=== PATIENT | female | born 1955 | race Caucasian/White ===

== ENCOUNTER 2018-05-20 13:22 | Emergency (ER) | payer MEDICAID, SELFPAY ==
[2018-05-20 13:27] VITALS: BP 180/119; PULSE 95; RESP 20; TEMP 36.9; O2SAT 93; BMI 27.4
[2018-05-20 13:28] VITALS: BP 137/96
--- NOTE | 2018-05-20 13:47 | ED.VISSUMM ---
- ER Visit Summary Date of Service: 05/20/18 Chief Complaint: Cough History of Present Illness: The patient is a 63 F 2-week history of productive cough. Subjective fevers and sweats. History of COPD, tobacco history. No home O2. Call her PCP office sent to urgent care or ED. With the urgent care was told there was nothing they can do for her sent her to the ED. No chest pains. Occasional wheezing. Mild dyspnea. Similar symptoms in the past. Physical Examination: General: Alert and oriented ?3, no acute distress HEENT: Normocephalic, atraumatic. Moist mucosa membranes Neck: supple, nontender. Cardiovascular: Regular rate and rhythm, no murmurs Respiratory: Coarse breath sounds lower lobes, no distress Abdomen: Soft, nontender, nondistended Extremities: Nontender, no edema, pulses intact ?4 Neuro: no focal neurological deficits. Test Results: Chest x-ray: No acute process Emergency Department Course and Treatment: Patient vital signs stable pulse ox 90-91% room air on my evaluation no distress. She had rhonchorous on lung exam. Given DuoNeb treatment. Symptoms improved. Chest x-ray reviewed by myself shows no acute process. O2 on reevaluation 93%. With her COPD history treated with steroids antibiotics secondary to golds criteria. Patient has aerosols at home. Antibiotic started in ED. Signs and symptoms discussed to return. Smoking cessation discussed. Treatment Plan: [] Disposition: Discharge Impression: 1. COPD exacerbation This note was generated with [employer] dictation software. It may contain incorrect words, spelling, and punctuation that were not noted in review of the chart prior to signing ED Disposition - Plan for ED Patient: Disposition: Home or Assisted Living Chief Complaint: Cough Diagnosis: COPD exacerbation Instructions: ED COPD Flare Prescriptions: Azithromycin [Zithromax] 250 mg PO DAILY #4 tablet Prednisone [Deltasone] 60 mg PO DAILY #12 tablet Referrals: Pili Acevedo [Primary Care Provider] - 3-5 Days
[2018-05-20] MEDS: predniSONE 20 MG Tablet 60 MG PO (13:58)
[2018-05-20] MEDS: Ipratropium/Albuterol Sulfate 3 ML AMPUL.NEB INHALATION (13:59)
--- NOTE | 2018-05-20 14:01 | EKG12_ITS ---
Test Reason : SOB Blood Pressure : / mmHG Vent. Rate : 094 BPM Atrial Rate : 094 BPM P-R Int : 172 ms QRS Dur : 070 ms QT Int : 334 ms P-R-T Axes : 085 203 074 degrees QTc Int : 417 ms Normal sinus rhythm Indeterminate axis Pulmonary disease pattern Right ventricular hypertrophy Abnormal ECG Confirmed by CECE CLEMENTS, RIP ([id number]), video editor TRACE PALAFOX ([id number]) on 05/24/2018 5:02:54 PM Referred By: SCAR Confirmed By:RIP ZHAO MD
[2018-05-20 14:02] VITALS: PULSE 103; RESP 20
--- NOTE | 2018-05-20 14:33 | RAD_ITS ---
STUDY: X-RAY CHEST REASON FOR EXAM: Female, 63 years old. Cough TECHNIQUE: PA and lateral views of the chest. COMPARISON: None. FINDINGS: There is a small focus of density within the middle lobe seen on the lateral view There is no demonstrated pleural abnormality.. Normal size heart. Normal mediastinum and rafia. Normal visualized pulmonary arteries. There is atherosclerotic calcification of the aortic arch with tortuosity. Normal visualized thoracic spine. Normal visualized ribs, clavicles, and shoulders. There is no demonstrated abnormality of the visualized soft tissue structures of the upper abdomen. RAD/Chest PA and Lateral IMPRESSION: Moderate focal soft tissue density seen on lateral view within the middle lobe suggesting probable small focal infiltrate and/or atelectasis.. Electronically Signed: Balbina Villela MD at 15:31 EST Tel , Service support ,
[2018-05-20 14:51] VITALS: BP 140/79; PULSE 75; RESP 20; O2SAT 93
[2018-05-20] MEDS: Azithromycin 250 MG Tablet 500 MG PO (14:53)
== END 2018-05-20 14:55 | disposition home or self-care (01) ==
PROVIDERS: Emergency Provider Emergency Medicine
DX: J44.1 Chronic obstructive pulmonary disease with (acute) exacerbation (principal); I10 Essential (primary) hypertension; Z72.0 Tobacco use; Z79.899 Other long term (current) drug therapy
CPT/HCPCS: 71046; 93005; 94640; 99283

== ENCOUNTER → 2018-06-07 16:13 | Outpatient (CLI) | payer MEDICAID, SELFPAY ==
[2018-05-20 13:27] VITALS: BMI 27.4
--- NOTE | 2018-06-07 16:16 | BI_ITS ---
MAMMOGRAPHY - BILATERAL SCREENING REASON FOR EXAM: Female, 63 years old. Routine annual screening examination. PERTINENT HISTORY: Non-contributory. TECHNIQUE: Digital bilateral breast jose ramon (3D mammographic acquisition) in the CC and MLO projections. 2-D mediolateral oblique (MLO) and craniocaudad (CC) views of both breasts were obtained. CAD: Full Field Digital Mammography with Computer Added Detection was performed. COMPARISON: None. Baseline examination. FINDINGS: Breast Composition: The breasts are heterogeneously dense, which may obscure small masses. There are no dominant masses or suspicious calcifications. Small bilateral axillary lymph nodes. No other significant abnormalities are identified. BI/SCREENING MAMM (CAD), BILAT IMPRESSION: Negative screening mammogram. Yearly followup mammogram recommended. (A) ASSESSMENT CATEGORY: BIRADS Category 2: Benign. A letter regarding these results will be sent to the patient by the facility within 30 days. Approximately 10% of breast cancers are not detected by mammography. A normal mammogram should not delay biopsy of a clinically suspicious abnormality. [id number] Electronically Signed: Bismark Milan MD at 13:43 EST , Service support ,
== END ==
DX: Z12.31 Encounter for screening mammogram for malignant neoplasm of breast (principal)
CPT/HCPCS: 77063; 77067

== ENCOUNTER → 2018-06-13 14:49 | Outpatient (CLI) | payer MEDICAID, SELFPAY ==
[2018-05-20 13:27] VITALS: BMI 27.4
--- NOTE | 2018-06-13 14:53 | ECHOD_ITS ---
Reason For Study: ABN EKG Procedure This was a 2D Doppler, Color Flow transthoracic echocardiogram. The study was technically difficult. Exam performed in department. Left Ventricle Normal LV size. Left ventricular systolic function is normal. The estimated ejection fraction is 70 %. Stage 1 diastolic dysfunction. No regional wall motion abnormalities noted. Right Ventricle Normal RV size. Normal systolic function. Atria Normal left atrium. Normal right atrium. Mitral Valve Normal mitral valve. Pulmonic Valve Normal pulmonic valve. Great Vessels Normal aortic root. The pulmonary artery is normal size. Normal inferior vena cava. Pericardium/Pleural No pericardial effusion. MMode/2D Measurements & Calculations LVIDd: 3.9 cm IVSd: 0.62 cm Ao root diam: 3.1 cm LVIDs: 2.3 cm LVPWd: 0.87 cm RVDd: 2.7 cm FS: 40.4 % LAV(MOD-bp): 23.8 ml LA dimension(2D): 3.1 cm LA A4C-A/L_phl: 10.4 cm2 LAV(MOD-bp) Indexed: 14.2 ml/m2 LAV(MOD-sp2): 28.5 ml LAV(MOD-sp4): 19.4 ml RA A4 area: 9.5 cm2 Time Measurements MV dec time: 0.31 sec Doppler Measurements & Calculations MV E max dominick: 69.7 cm/sec Lat Peak E' Dominick: 10.0 cm/sec Med Peak E' Dominick: 10.2 cm/sec MV A max dominick: 85.8 cm/sec E/E' lat: 7.0 E/E' med: 6.8 MV E/A: 0.81 Ao V2 max: 123.4 cm/sec LV V1 max: 101.5 cm/sec PA V2 max: 101.8 cm/sec Ao max P.1 mmHg LV V1 max P.1 mmHg PI end-d dominick: 150.9 cm/sec Interpretation Summary Normal LV size. Left ventricular systolic function is normal. The estimated ejection fraction is 70 %. Stage 1 diastolic dysfunction. Structurally normal valves. Ordering Physician: SELENE ABDI Referring Physician: SELENE ABDI FREE Performed By: Ariane Gómez, DIA, RVT
== END ==
DX: R94.31 Abnormal electrocardiogram [ECG] [EKG] (principal)
CPT/HCPCS: 93306

== ENCOUNTER 2018-12-25 22:23 | Inpatient (IN) | payer MEDICAID, SELFPAY ==
[2018-12-25 22:25] VITALS: BP 165/103; PULSE 78; RESP 28; TEMP 36.6; O2SAT 86; O2SAT 92; O2SAT 94; BMI 30.1
[2018-12-25 22:33] VITALS: TEMP 36.6; O2SAT 95
--- NOTE | 2018-12-25 22:33 | EKG12_ITS ---
Test Reason : CP Blood Pressure : / mmHG Vent. Rate : 082 BPM Atrial Rate : 082 BPM P-R Int : 180 ms QRS Dur : 078 ms QT Int : 372 ms P-R-T Axes : 058 103 072 degrees QTc Int : 434 ms Normal sinus rhythm Possible Right ventricular hypertrophy Abnormal ECG Confirmed by CECE CLEMENTS, RIP ([id number]), editor managing director CINTHYA DIEZ ([id number]) on 12/27/2018 1:32:02 PM Referred By: Iram Mcdowell Confirmed By:RIP ZHAO MD
--- NOTE | 2018-12-25 22:37 | RAD_ITS ---
STUDY: X-RAY CHEST REASON FOR EXAM: Female, 63 years old. Chest pain. TECHNIQUE: 2 frontal images of the chest were obtained. COMPARISON: May 20, 2018 FINDINGS: There is no new focal consolidation. Normal size heart. Normal mediastinum and rafia. Normal visualized pulmonary arteries. There is atherosclerotic calcification of the aortic arch. Normal visualized thoracic spine. Normal visualized ribs, clavicles, and shoulders. There is no demonstrated abnormality of the visualized soft tissue structures of the upper abdomen. RAD/Chest 1 View (Portable) IMPRESSION: No acute cardiopulmonary process. Electronically Signed: Ling Mendez MD at 23:15 EDT Tel , Service support ,
[2018-12-25 22:50] LABS: Absolute Lymphocyte Count 2.05 X10^3/uL (0.83-4.51); Basophil# 0.14 X10^3/uL; Basophil% 0.9 % (0-1); Eosinophil# 0.35 X10^3/uL; Eosinophils% 2.2 % (0-5); Hematocrit 53.4 % (37-47); Hemoglobin 17.5 g/dL (12.0-15.0); Lymphocyte # 2.05 X10^3/ul (4.0); Lymphocyte % 12.8 % (19-41); Mean Corp Hgb Conc 32.8 g/dL (32-36); Mean Corpuscular Hgb 28.4 pg (27.0-32.0); Mean Corpuscular Volume 86.7 fL (81-99); Mean Platelet Vol. 10.4 fl (6.2-12.0); Monocyte# 1.46 X10^3/uL; Monocyte% 9.1 % (0-10); NRBC Flagged by Analyzer 0 % (0-5); Neutrophil # 12.01 X10^3/uL (2.7-7.7); Neutrophil % 74.8 % (47-70); Platelet Count 284 K/mm3 (150-450); RBC Distribution Width CV 13.2 % (11.6-14.6); RBC Distribution Width SD 41.6 fl (35.1-43.9); Red Blood Count 6.16 M/mm3 (4.2-5.4); White Blood Count 16.1 K/mm3 (4.4-11.0)
--- NOTE | 2018-12-25 22:54 | ED.DCSUM_ITS ---
History of Present Illness Chief Complaint: Chest Pain Detail of Chief Complaint: cp/sob Informant: Patient Onset: Weeks - 1-2 Activity at onset: Light Activity Timing: Intermittent Quality: Dyspnea on exertion Current Severity: Mild Maximum Severity: Moderate Worsened by: Exertion Relieved by: Albuterol, Rest Associated Symptoms: Cough, Green sputum, Sweats - today. Negative for: Bloody Sputum, Chills, Fever, Rhinorrhea, Sore throat Chest Pain: Continuous, Aching - substernal w/ discomfort in mid-upper back as well. Negative for: Pleuritic Narrative: Patient with a history of COPD. No known heart disease. She states she quit smoking a couple weeks ago and simultaneously started using nicotine patches of some sort. Since then, she has had intermittent lightheadedness, and dyspnea with exertion. Dyspnea with exertion seems to have been getting worse. She has been coughing up some green sputum which is different than usual. She states this afternoon, at least several hours ago but she really cannot tell me how many, she started feeling clammy and sweaty, use her albuterol, and at some point started having discomfort in her upper back and her chest which is still present. She is a fairly poor historian. - Past Medical History (1) COPD (chronic obstructive pulmonary disease) Status: Chronic (2) HTN (hypertension) Status: Chronic (3) Anxiety Status: Chronic Past Medical History - Allergies and Home Meds Allergies/Adverse Reactions: Allergies diphenhydramine [From Benadryl] Allergy (Verified 05/20/18 13:24) Unknown Penicillins Allergy (Verified 05/20/18 13:24) Swelling Primary Care Physician: Pili Acevedo [Primary Care Provider] - Surgical History: hysterectomy Lives: Spouse/ Significant Other Smoking Status: Former smoker Drugs: None Review of Systems General: Reports: Malaise. Denies: Chills, Fever, Sweats Eyes: Denies: Visual changes - bilaterally, Diplopia ENT: Denies: Rhinorrhea, Sore throat Cardiovascular: Reports: Chest pain. Denies: Palpitations Respiratory: Reports: Dyspnea, Cough, Sputum, Dyspnea on exertion. Denies: Orthopnea Gastrointestinal: Denies: Abdominal pain, Nausea, Vomiting, Diarrhea, Melena, Hematochezia Genitourinary: Denies: Dysuria, Hematuria, Frequency Musculoskeletal: Reports: Back pain, Swelling - BLE lately. Denies: Extremity Pain Skin: Denies: Rash, Wounds Neurological: Denies: Headache, Weakness, Numbness Psych: Reports: Anxiety. Denies: Depression Physical Exam Vital Signs/Narrative: Vital Signs Temp Pulse Resp BP Pulse Ox 12/25/18 22:33 97.8 F 95 12/25/18 22:25 97.8 F 78 28 H 165/103 H 94 Inital Vital Signs reviewed: Yes General: Well nourished, Well developed, No Acute Distress Head: Normocephalic, Atraumatic Eyes: Perrl, EOMI ENT: Moist mucous membranes, No rhinorrhea, - - PO clear Neck: Supple, Nontender, No lymphadenopathy, No JVD Cardiovascular: Regular rate, Regular rhythm, No murmurs, Normal S1, Normal S2 Respiratory: No distress, Chest nontender, Wheezing - throughout expiration bilat, Diminished. Negative for: Rales, Rhonchi Abdomen: Soft, Nontender, Nondistended, Normal bowel sounds Back: Nontender, Normal Inspection. Negative for: CVA tenderness Extremities: Nontender, Edema - 1+ nonpitting bilat LE. Negative for: Calf Tenderness Skin: Normal color, No rash, Diaphoresis - clammy, No Trauma Neurological: Alert, Oriented x3, Cranial nerves II-XII grossly intact, Normal Strength, Normal Sensation Psychological: Normal Mood, - - anxious Diagnostic/Tx/Re-eval Impressions Chest X-Ray 12/25/18 22:37 IMPRESSION: No acute cardiopulmonary process. Electronically Signed: Ling Mendez MD at 23:15 EDT Tel , Service support , 12/25/18 22:37 Chest 1 View (Portable) [RAD] Stat Laboratory Results 12/25/18 12/25/18 22:41 22:41 WBC 16.1 H RBC 6.16 H Hgb 17.5 H Hct 53.4 H MCV 86.7 MCH 28.4 MCHC 32.8 RDW Std Deviation 41.6 RDW Coeff of Ruy 13.2 Plt Count 284 MPV 10.4 Immature Gran % (Auto) 0.200 Neut % (Auto) 74.8 H Lymph % (Auto) 12.8 L [place] % (Auto) 9.1 Eos % (Auto) 2.2 Baso % (Auto) 0.9 Absolute Neuts (auto) 12.0 H Absolute Lymphs (auto) 2.05 Nucleated RBC % 0 Sodium 136 Potassium 4.5 Chloride 99 Carbon Dioxide 30.0 Anion Gap 7 BUN 21 H Creatinine 0.99 Estim Creat Clear Calc 46.60 Est GFR (MDRD) Af Amer 73 Est GFR (MDRD) Non-Af 60 BUN/Creatinine Ratio 21.3 H Glucose 125 H Calcium 9.8 Troponin I 0.405 H - Rhythm Strip Rhythm Strip: Sinus Rhythm Rate: 82 Ectopy: None - EKG Initial EKG Interpretation: Sinus Rhythm, No Acute Injury Pattern, - - RVH Prior: Unchanged Treatment - Dyspnea: Oxygen, Albuterol, NTG SL, Lovenox SQ, Steroid, - - aspirin - Medical Decision Making EKG appears unremarkable and unchanged compared with her prior. Her chest x-ray shows no acute pneumonia or infiltrates and mediastinum is unremarkable. She was initially treated with nebulizer treatments in addition to Solu-Medrol as most of her symptoms sound related to her COPD and may also be related to some nicotine withdrawal. She was wheezy to begin with but in no respiratory distress. After 2 breathing treatments, her wheezing sounded worse, she stated that she was no more short of breath and she had no worsening or changes in her chest discomfort. Her troponin returned abnormal at 0.4, suggesting that her chest discomfort could be unstable angina although it could be due to hypoxia as well. Therefore she was given aspirin, Lovenox, also nitroglycerin to help her chest discomfort in addition to some more nebulizer treatments. She is clinically and hemodynamically stable. Discussed with hospitalist, will admit to PCU for further work-up and treatment. ED Disposition - Plan for ED Patient: Disposition: Acute Care Hospital [facility] Diagnosis: Unstable angina, COPD with exacerbation, Hypoxemia Referrals: Pili Acevedo [Primary Care Provider] -
[2018-12-25] MEDS: MethylPREDNISolone 125 MG/2 ML Vial IV (22:59)
[2018-12-25 23:06] LABS: Anion Gap 7 (5-15); BUN 21 mg/dL (7-18); BUN/Creat Ratio 21.3 RATIO (10-20); Calcium,Total 9.8 mg/dL (8.5-10.1); Chloride 99 mmol/L (98-107); Creatinine, Serum 0.99 mg/dL (0.55-1.02); EST Glomerular Filtration Rate 60 mL/min (>60); Est Glom Filt Rate - Afr Amer 73 mL/min (>60); Glucose 125 mg/dL (74-106); Potassium 4.5 mmol/L (3.5-5.1); Sodium Level 136 mmol/L (136-145)
[2018-12-25] MEDS: Ipratropium/Albuterol Sulfate 3 ML AMPUL.NEB INHALATION (23:14)
[2018-12-25] MEDS: Albuterol 2.5 MG/3 ML VIAL.NEB. INHALATION (23:15)
[2018-12-25 23:17] VITALS: PULSE 82; RESP 21
[2018-12-25 23:25] VITALS: BP 116/88; PULSE 88; RESP 20; O2SAT 97
--- NOTE | 2018-12-25 23:27 | ED.RN ---
PT IS CURRENTLY GETTING A BREATHING TREATMENT, MOUTH PIECE WAS NOT AFFECTIVE SWITCHED PT TO THE BREATHING TREATMENT MASK, PT IS SWEATING PROFUSELY DR. BLAKELY MADE AWARE, NO FURTHER NEEDS AT THIS TIME WILL CONTINUE TO MONITOR THE PT.
[2018-12-25 23:34] VITALS: BP 116/88; PULSE 85; RESP 22; TEMP 36.8; O2SAT 94
--- NOTE | 2018-12-25 23:52 | HP.PCM_ITS ---
History of Present Illness Date of Admission: 12/26/18 Chief Complaint: shortness of breath The patient is a 63 year old F with past medical history of COPD, hypertension and anxiety. She was admitted through the ED on 12/26/2018 with a complaint of shortness of breath. She quit smoking about 2 weeks ago and was started on nicotine patch but states she is not comfortable using the patch. She complains of shortness of breath was started a few hours prior to admission today. She states was relieved with use of her rescue inhalers. She also had assisted wheezing and a cough productive of greenish sputum. She denied any chest pain at time of review though she did admit to some tightness in her chest. She denied any dizziness but admitted to feeling lightheaded. Review of systems was otherwise negative. The ED, vitals were significant for tachypnea with respiratory rate of 22 at time of admission she was on 4 L of oxygen at time of review. She was afebrile and chemistry was essentially normal. Initial troponin was 0.405 and CBC showed WBC of 16.1 with hemoglobin of 17.5. Chest x- ray showed no acute cardia pulmonary process. She does have a history of DVT or PE and has not been on any long distance journey recently. EKG showed no acute ST changes and showed possible right ventricular hypertrophy. She has been admitted to be managed for acute hypoxic respiratory failure due to COPD exacerbation and non-STEMI. [] Past Medical History Past Medical History (Chronic Problems): Chronic Problems COPD (chronic obstructive pulmonary disease) (Chronic) HTN (hypertension) (Chronic) Anxiety (Chronic) COPD with exacerbation (Chronic) Allergies diphenhydramine [From Benadryl] Allergy (Verified 05/20/18 13:24) Unknown Penicillins Allergy (Verified 05/20/18 13:24) Swelling Home Medications: Ambulatory Orders Medication Instructions Recorded Albuterol Inhaler [Ventolin Hfa 1 - 2 puff INHALATION Q4H PRN PRN 05/20/18 (SP)] Metoprolol Tartrate 50 mg PO BID 05/20/18 Sertraline HCl 25 mg PO DAILY 05/20/18 Budesonide/Formoterol 160/4.5 1 puff INHALATION BID 12/26/18 [Symbicort 160/4.5 Mcg Inhaler (SP)] Lisinopril/Hydrochlorothiazide 1 ea PO DAILY 12/26/18 [Lisinopril-Hctz 10-12.5 mg Tab] Surgical History: hysterectomy Psychiatric History: Anxiety [employer] WORK[employer] History: No pertinent [employer] WORK[employer] history Lives: Spouse/ Significant Other Smoking Status: Former smoker - quit 2 weeks ago Alcohol: None Drugs: None - *Family History Maternal History Items: Asthma, COPD Paternal History Items: No pertinent history Review of Systems Constitutional: Denies: Anorexia, Chills, Fever, Malaise, Weakness, Fatigue Eyes: Denies: Blurred vision HEENT: Denies: Head Aches, Sinus Congestion, Sinus Drainage Cardiovascular: Reports: Chest Tightness. Denies: Chest Pain, Chest Pressure, Edema, Light Headedness, Orthopnea, Palpitations, Paroxysmal Noc. Dyspnea, Syncope Respiratory: Reports: Shortness of Breath, Shortness of breath at rest, Shortness of breath upon exertion, Sputum production, Wheezing. Denies: Cough, Hemoptysis, Pleuritic Pain Gastrointestinal: Denies: Abdominal Pain, Nausea, Vomiting Genitourinary: Denies: Dysuria Musculoskeletal: Denies: Joint Pain, Joint Tenderness Skin: Denies: Rash, Wounds Neurological: Denies: Numbness, Tingling, Focal weakness Psychiatric: Denies: Anxiety, Depression, Homicidal Ideations, Suicidal Ideations Hematologic/ Lymphatic: Denies: Easy Bruising, Easy Bleeding VTE Information - Inpt Only VTE Present on Admission: No VTE Pharm Prophylaxis ordered?: Yes Patient Problems: Active and Suspected Problems Unstable angina (Acute) Hypoxemia (Acute) - Physical Exam General: Alert, Oriented x3, Cooperative, No apparent distress HEENT: Atraumatic, PERRLA, EOMI, Normocephalic Oral: Dry Mucosa Neck: Supple, No JVD, Negative Carotid Bruits Lungs: Diminished, Wheezes, - - decreased breath sounds in all lung chan, lungs sound very tight. moderate wheezing in all lung chan; no crackles. on 4L of oxygen by nasal canula Cardiovascular: Regular rate, No murmurs Abdomen: Bowel Sounds Present, Soft, Non Tender Extremities: No clubbing, No cyanosis, No edema, Capillary Refill Less than 3 Seconds Skin: No rashes, No breakdown Musculoskeletal: No Tenderness to Palpation of Joints or Extremities Lymphatic: No Cervical, Supraclavicular, or Inguinal Adenopathy Neurological: Cranial nerves II-XII grossly intact, Neuro grossly intact, Motor Exam 5/5 strength throughout Psych/Mental Status: Normal Affect, Appropriate, Alert and oriented to time, place, person, mood and affect Vital Signs Temp Pulse Resp BP Pulse Ox 98.2 F 85 22 H 116/88 H 94 12/25/18 23:34 12/25/18 23:34 12/25/18 23:34 12/25/18 23:34 12/25/18 23:34 Oxygen Flow Rate (L/min) 4 Oxygen Delivery Method Room Air Weight: 164 lb 14.492 oz Body Mass Index (BMI) 30.1 Laboratory Tests Past 24 Hrs 12/25/18 12/25/18 22:41 22:41 WBC 16.1 H RBC 6.16 H Hgb 17.5 H Hct 53.4 H MCV 86.7 MCH 28.4 MCHC 32.8 RDW Std Deviation 41.6 RDW Coeff of Ruy 13.2 Plt Count 284 MPV 10.4 Immature Gran % (Auto) 0.200 Neut % (Auto) 74.8 H Lymph % (Auto) 12.8 L Wallace % (Auto) 9.1 Eos % (Auto) 2.2 Baso % (Auto) 0.9 Absolute Neuts (auto) 12.0 H Absolute Lymphs (auto) 2.05 Nucleated RBC % 0 Sodium 136 Potassium 4.5 Chloride 99 Carbon Dioxide 30.0 Anion Gap 7 BUN 21 H Creatinine 0.99 Estim Creat Clear Calc 46.60 Est GFR (MDRD) Af Amer 73 Est GFR (MDRD) Non-Af 60 BUN/Creatinine Ratio 21.3 H Glucose 125 H Calcium 9.8 Troponin I 0.405 H Diagnostic Data Chest X-Ray 12/25/18 22:37 IMPRESSION: No acute cardiopulmonary process. Electronically Signed: Ling Mendez MD at 23:15 EDT Tel , Service support , Assessment/Plan All Active Problems Unstable angina (Acute) Hypoxemia (Acute) 7-year-old female admitted with complaint of shortness of breath. 1. Acute hypoxic respiratory failure due to COPD exacerbation * admit to pCU with telemetry * CXR showed no actue cardiopulmonary process, though lungs sound very tight and she has wheezing and diminshed breath sounds * has a cough productive of greenish sputum * WBC is 16.1 * IV solumedrol 40mg q8 * breathing treatments with duonebs * sputum culture * IV levaquin 750mg daily. * titrate oxygen to maintain sats>90% * stat ABG * consider pulmo consult tomorrow if she still requires increasing amounts of oxygen * 2. NSTEMI: * initial troponin is 0.405; denies any chest pain, but admits to chest tightness. * received aspirin, and therapeutic dose of lovenox in ED * will cycle troponin * 2D echo * consult cardiology in the morning * high intensity statin * 3. COPD exacerbation: as under 1. 4. Nicotine dependence: * used to smoke ~ 1/2 pack daily; quit 2 weeks ago. * Says she cant tolerate the nicotine patch and has abstained from smoking without the aid of the patch. 5. Hypertension: on metoprolol 6. Anxiety: on sertraline DVT prophylaxis; received therapeutic dose of lovenox Code status: DNRCCA * Patient counseled extensively about different types of CODE STATUS including full code, DNR CCA and DNR CCA. Patient elects to be DNRCCA. Total [id number] time 16 minutes. Code Visit OBSV E&M: 20967 Initial observation care L3 Procedures: 56368 Advncd Care Plan 30 Min
[2018-12-25] MEDS: Enoxaparin 80 MG/0.8 ML Syringe SC (23:56)
[2018-12-25] MEDS: 0.9% Normal Saline 1,000 ML 999 ML IV (23:56)
[2018-12-25] MEDS: Aspirin 81 MG TAB.CHEW 324 MG PO (23:56)
[2018-12-25] MEDS: Nitroglycerin SL (ED/IMG/CATH) 0.4 MG TABLET SUBLINGUAL (23:58)
[2018-12-26] VITALS (36 sets, daily range): BP systolic 92–155; BP diastolic 56–97; PULSE 74–119; RESP 12–23; TEMP 36.2–37.2; O2SAT 92–99; BMI 29.3; BMI 29.4
[2018-12-26] MEDS: Albuterol 2.5 MG/3 ML VIAL.NEB. INHALATION ×2 (00:01)
[2018-12-26 00:31] LABS: Allen Test POS; Base Excess 1 mmol/L (-2 to +2); Bicarbonate 27.4 mmol/L (22-26); Blood Gas Specimen Type ART; O2 Delivery Device Nasal Can; PO2 109 mmHG (75-100); SITE R Radial; SO2 97 % (95-99); Time Given 10; Total Carbon Dioxide 29 mmol/L; pCO2 56.6 mmHg (35-45); pH 7.29 (7.35-7.45)
[2018-12-26] MEDS: levoFLOXacin IV 750 MG/150 ML BAG 100 MG IV (01:51)
[2018-12-26 02:20] LABS: Absolute Lymphocyte Count 0.57 X10^3/uL (0.83-4.51); Absolute Neutrophil Count 12.7 X10^3/uL (2.0-7.7); Basophil# 0.06 X10^3/uL; Basophil% 0.4 % (0-1); Eosinophil# 0.03 X10^3/uL; Eosinophils% 0.2 % (0-5); Hematocrit 48.7 % (37-47); Hemoglobin 16.2 g/dL (12.0-15.0); Lymphocyte # 0.57 X10^3/ul (4.0); Lymphocyte % 4.2 % (19-41); Mean Corp Hgb Conc 33.3 g/dL (32-36); Mean Corpuscular Hgb 28.6 pg (27.0-32.0); Mean Corpuscular Volume 85.9 fL (81-99); Mean Platelet Vol. 10.2 fl (6.2-12.0); Monocyte# 0.17 X10^3/uL; Monocyte% 1.3 % (0-10); NRBC Flagged by Analyzer 0 % (0-5); Neutrophil % 93.7 % (47-70); POSITIVE DIFFERENTIAL YES; Platelet Count 220 K/mm3 (150-450); RBC Distribution Width CV 13.2 % (11.6-14.6); RBC Distribution Width SD 41.7 fl (35.1-43.9); Red Blood Count 5.67 M/mm3 (4.2-5.4); White Blood Count 13.6 K/mm3 (4.4-11.0)
[2018-12-26 02:23] LABS: Differential Indicated SCAN CRITERIA MET
[2018-12-26 02:35] LABS: Cholesterol 215 mg/dL (200); High Density Lipoprotein 82 mg/dL; Triglycerides 55 mg/dL; Very Low Density Lipoprotein 11 mg/dL (5-40)
[2018-12-26] MEDS: Acetaminophen 325 MG Tablet 650 MG PO (02:43)
[2018-12-26 03:38] LABS: Differential Comment SCANNED
[2018-12-26 04:29] LABS: Anion Gap 9 (5-15); Chloride 105 mmol/L (98-107); Potassium 4.1 mmol/L (3.5-5.1); Sodium Level 139 mmol/L (136-145)
[2018-12-26 04:32] LABS: BUN 21 mg/dL (7-18); Calcium,Total 9.3 mg/dL (8.5-10.1); Creatinine, Serum 0.84 mg/dL (0.55-1.02); EST Glomerular Filtration Rate 73 mL/min (>60); Est Glom Filt Rate - Afr Amer 88 mL/min (>60); Estimated Creatinine Clearance 54.92 ml/min; Glucose 144 mg/dL (74-106)
[2018-12-26] MEDS: 0.9% NaCl Peripheral Flush Adult/Peds IV (05:27)
--- NOTE | 2018-12-26 05:55 | ECHOCS_ITS ---
Reason For Study: Dyspnea/SOB Procedure This was a 2D Doppler, Color Flow transthoracic echocardiogram. The study was technically difficult. Contrast injection was performed. Exam performed portable in ICU/CCU. Left Ventricle Normal LV size. The estimated ejection fraction is 50 %. Mild segmental systolic dysfunction (see wall motion). Stage 1 diastolic dysfunction. Mid-Inferior: Hypokinetic. Mid-anteroseptal : Mildly hypokinetic. Mid-Anterior : Mildly hypokinetic. The rest of the wall segments are normal. Right Ventricle Normal RV size. Normal systolic function. Atria Normal left atrium. Normal right atrium. Mitral Valve Normal mitral valve. Tricuspid Valve Normal tricuspid valve. Aortic Valve The aortic valve is not well visualized. Pulmonic Valve Normal pulmonic valve. Great Vessels Normal aortic root. The pulmonary artery is normal size. Normal inferior vena cava. Pericardium/Pleural No pericardial effusion. Medication Diluted definity 3ml given slow IV push to enhance endocardial definition. MMode/2D Measurements & Calculations LVIDd: 3.9 cm IVSd: 0.77 cm Ao root diam: 2.5 cm LVIDs: 2.9 cm LVPWd: 0.83 cm FS: 26.9 % LAV(MOD-bp): 17.2 ml LA A4 area: 8.0 cm2 LA dimension(2D): 3.0 cm LAV(MOD-bp) Indexed: 9.9 ml/m2 LAV(MOD-sp2): 19.1 ml LAV(MOD-sp4): 15.4 ml RA A4 area: 5.9 cm2 Doppler Measurements & Calculations MV E max dominick: 47.9 cm/sec Lat Peak E' Dominick: 5.6 cm/sec Med Peak E' Dominick: 4.6 cm/sec MV A max dominick: 86.1 cm/sec E/E' lat: 8.5 E/E' med: 10.5 MV E/A: 0.56 Ao V2 max: 123.6 cm/sec LV V1 max: 111.4 cm/sec Ao max P.1 mmHg LV V1 max P.0 mmHg Ao V2 mean: 90.9 cm/sec Ao mean P.6 mmHg Ao V2 VTI: 19.6 cm Interpretation Summary Normal LV size. The estimated ejection fraction is 50 %. Mild segmental systolic dysfunction (see wall motion). Stage 1 diastolic dysfunction. Contrast injection was performed. Ordering Physician: Iram Mcdowell Referring Physician: Pili Alcocer Free [facility] Performed By: Leyla Arteaga RDCS, RVT
[2018-12-26] MEDS: Ipratropium/Albuterol Sulfate 3 ML AMPUL.NEB INHALATION ×4 (07:15→19:25)
--- NOTE | 2018-12-26 07:18 | CON.PCM_ITS ---
Reason for Consult Date of Consultation: 12/26/18 Reason for Consultation: Chest tightness History of Present Illness: The patient is a 63 year old F with past medical history of COPD, hypertension and anxiety. She was admitted through the ED on 12/26/2018 with a complaint of shortness of breath. She quit smoking about 2 weeks ago and was started on nicotine patch but states she is not comfortable using the patch. She complains of shortness of breath was started a few hours prior to admission today. She states was relieved with use of her rescue inhalers. She also had assisted wheezing and a cough productive of greenish sputum. She had experienced some chest tightness which she said went into her back then was also associated with a headache. It was not long-lasting. She presented to the emergency room was evaluated and admitted for further evaluation. Cardiac troponin enzymes were noted to be mildly abnormal initially and then further on appear to elevate. She has denied any previous episodes of chest discomfort with exertion. She however complains of a persistent headache. Past Medical History Allergies/Adverse Reactions: Allergies diphenhydramine [From Benadryl] Allergy (Verified 05/20/18 13:24) Unknown Penicillins Allergy (Verified 05/20/18 13:24) Swelling Home Medications: Ambulatory Orders Medication Instructions Recorded Albuterol Inhaler [Ventolin Hfa 1 - 2 puff INHALATION Q4H PRN PRN 05/20/18 (SP)] Metoprolol Tartrate 50 mg PO BID 05/20/18 Sertraline HCl 25 mg PO DAILY 05/20/18 Budesonide/Formoterol 160/4.5 1 puff INHALATION BID 12/26/18 [Symbicort 160/4.5 Mcg Inhaler (SP)] Lisinopril/Hydrochlorothiazide 1 ea PO DAILY 12/26/18 [Lisinopril-Hctz 10-12.5 mg Tab] Past Medical History (Chronic Problems): Chronic Problems COPD (chronic obstructive pulmonary disease) (Chronic) HTN (hypertension) (Chronic) Anxiety (Chronic) COPD with exacerbation (Chronic) Surgical History: hysterectomy Psychiatric History: Anxiety NURSING STUDENT History: No pertinent NURSING STUDENT history - *Family History Maternal History Items: Asthma, COPD Paternal History Items: No pertinent history Lives: Spouse/ Significant Other Smoking Status: Former smoker Alcohol: None Drugs: None Review of Systems - Review of Systems General: Denies: Fever, Night Sweats, Fatigue HEENT: Denies: Vision Change Cardiovascular: Reports: Chest Discomfort, Chest Discomfort at Rest. Denies: Shortness of Breath, Orthopnea, PND, Peripheral Edema, Palpitations, Lightheadedness, Dizziness, Near Syncope, Syncope Respiratory: Denies: Cough, Sputum Production, Hemoptysis Gastrointestinal: Denies: Hematemesis, Hematochezia, Melena Genitourinary: Denies: Dysuria, Hematuria Muscoloskeletal: Reports: Myalgias Skin: Denies: Rash Neurological: Reports: Dizziness Psychiatric: Reports: Anxiety Endocrine: Denies: Unexplained Weight Loss Hematologic/ Lymphatic: Denies: Anemia Subjectve: Pleasant lady in no distress Objective: Vital Signs Temp Pulse Resp BP Pulse Ox 97.5 F L 102 H 20 H 137/81 H 94 12/26/18 05:30 12/26/18 05:30 12/26/18 05:30 12/26/18 05:30 12/26/18 05:30 Oxygen Flow Rate (L/min) 2 Oxygen Delivery Method Nasal Cannula Weight: 160 lb 7.944 oz Body Mass Index (BMI) 29.3 Intake and Output for Last 24 Hours 12/24/18 12/25/18 12/26/18 23:59 23:59 23:59 Intake Total 402 / 402 Balance 402 / 402 General: Awake, Alert, Oriented x 3 HEENT: PERRL, EOMI, Sclera Non Icteric Neck: Supple, Good ROM, No Lymph Node Enlargement Lungs: Clear to auscultation Cardiovascular: Regular Rhythm, Normal S1, Normal S2, No Murmurs, No Rubs, No Gallops Vascular: No Carotid Bruits, Normal Femoral Pulses, Normal Radial Pulses, Normal Dorsalis Pedal Pulse, Normal Posterior Tibial Pulses Abdomen: Bowel Sounds Present, Soft, Non Tender, No HSM, No Organomegaly Extremities: No Cyanosis, No Clubbing, No edema Musculoskeletal: No Erythema Skin: No Rashes Lymphatic: No Lymph Node Enlargement Neurological: No Focal Motor or Sensory Deficit Psych/Mental Status: Appropriate 12/25/18 22:41: WBC 16.1 H, RBC 6.16 H, Hgb 17.5 H, Hct 53.4 H, MCV 86.7, MCH 28.4, MCHC 32.8, Plt Count 284, MPV 10.4, Immature Gran % (Auto) 0.200, Neut % (Auto) 74.8 H, Lymph % (Auto) 12.8 L, [place] % (Auto) 9.1, Eos % (Auto) 2.2, Baso % (Auto) 0.9, Absolute Neuts (auto) 12.0 H, Nucleated RBC % 0 12/25/18 22:41: Sodium 136, Potassium 4.5, Chloride 99, Carbon Dioxide 30.0, Anion Gap 7, BUN 21 H, Creatinine 0.99, Est GFR (MDRD) Af Amer 73, Est GFR (MDRD) Non-Af 60, BUN/Creatinine Ratio 21.3 H, Glucose 125 H, Calcium 9.8, Troponin I 0.405 H 12/26/18 00:27: pH 7.29 L, Bicarbonate Actual 27.4 H, POC Total CO2 29, Base Exc ess 1, O2 Saturation 97, ABG pCO2 56.6 H, ABG pO2 109 H, Saeid Test POS 12/26/18 01:57: Triglycerides 55, Cholesterol 215 H, LDL Cholesterol 122, VLDL Cholesterol 11, HDL Cholesterol 82 12/26/18 01:57: Troponin I 1.420 H* 12/26/18 01:57: WBC 13.6 H, RBC 5.67 H, Hgb 16.2 H, Hct 48.7 H, MCV 85.9, MCH 28.6, MCHC 33.3, Plt Count 220, MPV 10.2, Immature Gran % (Auto) 0.200, Neut % (Auto) 93.7 H, Lymph % (Auto) 4.2 L, [place] % (Auto) 1.3, Eos % (Auto) 0.2, Baso % (Auto) 0.4, Absolute Neuts (auto) 12.7 H, Nucleated RBC % 0 12/26/18 01:57: Sodium 139, Potassium 4.1, Chloride 105, Carbon Dioxide 25.0, Anion Gap 9, BUN 21 H, Creatinine 0.84, Est GFR (MDRD) Af Amer 88, Est GFR (M DRD) Non-Af 73, BUN/Creatinine Ratio 25.0 H, Glucose 144 H, Calcium 9.3 12/26/18 04:52: Troponin I 1.130 H* Rhythm: EKG: Normal sinus rhythm with a rate of 81 bpm and no acute changes Assessment/Plan 1. Non-ST elevation myocardial infarction * Patient presents with somewhat atypical symptoms and is noted to have a non-ST elevation myocardial infarction with no EKG changes. I suspect that her chest discomfort was anginal in origin. * After discussion with the patient would recommend a cardiac catheterization. The risk benefits alternatives have been explained to her she understands and agrees to proceed. * Continue with aspirin * Loaded with clopidogrel * Continue beta-justin. * Further recommendations will depend on the results of the above * 2. Hyperlipidemia * Patient actually has an acceptable lipid profile and we will continue with the current therapy. * Continue statin * 3. Hypertension * Patient's blood pressure appears to be under good control we will continue current medical therapy. * * Thank you for allowing me to participate in the care of your patient. Please don't hesitate to call if any issues arise
[2018-12-26] MEDS: Metoprolol Tartrate 50 MG Tablet PO (07:58)
[2018-12-26 08:00] LABS: Hemoglobin A1c 5.8 % (4.2-6.3)
[2018-12-26] MEDS: TICAGRELOR 90 MG TABLET 180 MG PO (08:00)
--- NOTE | 2018-12-26 09:06 | CL.D_ITS ---
Patient Name: DIANA STATON I Study Date: 12/26/2018 Performing: Tico Mcgarry MD Ht: 61.81 inches 157 cm : 1955 Wt: 160.94 lbs 73 kg Age: 63 Gender: female BSA: 1.74 PROCEDURE(S) PERFORMED [id number]-[id number]/COR/LV CLINICAL PROFILE AND INDICATIONS Indications: ACS <= 24 hrs Heart Failure: None Stress/Imaging Stress/Image Study Performed: No CONCLUSIONS Mild coronary artery disease involving the proximal mid left anterior descending artery, mild disease involving the circumflex artery, high-grade stenosis in a nondominant but large right coronary arter y. And mildly depressed left ventricular systolic function with hypokinetic inferior wall RECOMMENDATIONS Referred for immediate PCI DESCRIPTION OF PROCEDURE The patient arrived to the procedure lab. The risks and benefits of the procedure as well as a full d escription of our services here and current unavailability of surgical backup were fully explained to the patient and/or their significant other prior to the catheterization. The Timeout was completed, verifying the correct patient and procedure. The patient's procedural site was prepped and draped in the usual fashion. Local anesthetic was given subcutaneously to right groin region with Lidocaine 2%. Using a modified Seldinger technique, arterial access was obtained via the right femoral artery, a 5 Fr sheath was inserted. Left Coronary Artery selective angiography was performed in multiple views u sing a 5 Fr. JL4 catheter. Right Coronary Artery selective angiography was then performed in multiple views using a 5 Fr. 3DRC (Franky) catheter. Left Ventriculography was performed in BHATT projection using a 5 Fr. Pigtail catheter. LV to AO pullback pressures were then recorded. CORONARY ANGIOGRAPHY DOMINANCE: Left Dominant LEFT HEART ASSESSMENT Left Ventricular Ejection Fraction: by LV Gram 45 % Anterior Hypokinesis - Mild. Inferior Mid Hypokinesis - Moderate Depressed Left Ventricular systolic function LEFT MAIN: Mild calcification LEFT ANTERIOR DESCENDING ARTERY: PROX LAD: Mild luminal irregularities less than 30% MID LAD: Mild luminal irregularities less than 30% CIRCUMFLEX ARTERY: MID CIRC: Non-obstructive RIGHT CORONARY ARTERY: MID RCA: 80 % Stenosis COMPLICATIONS PROCEDURE MEDICATIONS Versed 1 mg IV Oxygen: 2 L/min via nasal cannula Baby Aspirin (81mg) 1 Tabs PO @ 12/26/2018 08:22:16 Heparin 6000 unit(s) IV 12/26/2018 08:56:34 Nitro 200 mcg IC 12/26/2018 08:57:52 Nitro 200 mcg IC 12/26/2018 08:57:52 IV Bolus: .9 NaCl ml total 12/26/2018 08:58:00 SUMMARY OF HEMODYNAMIC DATA Time AIR REST ECG 08:19:42 AO 109/75 (92) SA 08:40:03 LV 107/10, 18 08:48:04 LV 113/13, 19 08:48:11 LV 124/1, 24 08:49:20 LVp 128/1, 28 08:49:33 AOp 135/77 (103) 08:49:38 Signed By Tico Mcgarry MD On 12/26/2018 09:05:26 Tico Mcgarry MD
--- NOTE | 2018-12-26 09:15 | NURSING ---
report called to Leia PALMER in ICU
--- NOTE | 2018-12-26 09:37 | CL.I_ITS ---
Patient Name: DIANA STATON I Study Date: 12/26/2018 Performing: Champ Michel MD Ht: 61.81 inches 157 cm : 1955 Wt: 160.94 lbs 73 kg Age: 63 Gender: female BSA: 1.74 PROCEDURE(S) PERFORMED [id number] W OR WO PTCA, SINGLE CORONARY ARTERY CLINICAL PROFILE AND CO-MORBIDITIES Patient presents with NSTEMI for urgent cardiac cath Indications: ACS <= 24 hrs, ACS <= 24 hrs, New Onset Angina <= 2 months Heart Failure: Newly Diagnosed: Yes, NYHA Class: 1, Heart Failure Type: Systolic Stress/Imaging Stress/Image Study Performed: No Stress/Image Study Performed: No Angina Classification Anginal Classification w/in 2 Weeks: CCS III CAD Presentations: Non-STEMI. Symptom onset Date/Time: 12/25/2018 Time Not Available Comorbidities/Risk Factors: Current/Recent Smoker (< 1year) Hypertension Dyslipidemia Chronic Lung Disease CONCLUSIONS Successful PTCA/ADE mid RCA with a 2.25 x 16 Promus Synergy, 85%-->0%, no dissection. RECOMMENDATIONS Highly recommend quitting all tobacco products Follow up with primary forensic artist Risk factor modification ASA Indefinitley Plavix for at least 12 months Routine post interventional care Refer for Outpatient Cardiac Rehab Manual sheath removal per protocol Follow up with Dr. Mcgarry Stress test in 2 weeks to eval LAD and LCX lesions. Successful Mynx Control of RFA. DESCRIPTION OF PROCEDURE The patient arrived to the procedure lab. The risks and benefits of the procedure as well as a full d escription of our services here and current unavailability of surgical backup were fully explained to the patient and/or their significant other prior to the catheterization. The Timeout was completed, verifying the correct patient and procedure. The patient's procedural site was prepped and draped in the usual fashion. Local anesthetic was given subcutaneously to right groin region with Lidocaine 2% Using a modified Seldinger technique,arterial access was obtained via the right femoral artery, a 5Fr sheath was inserted. Left Coronary Artery selective angiography was performed in multiple views usin g a 5 Fr. JL4 catheter. Right Coronary Artery selective angiography was then performed in multiple vi ews using a 5 Fr. 3DRC (Franky) catheter. Left Ventriculography was performed in BHATT projection usi ng a 5 Fr. Pigtail catheter. LV to AO pullback pressures were then recorded.The images were reviewed and options discussed. A decision was then made to proceed with an Intervention, IVUS o r other adjunct procedure. Arterial sheath was exchanged for a 6fr 45cm sheath HS II Guide catheter was inserted and engaged into the RCA. BMW Guide wire was advanced to the RCA. Angiogram performed pre balloon dilatation. Em erge 2.00x12 Balloon catheter was inserted. PTCA balloon inflated at 6 atms for 12 secs. PTCA balloon inflated at 8 atms for 9 secs. Angiogram performed post balloon dilatation. Synergy 2.25x16 Drug Elu ting stent was inserted. Drug Eluting stent was removed intact, failed to cross lesion Emerge 2.00x12 Balloon catheter was inserted. Emerge 2.00x8 Balloon catheter was inserted. PTCA balloon inflated at 10 atms for 12 secs. PTCA balloon inflated at 8 atms for 7 secs. Angiogram performed post balloon di latation. Synergy 2.25x16 Drug Eluting stent was inserted. Angiogram performed post stent deployment. Arterial sheath was exchanged for a 6 Fr Sheath. Contrast was injected through the sheath and the Ri ght Iliac and Femoral artery were assessed for possible closure device. The arterial sheath was pulled and a Mynx closure device was deployed for hemostasis INTERVENTION INFORMATION LESION SITE: RCA (Mid) Lesion Complexity: Non-High/Non-C, lesion at bifurcation: No, thrombus present: No, lesion length: 16 mm, culprit lesion: Yes Pre Stenosis: 85 % Pre intervention VICTOR M flow: 3 PROCEDURE: Drug Eluting Stent with pre dilatation. Post Stenosis: 0 % Post intervention VICTOR M flow: 3 COMPLICATIONS No Complications PROCEDURE MEDICATIONS Versed 1 mg IV Oxygen: 2 L/min via nasal cannula Baby Aspirin (81mg) 1 Tabs PO @ 12/26/2018 08:22:16 Heparin 6000 unit(s) IV 12/26/2018 08:56:34 Nitro 200 mcg IC 12/26/2018 08:57:52 Nitro 200 mcg IC 12/26/2018 08:57:52 Nitro 200 mcg IC 12/26/2018 09:03:30 IV Bolus: .9 NaCl 400ml total 12/26/2018 08:58:00 SUMMARY OF HEMODYNAMIC DATA Time AIR REST ECG 08:19:42 AO 109/75 (92) SA 08:40:03 LV 107/10, 18 08:48:04 LV 113/13, 19 08:48:11 LV 124/1, 24 08:49:20 LVp 128/1, 28 08:49:33 AOp 135/77 (103) 08:49:38 Signed By Champ Michel MD On 12/26/2018 09:36:13 Champ Michel MD
--- NOTE | 2018-12-26 09:47 | EKG12_ITS ---
Test Reason : Blood Pressure : / mmHG Vent. Rate : 090 BPM Atrial Rate : 090 BPM P-R Int : 164 ms QRS Dur : 072 ms QT Int : 342 ms P-R-T Axes : 086 076 024 degrees QTc Int : 418 ms Normal sinus rhythm Low voltage QRS T wave abnormality, consider anterior ischemia Abnormal ECG When compared with ECG of 26-DEC-2018 10:02, MANUAL COMPARISON REQUIRED, DATA IS UNCONFIRMED Confirmed by JOSAFAT RODAS ([id number]), newspaper managing editor MOISE AGUIRRE ([id number]) on 01/02/2019 2:26:05 PM Referred By: Iram Mcdowell Confirmed By:JOSAFAT RODAS
[2018-12-26] MEDS: 0.9% Normal Saline 1,000 ML 150 ML IV (09:57)
--- NOTE | 2018-12-26 12:00 | PN_ITS ---
Patient Problems: Active and Suspected Problems Unstable angina (Acute) Hypoxemia (Acute) Subjective: Feels much better after her stent. No more chest pain Vitals/I&O's: Vital Signs Temp Pulse Resp BP Pulse Ox 98.4 F 92 19 H 145/88 H 98 12/26/18 09:45 12/26/18 11:06 12/26/18 11:06 12/26/18 11:00 12/26/18 11:00 Oxygen Flow Rate (L/min) 2 Oxygen Delivery Method Nasal Cannula Weight: 160 lb 7.944 oz Body Mass Index (BMI) 29.3 Intake and Output for Last 24 Hours 12/24/18 12/25/18 12/26/18 23:59 23:59 23:59 Intake Total 402 / 402 Balance 402 / 402 General: Alert, Oriented x3, Cooperative, No apparent distress HEENT: Atraumatic, PERRLA, EOMI, Normocephalic Oral: Moist Mucosa Neck: Supple, No JVD Lungs: Clear to auscultation, Normal air movement, No rhonchi, No rales, Wheezes - Slight Cardiovascular: Regular rate, Regular Rhythm, Normal S1, Normal S2, No murmurs Abdomen: Soft, Non Tender, Non-Distended, No Hepato-splenomegaly Extremities: No edema, Capillary Refill Less than 3 Seconds Skin: No rashes, No breakdown, Incision - Dressing over the cath site is intact Neurological: Neuro grossly intact, Sensory exam intact to light touch and pain Psych/Mental Status: Normal Affect, Appropriate Laboratory Results 12/25/18 22:41: WBC 16.1 H, RBC 6.16 H, Hgb 17.5 H, Hct 53.4 H, MCV 86.7, MCH 28.4, MCHC 32.8, RDW Std Deviation 41.6, RDW Coeff of Ruy 13.2, Plt Count 284, MPV 10.4, Immature Gran % (Auto) 0.200, Neut % (Auto) 74.8 H, Lymph % (Auto) 12.8 L, [place] % (Auto) 9.1, Eos % (Auto) 2.2, Baso % (Auto) 0.9, Absolute Neuts (auto) 12.0 H, Absolute Lymphs (auto) 2.05, Nucleated RBC % 0 12/25/18 22:41: Sodium 136, Potassium 4.5, Chloride 99, Carbon Dioxide 30.0, Anion Gap 7, BUN 21 H, Creatinine 0.99, Estim Creat Clear Calc 46.60, Est GFR (MDRD) Af Amer 73, Est GFR (MDRD) Non-Af 60, BUN/Creatinine Ratio 21.3 H, Glucose 125 H, Calcium 9.8, Troponin I 0.405 H 12/26/18 00:27: Specimen Type ART, Sample Site R Radial, pH 7.29 L, Bicarbonate Actual 27.4 H, POC Total CO2 29, Base Excess 1, O2 Saturation 97, ABG pCO2 56.6 H, ABG pO2 109 H, Saeid Test POS, O2 Delivery Device Nasal Can, Liter Flow 4.0, Blood Gas Notified Whom JUSTA CLEMENTS, Blood Gas Notified Time 10 12/26/18 01:57: Triglycerides 55, Cholesterol 215 H, LDL Cholesterol 122, VLDL Cholesterol 11, HDL Cholesterol 82 12/26/18 01:57: Hemoglobin A1c 5.8 12/26/18 01:57: Troponin I 1.420 H* 12/26/18 01:57: WBC 13.6 H, RBC 5.67 H, Hgb 16.2 H, Hct 48.7 H, MCV 85.9, MCH 28.6, MCHC 33.3, RDW Std Deviation 41.7, RDW Coeff of Ruy 13.2, Plt Count 220, MPV 10.2, Immature Gran % (Auto) 0.200, Neut % (Auto) 93.7 H, Lymph % (Auto) 4.2 L, [place] % (Auto) 1.3, Eos % (Auto) 0.2, Baso % (Auto) 0.4, Absolute Neuts (auto) 12.7 H, Absolute Lymphs (auto) 0.57 L, Nucleated RBC % 0, Differential Comment SCANNED 12/26/18 01:57: Sodium 139, Potassium 4.1, Chloride 105, Carbon Dioxide 25.0, Anion Gap 9, BUN 21 H, Creatinine 0.84, Estim Creat Clear Calc 54.92, Est GFR (MDRD) Af Amer 88, Est GFR (MDRD) Non-Af 73, BUN/Creatinine Ratio 25.0 H, Glucose 144 H, Calcium 9.3 12/26/18 04:52: Troponin I 1.130 H* Current Medications Acetaminophen (Tylenol) 650 mg PO Q6H PRN PRN PRN Reason: PAIN Last Admin: 12/26/18 02:43 Dose: 650 mg Documented by: Albuterol/Ipratropium (Duoneb) 3 ml INHALATION Q4H.RT [facility] Last Admin: 12/26/18 11:04 Dose: 3 ml Documented by: Aspirin (Ecotrin) 81 mg PO DAILY@0800 [facility] Atorvastatin Calcium (Lipitor) 80 mg PO QHS [facility] Atropine Sulfate () 0.5 mg IV UD PRN PRN Reason: HR <50 bpm Carvedilol (Coreg) 3.125 mg PO BID [facility] Dextrose (D50w Syringe) 0 gm IV X1 PRN; Protocol PRN Reason: Hypoglycemia Diazepam (Valium) 5 mg PO Q6H PRN PRN PRN Reason: BACK SPASMS/ANXIETY Glucagon () 1 mg IM .X1 PRN PRN Reason: Hypoglycemia Heparin Sodium (Beef Lung) (Heparin 500 Unit/5 Ml (100/Ml)) 500 unit IV UD PRN PRN Reason: HEPARIN FLUSH Levofloxacin (Levaquin Iv) 750 mg in 150 mls @ 100 mls/hr IV Q48 [facility] Last Admin: 12/26/18 01:51 Dose: 100 mls/hr Documented by: Sodium Chloride () 1,000 mls @ 0 mls/hr IV .Q0M [facility] Sodium Chloride () 1,000 mls @ 150 mls/hr IV .Q6H40M [facility] Stop: 12/26/18 16:26 Last Admin: 12/26/18 09:57 Dose: 150 mls/hr Documented by: Labetalol HCl (Trandate) 5 mg IV X1 PRN PRN Reason: SBP > 160 PRIOR TO SHEATH PULL Losartan Potassium (Cozaar) 12.5 mg PO DAILY [facility] Methylprednisolone (Solu-Medrol) 40 mg IV Q8 [facility] Last Admin: 12/26/18 05:27 Dose: 40 mg Documented by: Morphine Sulfate () 2 mg IV Q4H PRN PRN PRN Reason: Mild back pain (0-2/10) Nitroglycerin (Nitrostat) 0.4 mg SUBLINGUAL Q5M PRN PRN Reason: CARDIAC/CHEST PAIN Nitroglycerin (Nitrostat) 0.4 mg SUBLINGUAL Q5M PRN PRN Reason: CARDIAC/CHEST PAIN Ondansetron HCl (Zofran) 4 mg IV Q8H PRN PRN PRN Reason: NAUSEA/VOMITING Sertraline HCl (Zoloft) 25 mg PO QHS [facility] Sodium Chloride () 10 - 40 ml IV UD PRN PRN Reason: SALINE FLUSH Last Admin: 12/26/18 05:27 Dose: 10 ml Documented by: Sodium Chloride () 500 ml IV BOLUS PRN PRN Reason: VASO-VAGAL PROTOCOL Ticagrelor (Brilinta) 90 mg PO BID [facility] Medical Necessity - Tobacco Use Smoking Status: Former smoker Assessment/Plan All Active Problems Unstable angina (Acute) Hypoxemia (Acute) 1. Acute hypoxic respiratory failure secondary to COPD exacerbation and an NSTEMI/HTN/HLD -Troponin peaked at 1.420 -Cardiac cath today with a stent in the RCA -Continue with aspirin and Brilinta as well as statin -Echo pending -Appreciate cardiology assistance -Continue with nebulizers and Solu-Medrol 3 times daily -She is on Levaquin q48 hr secondary to creatinine clearance because of an elevated WBC on admission -White count decreased from 16 to 13, however chest x-ray was negative for any consolidation and she has been afebrile -Oxygen requirements down to 2 L -Tinea with Coreg and losartan 2. Anxiety/depression -Stable -Continue with Zoloft 3. Tobacco abuse -Advised continued cessation -States she quit smoking 2 weeks ago DVT: SCDs Code Visit Inpatient E&M: 24682 Subs Hosp L2
--- NOTE | 2018-12-26 12:21 | NURSING ---
patient noncompliant with restrictions on groin management continued to move right leg despite being redirected. Patient developed hematoma this RN explained to patient the importance of adhering to groin limitations again. states she understands and will try to adhere to restrictions
--- NOTE | 2018-12-26 12:30 | NURSING ---
roy placed by Pineda harris RN
[2018-12-26] MEDS: Losartan Potassium 25 MG Tablet 12.5 MG PO (13:10)
[2018-12-26] MEDS: Carvedilol 3.125 MG TABLET PO ×2 (13:11→21:02)
--- NOTE | 2018-12-26 13:56 | CRPHASE1 ---
Patient Communication PHII Cardiac Rehab Discussed with Patient:: Yes Guide to Cardiac Rehab Given to Patient:: Yes Cardiac Rehab Facility Choice List Given to Patient:: Yes Choice Program [facility] CR PHII:: Communication Given to CR Grinder Set Up Operator Universal:: Champ Michel Phase II Cardiac Rehab:: Yes Sessions:: 36 sessions - 3 days/wk, 12 weeks Risk Factors/Lifestyle Smoking Status: Former smoker Hx Hypertension: Yes Hx Diabetes Mellitus Type 1: No Hx Diabetes Mellitus Type 2: No Hx Metabolic Disorders: No Hx Dyslipidemia: Yes Hx Obesity: Yes Height: 5 ft 2 in - BMI 29.4 Post-Menopausal: Yes Stress: Home/Family Risk Factor for Sedentary Lifestyle: Moderate Risk Laboratory Values: Cardiac Rehab Phase I Labs 5.8 % (4.2-6.3) 12/26/18 01:57 Triglycerides 55 mg/dL (-199) 12/26/18 01:57 Cholesterol 215 mg/dL (200) H 12/26/18 01:57 122 mg/dL (0-130) 12/26/18 01:57 82 mg/dL (40-) 12/26/18 01:57 Phase I Education Given On:: [place], Nutrition, Antiplatelet medication Issues Affecting Care:: None Knowledge of Condition:: Yes Learning Preferences: Verbal, Written - FAMILY AT BEDSIDE Medical/Surgical History [place]:: No COPD:: Yes Anxiety:: Yes Discharge/Home/Social Eval Discharge Disposition: Home Cardiac Rehabilitation Info Cardiac Rehabilitation Program Information: Cardiac Rehabilitation is important for patients like you who are recovering from a heart problem. Cardiac rehabilitation programs are recognized as integral to the continued care of the patient with coronary heart disease. The cardiac rehabilitation program is designed to optimize a patient's physical, psychological, and social functioning. Health post acute care nurse work in cardiac rehabilitation programs and assist you with getting the treatments you need to get stronger and healthier - like exercise, healthy eating habits, and medications. Cardiac rehabilitation has been show to help people with heart problems live longer and have better life enjoyment than people who do not go to cardiac rehabilitation. Please contact the Cardiac Rehabilitation Program at [facility] at in two weeks if you have not heard from them.
--- NOTE | 2018-12-26 13:59 | CRPH1.INSTRU ---
General Education CAD and cardiac anatomy and function:: Patient communicates acknowledgment, Family communicates acknowledgment Explanation of diagnoses and procedures:: Patient communicates acknowledgment, Family communicates acknowledgment Sign/Symptoms of OH:: Patient communicates acknowledgment, Family communicates acknowledgment Antiplatelet therapy: Patient communicates acknowledgment, Family communicates acknowledgment Proper use of NTG-SL: Not instructed Emergency procedures and activation of EMS: Patient communicates acknowledgment, Family communicates acknowledgment Compliance of all prescribed medications: Patient communicates acknowledgment, Family communicates acknowledgment Smoking Recommendations Include:: Previous smoker; encourage continued cessation Nicotine/Smoking Response Code:: Patient communicates acknowledgment, Family communicates acknowledgment Dyslipidemia Patient Dyslipidemia Risk Factors Are:: Total Cholesterol Recommendations Include:: Lipid profile provided, Reviewed NCEP/ATP guidelines, Therapeutic Lifestyle Change dietary guidelines Dyslipidemia Response Code:: Patient communicates acknowledgment, Family communicates acknowledgment Overweight/Obesity Patient Overweight/Obesity Risk Factors Are:: Overweight = 26-29 Recommendations Include:: Weight loss of 5-10%, Reduced calorie diet, Exercise 5-7 times/week Overweight/Obesity:: Patient communicates acknowledgment, Family communicates acknowledgment Hypertension Recommendations Include:: Maintain BP <130/85, DASH dietary guidelines, Decrease/maintain normal body weight, Moderation of ETOH Hypertension:: Patient communicates acknowledgment, Family communicates acknowledgment Heart Disease Recommendations Include:: Educated family members of their risk Heart Disease Response Code:: Patient communicates acknowledgment, Family communicates acknowledgment Diabetes Patient Diabetes Risk Factors Are:: No documented hx of diabetes Metabolic Syndrome Recommendations Include:: Does not meet criteria Sedentary Patient Sedentary Risk Factors Are:: Lack of regular exercise Recommendations Include:: Aerobic exercise 5-7 times/week for 20-30 minutes continuously, Benefits of regular exercise, Discussed home walking program, Monitored Outpatient Cardiac Rehab Sedentary Response Code:: Patient communicates acknowledgment, Family communicates acknowledgment Stress Recommendations Include:: Identification of stressors, and assessment of coping skills, Stress management techniques Stress Response Code:: Patient communicates acknowledgment, Family communicates acknowledgment
--- NOTE | 2018-12-26 14:46 | CHAPLAIN ---
Type of Pastoral Visit _x__ Initial Visit ___ Follow-up Visit ___ On-call Visit ___ General Patient Visit ___ Spiritual Assessment ___ Family Conference ___ Bereavement ___ Rapid Response ___ Code Blue ___ Other (describe below) Pastoral Care Referral From _x__ Patient ___ Family ___ Nurse ___ Physician ___ General Internist ___ Aviation Safety Equipment Technician ___ Other (describe below) Sacrament/Intervention _x__ Active listening ___ Anointing ___ Latter Day ___ Bereavement ___ Communion ___ Eula exploration ___ ___ Life review ___ Prayer ___ Reconciliation ___ Sacrament of Sick ___ Supportive presence ___ Wedding ___ Other (describe below) Pastoral Comments
[2018-12-26] MEDS: TICAGRELOR 90 MG TABLET PO (21:02)
[2018-12-26] MEDS: Atorvastatin Calcium 80 MG Tablet PO (21:03)
[2018-12-26] MEDS: Sertraline 50 MG Tablet 25 MG PO (21:03)
[2018-12-27] VITALS (27 sets, daily range): BP systolic 87–139; BP diastolic 52–94; PULSE 72–155; RESP 13–24; TEMP 36.6–36.9; O2SAT 83–97
--- NOTE | 2018-12-27 00:03 | CPS ---
pt refused to wear bipap tonight
[2018-12-27] MEDS: 0.9% NaCl Peripheral Flush Adult/Peds IV ×3 (05:01→19:03)
[2018-12-27 05:13] LABS: Hematocrit 43.6 % (37-47); Hemoglobin 14.4 g/dL (12.0-15.0); Mean Corpuscular Hgb 28.2 pg (27.0-32.0); Mean Corpuscular Volume 85.5 fL (81-99); Mean Platelet Vol. 10.1 fl (6.2-12.0); Platelet Count 238 K/mm3 (150-450); RBC Distribution Width CV 13.4 % (11.6-14.6); White Blood Count 19.8 K/mm3 (4.4-11.0)
[2018-12-27 05:27] LABS: ALB/GLOB Ratio 0.8 RATIO (0.9-2.4); AST(SGOT) 24 U/L (15-37); Alanine Aminotransfer ALT/SGPT 16 U/L (13-56); Alkaline Phosphatase 52 U/L (45-117); Anion Gap 6 (5-15); BUN 17 mg/dL (7-18); Calcium,Total 8.9 mg/dL (8.5-10.1); Chloride 106 mmol/L (98-107); Creatinine, Serum 0.59 mg/dL (0.55-1.02); EST Glomerular Filtration Rate 110 mL/min (>60); Est Glom Filt Rate - Afr Amer 133 mL/min (>60); Estimated Creatinine Clearance 78.19 ml/min; Globulin 3.6 g/dL (2.2-4.2); Glucose 129 mg/dL (74-106); Potassium 3.9 mmol/L (3.5-5.1); Protein, Total 6.6 g/dL (6.4-8.2); Sodium Level 141 mmol/L (136-145)
[2018-12-27] MEDS: Ipratropium/Albuterol Sulfate 3 ML AMPUL.NEB INHALATION ×3 (07:10→14:41)
--- NOTE | 2018-12-27 07:35 | PN.CARD_ITS ---
Subjectve: Patient seen and evaluated. Doing well with no chest pain no groin issues. Appears to be wheezing a little bit. Objective: Vital Signs Temp Pulse Resp BP Pulse Ox 98.0 F 101 H 20 H 118/75 91 12/27/18 04:00 12/27/18 07:11 12/27/18 07:11 12/27/18 06:00 12/27/18 07:11 Oxygen Flow Rate (L/min) 2 Oxygen Delivery Method Room Air Weight: 162 lb 4.163 oz Body Mass Index (BMI) 29.3 Intake and Output for Last 24 Hours 12/25/18 12/26/18 12/27/18 23:59 23:59 23:59 Intake Total 1882 / 2362 600 / 600 Output Total 975 / 1250 600 / 600 Balance 907 / 1112 0 / 0 General: Awake, Alert, Oriented x 3 HEENT: PERRL, EOMI, Sclera Non Icteric Neck: Supple, Good ROM, No Lymph Node Enlargement Lungs: Inspiratory Wheezes - Xavi Cardiovascular: Regular Rhythm, Normal S1, Normal S2, No Murmurs, No Rubs, No Gallops Vascular: No Carotid Bruits, Normal Femoral Pulses, Normal Radial Pulses, Normal Dorsalis Pedal Pulse, Normal Posterior Tibial Pulses Abdomen: Bowel Sounds Present, Soft, Non Tender, No HSM, No Organomegaly Extremities: No Cyanosis, No Clubbing, No edema Musculoskeletal: No Erythema Lymphatic: No Lymph Node Enlargement Neurological: No Focal Motor or Sensory Deficit Psych/Mental Status: Appropriate 12/26/18 01:57: Hemoglobin A1c 5.8 12/27/18 05:00: WBC 19.8 H, RBC 5.10, Hgb 14.4, Hct 43.6, MCV 85.5, MCH 28.2, MCHC 33.0, Plt Count 238, MPV 10.1 12/27/18 05:00: Sodium 141, Potassium 3.9, Chloride 106, Carbon Dioxide 29.0, Anion Gap 6, BUN 17, Creatinine 0.59, Est GFR (MDRD) Af Amer 133, Est GFR (MDRD) Non-Af 110, BUN/Creatinine Ratio 29.0 H, Glucose 129 H, Calcium 8.9, Total Bilirubin 0.40 Rhythm: EKG: ECHO: Stress Test: Cardiac Cath: PCI: CT Surgery: Holter monitor: EPS: PPM: CXR: Chest CT Scan: Medical Necessity - Tobacco Use Smoking Status: Former smoker Assessment/Plan 1. Non-ST elevation myocardial infarction * Patient presents with somewhat atypical symptoms and is noted to have a non-ST elevation myocardial infarction with no EKG changes. * Cardiac catheterization performed demonstrated mild disease noted in the left anterior descending artery, and circumflex artery, and high-grade stenosis in the right coronary artery for which she underwent angioplasty and stenting. She is done well overnight. * Continue with aspirin * Loaded with clopidogrel * Continue beta-justin. * Stable for discharge later today. * Due to patient's mild wheezing I would recommend that she would benefit from a pulmonary consultation. 2. Hyperlipidemia * Patient actually has an acceptable lipid profile and we will continue with the current therapy. * Continue statin * 3. Hypertension * Patient's blood pressure appears to be under good control we will continue current medical therapy. * * Thank you for allowing me to participate in the care of your patient. Please don't hesitate to call if any issues arise
[2018-12-27 07:56] LABS: ACT Activated Clotting Time 241 sec (74-137)
[2018-12-27] MEDS: Carvedilol 3.125 MG TABLET PO (08:00)
[2018-12-27] MEDS: Losartan Potassium 25 MG Tablet 12.5 MG PO (08:01)
[2018-12-27] MEDS: TICAGRELOR 90 MG TABLET PO ×2 (08:01→22:14)
[2018-12-27] MEDS: Aspirin E.C. 81 MG Tablet PO (08:01)
--- NOTE | 2018-12-27 08:12 | PN_ITS ---
Patient Problems: Active and Suspected Problems (Last Updated 12/26/18 @ 14:50 by Edilma Barnett) Non-ST elevation (NSTEMI) myocardial infarction (Acute 12/26/18) Unstable angina (Acute) Hypoxemia (Acute) Subjective: Doing well, chest pain is completely resolved. She does have some wheezing today Vitals/I&O's: Vital Signs Temp Pulse Resp BP Pulse Ox 98.0 F 101 H 20 H 118/75 91 12/27/18 04:00 12/27/18 07:11 12/27/18 07:11 12/27/18 06:00 12/27/18 07:11 Oxygen Flow Rate (L/min) 2 Oxygen Delivery Method Room Air Weight: 162 lb 4.163 oz Body Mass Index (BMI) 29.3 Intake and Output for Last 24 Hours 12/25/18 12/26/18 12/27/18 23:59 23:59 23:59 Intake Total 1882 / 2362 600 / 600 Output Total 975 / 1250 600 / 600 Balance 907 / 1112 0 / 0 General: Alert, Oriented x3, Cooperative, No apparent distress HEENT: Atraumatic, PERRLA, EOMI, Normocephalic Oral: Moist Mucosa Neck: Supple, No JVD Lungs: Clear to auscultation, Normal air movement, No rhonchi, No rales, Wheezes and coarse breath sounds bilaterally Cardiovascular: Regular rate, Regular Rhythm, Normal S1, Normal S2, No murmurs Abdomen: Soft, Non Tender, Non-Distended, No Hepato-splenomegaly Extremities: No edema, Capillary Refill Less than 3 Seconds Skin: No rashes, No breakdown, Incision - Dressing over the cath site is intact Neurological: Neuro grossly intact, Sensory exam intact to light touch and pain Psych/Mental Status: Normal Affect, Appropriate Laboratory Results 12/26/18 09:17: Activated Clotting Time 241 H 12/27/18 05:00: WBC 19.8 H, RBC 5.10, Hgb 14.4, Hct 43.6, MCV 85.5, MCH 28.2, MCHC 33.0, RDW Std Deviation 42.0, RDW Coeff of Ruy 13.4, Plt Count 238, MPV 10.1 12/27/18 05:00: Sodium 141, Potassium 3.9, Chloride 106, Carbon Dioxide 29.0, Anion Gap 6, BUN 17, Creatinine 0.59, Estim Creat Clear Calc 78.19, Est GFR (MDRD) Af Amer 133, Est GFR (MDRD) Non-Af 110, BUN/Creatinine Ratio 29.0 H, Glucose 129 H, Calcium 8.9, Total Bilirubin 0.40, AST 24, ALT 16, Alkaline Phosphatase 52, Total Protein 6.6, Albumin 3.0 L, Globulin 3.6, Albumin/Globulin Ratio 0.8 L Current Medications Acetaminophen (Tylenol) 650 mg PO Q6H PRN PRN PRN Reason: PAIN Last Admin: 12/26/18 02:43 Dose: 650 mg Documented by: Albuterol/Ipratropium (Duoneb) 3 ml INHALATION Q4H.RT [facility] Last Admin: 12/27/18 07:10 Dose: 3 ml Documented by: Aspirin (Ecotrin) 81 mg PO DAILY@0800 [facility] Last Admin: 12/27/18 08:01 Dose: 81 mg Documented by: Atorvastatin Calcium (Lipitor) 80 mg PO QHS [facility] Last Admin: 12/26/18 21:03 Dose: 80 mg Documented by: Atropine Sulfate () 0.5 mg IV UD PRN PRN Reason: HR <50 bpm Carvedilol (Coreg) 3.125 mg PO BID [facility] Last Admin: 12/27/18 08:00 Dose: 3.125 mg Documented by: Dextrose (D50w Syringe) 0 gm IV X1 PRN; Protocol PRN Reason: Hypoglycemia Diazepam (Valium) 5 mg PO Q6H PRN PRN PRN Reason: BACK SPASMS/ANXIETY Furosemide (Lasix) 20 mg IV X1 ONE Stop: 12/27/18 07:54 Glucagon () 1 mg IM .X1 PRN PRN Reason: Hypoglycemia Heparin Sodium (Beef Lung) (Heparin 500 Unit/5 Ml (100/Ml)) 500 unit IV UD PRN PRN Reason: HEPARIN FLUSH Levofloxacin (Levaquin Iv) 750 mg in 150 mls @ 100 mls/hr IV Q48 [facility] Last Admin: 12/26/18 01:51 Dose: 100 mls/hr Documented by: Sodium Chloride () 1,000 mls @ 0 mls/hr IV .Q0M [facility] Labetalol HCl (Trandate) 5 mg IV X1 PRN PRN Reason: SBP > 160 PRIOR TO SHEATH PULL Losartan Potassium (Cozaar) 12.5 mg PO DAILY [facility] Last Admin: 12/27/18 08:01 Dose: 12.5 mg Documented by: Methylprednisolone (Solu-Medrol) 40 mg IV Q8 [facility] Last Admin: 12/27/18 04:59 Dose: 40 mg Documented by: Morphine Sulfate () 2 mg IV Q4H PRN PRN PRN Reason: Mild back pain (0-2/10) Nicotine (Nicoderm Cq (Pbkc)) 14 mg TRANSDERM. DAILY [facility] Nitroglycerin (Nitrostat) 0.4 mg SUBLINGUAL Q5M PRN PRN Reason: CARDIAC/CHEST PAIN Nitroglycerin (Nitrostat) 0.4 mg SUBLINGUAL Q5M PRN PRN Reason: CARDIAC/CHEST PAIN Ondansetron HCl (Zofran) 4 mg IV Q8H PRN PRN PRN Reason: NAUSEA/VOMITING Sertraline HCl (Zoloft) 25 mg PO QHS [facility] Last Admin: 12/26/18 21:03 Dose: 25 mg Documented by: Sodium Chloride () 10 - 40 ml IV UD PRN PRN Reason: SALINE FLUSH Last Admin: 12/27/18 05:01 Dose: 40 ml Documented by: Sodium Chloride () 500 ml IV BOLUS PRN PRN Reason: VASO-VAGAL PROTOCOL Ticagrelor (Brilinta) 90 mg PO BID [facility] Last Admin: 12/27/18 08:01 Dose: 90 mg Documented by: Medical Necessity - Tobacco Use Smoking Status: Former smoker Assessment/Plan All Active Problems (Last Updated 12/26/18 @ 14:50 by Edilma Barnett) History of coronary artery stent placement (Resolved 12/26/18) Non-ST elevation (NSTEMI) myocardial infarction (Acute 12/26/18) Unstable angina (Acute) Hypoxemia (Acute) 1. Acute hypoxic respiratory failure secondary to COPD exacerbation and an NSTEMI/HTN/HLD -Troponin peaked at 1.420 -Cardiac cath today with a stent in the RCA -Continue with aspirin and Brilinta as well as statin -Echo with an EF of 50% and mild segmental systolic dysfunction with stage I diastolic dysfunction -Appreciate cardiology assistance -Continue with nebulizers and Solu-Medrol 3 times daily, consult pulmonology to set up outpatient evaluation -She is on Levaquin q48 hr secondary to creatinine clearance because of an elevated WBC on admission -Leukocytosis secondary to steroids, however chest x-ray was negative for any consolidation and she has been afebrile -Oxygen requirements has been stable at 2 L, she does not wear oxygen at home. We will try to discontinue her oxygen at this time and see how she tolerates. -Continue with Coreg and losartan 2. Anxiety/depression -Stable -Continue with Zoloft 3. Tobacco abuse -Advised continued cessation -States she quit smoking 2 weeks ago DVT: SCDs Code Visit Inpatient E&M: 97681 Subs Hosp L2
[2018-12-27] MEDS: Furosemide 20 MG/2 ML VIAL IV (08:35)
[2018-12-27] MEDS: levoFLOXacin IV 750 MG/150 ML BAG 100 MG IV (08:36)
--- NOTE | 2018-12-27 09:11 | CON.PCM_ITS ---
Problem List (1) Atherosclerosis of coronary artery bypass graft of [place] heart with angina pectoris Status: Chronic (2) History of coronary artery stent placement Status: Resolved Comment: PCI-ADE mid RCA with a 2.25 x 16 Promus Synergy Stent 12/26/18 (3) Non-ST elevation (NSTEMI) myocardial infarction Status: Acute (4) Essential (primary) hypertension Status: Chronic (5) COPD (chronic obstructive pulmonary disease) Status: Chronic (6) Anxiety Status: Chronic (7) Unstable angina Status: Acute (8) COPD with exacerbation Status: Chronic (9) Hypoxemia Status: Acute Reason for Consult Date of Consultation: 12/27/18 Reason for Consultation: COPD exacerbation History of Present Illness: The patient is a 63 year old F, with past medical history listed below, who presented [facility] on 12/25/2018 secondary to chest pain and progressive shortness of breath. Patient reported a 3-day history of progressive shortness of breath and a cough productive of green sputum. Patient denied any hemoptysis, but stated she started to develop chest pain. Patient did start to feel clammy and sweaty and attempted using her albuterol without any improvement. In the ER, EKG was unchanged compared to previous. Chest x-ray was relatively unremarkable. Patient was initiated on Solu-Medrol and given breathing treatments. Subjectively, the ER thought this made her wheezing worse. Troponin was slightly elevated and there was some concern for unstable angina. Patient was given aspirin, Lovenox and nitroglycerin and admitted to the PCU for further evaluation. While on the PCU, patient was evaluated by cardiology. Patient ended up having a heart catheterization resulting in a PTCA/ADE of the mid RCA secondary to an 85% stenosis. Patient was in the intensive care unit after the procedure and continued to have wheezing, so a pulmonary consult was obtained. Patient has required supplemental oxygen throughout her hospitalization at low doses. Patient reports an extensive history of smoking, but states she is never had a pulmonary function test. 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 Patient is on Breo at home, but was on Dulera in the past. Patient is unclear if she has a history of asthma, but has noted a several year decline. Patient does have a cough productive on a daily basis while at baseline. Patient does report that this recently changed color and increased in volume. Patient has received multiple doses of steroid bursts in the past. Patient denies any recent fever, chills, nausea or vomiting. No cyanosis has been reported, but patient has noted significant decrease in exercise tolerance. Patient denies any dysuria. Patient does feel that she is improved on steroid therapy, but states I am on these a lot. Patient does not routinely check her oxygen saturations at home and is not had a walking oximetry. Review of systems otherwise negative x10 systems. Past Medical History Past Medical History (Chronic Problems): Chronic Problems (Last Updated 12/26/18 @ 14:50 by Edilma Barnett) Atherosclerosis of coronary artery bypass graft of [place] heart with angina pectoris (Chronic) Essential (primary) hypertension (Chronic) COPD (chronic obstructive pulmonary disease) (Chronic) Anxiety (Chronic) COPD with exacerbation (Chronic) Medical History: Medical History (Last Updated 12/26/18 @ 14:50 by Edilma Barnett) Atherosclerosis of coronary artery bypass graft of [place] heart with angina pectoris (Chronic) I25.709 Non-ST elevation (NSTEMI) myocardial infarction (Acute) Onset Date: 12/26/18 I21.4 Essential (primary) hypertension (Chronic) I10 COPD (chronic obstructive pulmonary disease) (Chronic) J44.9 Anxiety (Chronic) F41.9 Allergies diphenhydramine [From Benadryl] Allergy (Verified 05/20/18 13:24) Unknown Penicillins Allergy (Verified 05/20/18 13:24) Swelling Home Medications: Ambulatory Orders Medication Instructions Recorded Albuterol Inhaler [Ventolin Hfa 1 - 2 puff INHALATION Q4H PRN PRN 05/20/18 (SP)] Metoprolol Tartrate 50 mg PO BID 05/20/18 Sertraline HCl 25 mg PO DAILY 05/20/18 Budesonide/Formoterol 160/4.5 1 puff INHALATION BID 12/26/18 [Symbicort 160/4.5 Mcg Inhaler (SP)] Lisinopril/Hydrochlorothiazide 1 ea PO DAILY 12/26/18 [Lisinopril-Hctz 10-12.5 mg Tab] Surgical History: Surgical History (Last Updated 12/26/18 @ 14:50 by Edilma Barnett) History of coronary artery stent placement (Resolved) Onset Date: 12/26/18 Z95.5 PCI-ADE mid RCA with a 2.25 x 16 Promus Synergy Stent 12/26/18 Surgical History: hysterectomy Psychiatric History: Anxiety 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 Echocardiogram shows an EF of 50% with mild segmental systolic dysfunction and stage I diastolic dysfunction. No significant valvular abnormalities were noted. No pulmonary function tests or sleep study is available for review. - Physical Exam General: Alert, Oriented x3, Cooperative, No apparent distress, Well developed, Well nourished, - - Appears older than stated age. No conversational dyspnea. HEENT: Atraumatic, PERRLA, EOMI, Normocephalic, - - Slight scleral injection without icterus Oral: Moist Mucosa, No Gingival or Mucosal Lesions/ Ulcerations, - - Fair dentition Neck: Supple, No JVD, No Nodes, Trachea Midline Lungs: No rhonchi, No rales, Diminished, Wheezes, - - Symmetric expansion. No dullness to percussion. Cardiovascular: Regular rate, Regular Rhythm, Normal S1, Normal S2, No murmurs, No rub noted, No Gallop Abdomen: Bowel Sounds Present, Soft, Non Tender, Non-Distended, Obese Extremities: No cyanosis, No edema, Clubbing - Early Skin: No rashes, No breakdown Musculoskeletal: No Tenderness to Palpation of Joints or Extremities Lymphatic: No Cervical, Supraclavicular, or Inguinal Adenopathy Neurological: Cranial nerves II-XII grossly intact, Neuro grossly intact, Motor Exam 5/5 strength throughout Psych/Mental Status: Alert and oriented to time, place, person, mood and affect Vital Signs Temp Pulse Resp BP Pulse Ox 36.7 C 123 H 22 H 110/79 83 12/27/18 04:00 12/27/18 08:00 12/27/18 08:00 12/27/18 08:00 12/27/18 08:00 Oxygen Flow Rate (L/min) 2 Oxygen Delivery Method Room Air Weight: 73.6 kg Body Mass Index (BMI) 29.3 Intake and Output for Last 24 Hours 12/25/18 12/26/18 12/27/18 23:59 23:59 23:59 Intake Total 1882 / 2362 600 / 600 Output Total 975 / 1250 600 / 600 Balance 907 / 1112 0 / 0 Laboratory Tests Past 24 Hrs 12/26/18 12/27/18 12/27/18 09:17 05:00 05:00 WBC 19.8 H RBC 5.10 Hgb 14.4 Hct 43.6 MCV 85.5 MCH 28.2 MCHC 33.0 RDW Std Deviation 42.0 RDW Coeff of Ruy 13.4 Plt Count 238 MPV 10.1 Activated Clotting Time 241 H Sodium 141 Potassium 3.9 Chloride 106 Carbon Dioxide 29.0 Anion Gap 6 BUN 17 Creatinine 0.59 Estim Creat Clear Calc 78.19 Est GFR (MDRD) Af Amer 133 Est GFR (MDRD) Non-Af 110 BUN/Creatinine Ratio 29.0 H Glucose 129 H Calcium 8.9 Total Bilirubin 0.40 AST 24 ALT 16 Alkaline Phosphatase 52 Total Protein 6.6 Albumin 3.0 L Globulin 3.6 Albumin/Globulin Ratio 0.8 L Clinical Impression(s) from Imaging Studies Chest X-Ray 12/25/18 22:37 IMPRESSION: No acute cardiopulmonary process. Electronically Signed: Ling Mendez MD at 23:15 EDT Tel , Service support , Assessment/Plan All Active Problems (Last Updated 12/26/18 @ 14:50 by Edilma Barnett) History of coronary artery stent placement (Resolved 12/26/18) Non-ST elevation (NSTEMI) myocardial infarction (Acute 12/26/18) Unstable angina (Acute) Hypoxemia (Acute) RECOMMENDATIONS: 1. Complete 7 days of Levaquin therapy 2. Okay to transition to prednisone therapy and wean over the next 12 to 14 days 3. Walking oximetry prior to discharge. Probable need for supplemental oxyg en, at least on ambulation 4. Outpatient complete PFT 5. Encourage continued smoking cessation IMPRESSIONS: 1. Acute hypoxic respiratory insufficiency secondary to a COPD exacerbation Patient noted to have significant polycythemia on presentation. Clinical suspicion for some element of volume depletion, but patient also is reporting significant decline in exercise tolerance. Clinical suspicion for desaturation with ambulation leading to exercise limitations. Patient would benefit from a walking oximetry and probable discharge on supplemental oxygen. Unclear if this is going to be a long-term requirement. Patient can be transition to prednisone therapy and wean over the next 12 to 14 days. Levaquin can be transitioned to p.o. and finish a 7-day course. Patient can follow-up in our office in 2 weeks for complete pulmonary function test for quantification and clarification of lung function. Unclear if patient would truly benefit from longer hospitalization as she appears to be responding well to current therapy. 2. Non-ST elevation AR secondary to RCA lesion status post stent Clear related to patient's smoking. RCA lesion would be significant given patient's increased pulmonary vascular issues associated with probable advanced COPD. Defer to cardiology, but patient appears to be responding appropriately. No signs or symptoms of complications from the procedure at this time. Patient has been approached by cardiac rehab. 3. Hypertension/hyperlipidemia/anxiety/depression/tobacco abuse Complicates care, management, recovery and prognosis. Patient does not believe that she needs nicotine patches to continue with smoking cessation. Did stress to the patient the importance of avoiding open flames the presence of oxygen. Patient voiced understanding. Okay to continue baseline medications from my perspective. Code Visit Inpatient E&M: 69961 Init Hosp L3
--- NOTE | 2018-12-27 10:00 | EKG12_ITS ---
Test Reason : ADM EKG Blood Pressure : / mmHG Vent. Rate : 081 BPM Atrial Rate : 081 BPM P-R Int : 180 ms QRS Dur : 068 ms QT Int : 386 ms P-R-T Axes : 082 090 076 degrees QTc Int : 448 ms Normal sinus rhythm Rightward axis Low voltage QRS Borderline ECG When compared with ECG of 20-MAY-2018 13:25, No significant change was found Confirmed by JOSAFAT RODAS ([id number]), subeditor MOISE AGUIRRE ([id number]) on 01/02/2019 2:41:32 PM Referred By: Iram Mcdowell Confirmed By:JOSAFAT RODAS
--- NOTE | 2018-12-27 10:12 | CASEMGMT ---
Addendum entered by Yazan Cleary 12/27/18 10:50: Referral for Home oxygen faxed to [facility]. Call to Yasemin @ [facility] to notify of referral. Per Yasemin, tank will be delivered later today. Stefania MANNING Original Note: RN CM Assessment Presentation: COPD exacerbation, NSTEMI, stent to RCA Intro role of CM and purpose of RN CM assessment to patient in room. Pt is awake, alert and able to participate in assessment. Demographics, PCP and Pharmacy verified. Pt lives in own home with her and son. States her also has health problems, but son is home (not working) and does assist with cooking and home care. -Oxygen testing being completed for Home O2. List of [facility] providers list printed from [facility] Com plan website. List given to pt and reviewed. Pt prefers [facility] for first choice. Referral will be sent when all testing is completed. PCP: Kulwant Mosquera. Pt does not wish for list of PCP's, prefers to go to clinic. Specialists: Dr Heart. Pt will f/u on dc for pulmonary testing. Preferred Pharmacy: [facility] Insurance: [facility] Community Plan Prescription Benefit: yes LNOK: Gus Romano, Living Arrangements: One story home, 2 steps into home. Pt states her son assists with ADL's if needed. Generally independent once dressed. Does cooking and some home care. No further needs identified at this time. Transportation: drives (son does not have license) DME: no ambulatory DME used, however has walker at home HHC: none Patient DC goals: HOME DC PLAN: HOME with oxygen set up from [facility]. Stefania MANNING
[2018-12-27] MEDS: Metoprolol Tartrate 5 MG/5 ML Vial IV (19:03)
[2018-12-27] MEDS: Carvedilol 6.25 MG Tablet PO (22:14)
[2018-12-27] MEDS: Atorvastatin Calcium 80 MG Tablet PO (22:14)
[2018-12-27] MEDS: Sertraline 50 MG Tablet 25 MG PO (22:14)
[2018-12-28] VITALS (30 sets, daily range): BP systolic 87–153; BP diastolic 53–94; PULSE 95–153; RESP 12–32; TEMP 36.6–37.1; O2SAT 82–98
[2018-12-28] MEDS: Ipratropium/Albuterol Sulfate 3 ML AMPUL.NEB INHALATION ×6 (02:07→22:49)
[2018-12-28] MEDS: diazePAM 5 MG Tablet PO ×3 (02:09→23:32)
--- NOTE | 2018-12-28 02:22 | RAD_ITS ---
STUDY: X-RAY CHEST REASON FOR EXAM: Female, 63 years old. Dyspnea TECHNIQUE: Single AP portable view of the chest. COMPARISON: 12/25/2018 FINDINGS: Ill-defined groundglass opacity seen in the right lung base is new since the previous study may represent early pneumonia. Hyperinflation and emphysematous changes are noted in both lungs more prominent in the upper lobes. There is no demonstrated pleural abnormality. Normal size heart. Normal mediastinum and rafia. Normal visualized pulmonary arteries. There is atherosclerotic calcification of the aortic arch with tortuosity. Normal visualized thoracic spine. Normal visualized ribs, clavicles, and shoulders. There is no demonstrated abnormality of the visualized soft tissue structures of the upper abdomen. RAD/Chest 1 View (Portable) IMPRESSION: Possible early pneumonia in the right lower lobe. Electronically Signed: Yarelis Contreras, at 4:08 EDT Tel , Service support ,
[2018-12-28] MEDS: MethylPREDNISolone 125 MG/2 ML Vial IV (02:50)
[2018-12-28] MEDS: 0.9% NaCl Peripheral Flush Adult/Peds IV ×2 (02:51→10:11)
[2018-12-28 03:15] LABS: Allen Test POS; Base Excess 3 mmol/L (-2 to +2); Bicarbonate 29.8 mmol/L (22-26); Blood Gas Specimen Type ART; EPAP 5; FI02 50; IPAP 10; PO2 202 mmHG (75-100); RR 12; SITE L Radial; SO2 100 % (95-99); Time Given 300; Total Carbon Dioxide 32 mmol/L; pCO2 65.1 mmHg (35-45); pH 7.27 (7.35-7.45)
--- NOTE | 2018-12-28 03:17 | CPS ---
abg results of ph 7.26, po2 202, pco2 65, hco3 29.[address] Faulkner-bipap settings verified as 10/5 40%
[2018-12-28 06:13] LABS: M R Staph aureus DNA By PCR Negative (Negative); Probe Check PASS; Specimen Processing Control PASS
[2018-12-28] MEDS: Aspirin E.C. 81 MG Tablet PO (08:15)
[2018-12-28] MEDS: TICAGRELOR 90 MG TABLET PO ×2 (08:15→22:13)
[2018-12-28] MEDS: Losartan Potassium 25 MG Tablet 12.5 MG PO (08:16)
[2018-12-28] MEDS: Carvedilol 6.25 MG Tablet PO (08:18)
--- NOTE | 2018-12-28 08:50 | PN.CARD_ITS ---
Subjectve: Patient seen and evaluated. Noted to be mildly anxious. Also noted to be short of breath Objective: Vital Signs Temp Pulse Resp BP Pulse Ox 98.7 F 124 H 24 H 130/90 H 93 12/28/18 08:06 12/28/18 08:06 12/28/18 08:06 12/28/18 08:06 12/28/18 08:06 Oxygen Flow Rate (L/min) [ 2 AMBULATION with Oxygen] Oxygen Flow Rate (L/min) [ 0 AMBULATING on Room Air] Oxygen Flow Rate (L/min) [At 0 REST on Room Air] Oxygen Flow Rate (L/min) 3.5 Oxygen Delivery Method Nasal Cannula Weight: 161 lb 13.109 oz Body Mass Index (BMI) 29.3 Intake and Output for Last 24 Hours 12/26/18 12/27/18 12/28/18 23:59 23:59 23:59 Intake Total 1882 / 2362 1730 / 1730 60 / 60 Output Total 975 / 1250 800 / 800 Balance 907 / 1112 930 / 930 60 / 60 General: Awake, Alert, Oriented x 3 HEENT: PERRL, EOMI, Sclera Non Icteric Neck: Supple, Good ROM, No Lymph Node Enlargement Lungs: Expiratory Wheezes-Xavi Cardiovascular: Regular Rhythm, Normal S1, Normal S2, No Murmurs, No Rubs, No Gallops 12/28/18 02:35: Troponin I 1.400 H* 12/28/18 03:08: pH 7.27 L, Bicarbonate Actual 29.8 H, POC Total CO2 32, Base Excess 3 H, O2 Saturation 100 H, ABG pCO2 65.1 H, ABG pO2 202 H, Saeid Test POS 12/28/18 05:14: Troponin I 1.420 H* Rhythm: EKG: ECHO: Stress Test: Cardiac Cath: PCI: CT Surgery: Holter monitor: EPS: PPM: CXR: Chest CT Scan: Medical Necessity - Tobacco Use Smoking Status: Former smoker Assessment/Plan 1. Non-ST elevation myocardial infarction * Patient presents with somewhat atypical symptoms and is noted to have a non-ST elevation myocardial infarction with no EKG changes. * Cardiac catheterization performed demonstrated mild disease noted in the left anterior descending artery, and circumflex artery, and high-grade stenosis in the right coronary artery for which she underwent angioplasty and stenting. * Continue with aspirin * Currently on Brilinta * Continue beta-justin. * * Due to patient's mild wheezing I would recommend that she would benefit from a pulmonary consultation. 2. Hyperlipidemia * Patient actually has an acceptable lipid profile and we will continue with the current therapy. * Continue statin * 3. Hypertension * Patient's blood pressure appears to be under good control we will continue current medical therapy. * 4. Shortness of breath * She noted to be short of breath. Would recommend that we obtain an natruretic peptide level. Some of this may be secondary to diastolic dysfunction, fluid overload, and obstructive lung disease. Depending on the levels of the above further recommendations will be made. She may need to smaller doses of Lasix. I do not think that this is secondary to the change in the beta-justin. or the Brilinta. * Thank you for allowing me to participate in the care of your patient. Please don't hesitate to call if any issues arise
[2018-12-28 08:59] LABS: Anion Gap 9 (5-15); BUN 24 mg/dL (7-18); Chloride 106 mmol/L (98-107); Creatinine, Serum 0.62 mg/dL (0.55-1.02); EST Glomerular Filtration Rate 104 mL/min (>60); Est Glom Filt Rate - Afr Amer 126 mL/min (>60); Estimated Creatinine Clearance 74.41 ml/min; Glucose 112 mg/dL (74-106); Potassium 4.2 mmol/L (3.5-5.1); Sodium Level 141 mmol/L (136-145)
[2018-12-28 09:28] LABS: BNP,B-Type NATRIURETIC PEPTIDE 464.1 pg/mL (0-100)
--- NOTE | 2018-12-28 09:44 | PN_ITS ---
Patient Problems: Active and Suspected Problems (Last Updated 12/26/18 @ 14:50 by Edilma Barnett) Non-ST elevation (NSTEMI) myocardial infarction (Acute 12/26/18) Unstable angina (Acute) Hypoxemia (Acute) Subjective: Patient did okay yesterday with ambulation, but had some elevated heart rates. Patient was transferred to the PCU and overnight developed a reflux event that led to significant tachycardia. Patient did require BiPAP rescue. Patient reports subjective worsening in overall condition. Patient denies any palpit ations at this time. Objective: Telemetry was reviewed. Patient is having sinus tachycardia. - Physical Exam General: Alert, Oriented x3, Cooperative, - - Anxious. Appears older than stated age. HEENT: Atraumatic, PERRLA, EOMI, Normocephalic, - - No scleral icterus or injection noted. Oral: Moist Mucosa, No Gingival or Mucosal Lesions/ Ulcerations Neck: Supple, No JVD, No Nodes, Trachea Midline Lungs: No rhonchi, No rales, Diminished, Wheezes Cardiovascular: Normal S1, Normal S2, No murmurs, No rub noted, No Gallop, Tachycardic Abdomen: Bowel Sounds Present, Soft, Non Tender, Non-Distended Extremities: No clubbing, No cyanosis, Edema - Trace lower extremity Skin: No rashes, No breakdown Musculoskeletal: No Tenderness to Palpation of Joints or Extremities Lymphatic: No Cervical, Supraclavicular, or Inguinal Adenopathy Neurological: Cranial nerves II-XII grossly intact, Neuro grossly intact, Motor Exam 5/5 strength throughout Psych/Mental Status: Alert and oriented to time, place, person, mood and affect Vital Signs Temp Pulse Resp BP Pulse Ox 37.1 C 124 H 24 H 130/90 H 93 12/28/18 08:06 12/28/18 08:06 12/28/18 08:06 12/28/18 08:06 12/28/18 08:06 Oxygen Flow Rate (L/min) [ 2 AMBULATION with Oxygen] Oxygen Flow Rate (L/min) [ 0 AMBULATING on Room Air] Oxygen Flow Rate (L/min) [At 0 REST on Room Air] Oxygen Flow Rate (L/min) 3.5 Oxygen Delivery Method Nasal Cannula Weight: 73.4 kg Body Mass Index (BMI) 29.3 Intake and Output for Last 24 Hours 12/26/18 12/27/18 12/28/18 23:59 23:59 23:59 Intake Total 1882 / 2362 1730 / 1730 60 / 60 Output Total 975 / 1250 800 / 800 Balance 907 / 1112 930 / 930 60 / 60 Laboratory Tests Past 24 Hrs 12/28/18 12/28/18 12/28/18 02:35 03:08 04:53 Specimen Type ART Sample Site L Radial pH 7.27 L Bicarbonate Actual 29.8 H POC Total CO2 32 Base Excess 3 H O2 Saturation 100 H O2 % 50 ABG pCO2 65.1 H ABG pO2 202 H Saeid Test POS Respiration Rate 12 O2 Delivery Device Bi / C PAP EPAP 5 IPAP 10 Blood Gas Notified Whom HOSP Blood Gas Notified Time 300 Sodium Potassium Chloride Carbon Dioxide Anion Gap BUN Creatinine Estim Creat Clear Calc Est GFR (MDRD) Af Amer Est GFR (MDRD) Non-Af BUN/Creatinine Ratio Glucose Calcium Troponin I 1.400 H* B-Natriuretic Peptide MRSA (PCR) Negative 12/28/18 12/28/18 12/28/18 05:14 05:14 05:14 Specimen Type Sample Site pH Bicarbonate Actual POC Total CO2 Base Excess O2 Saturation O2 % ABG pCO2 ABG pO2 Saeid Test Respiration Rate O2 Delivery Device EPAP IPAP Blood Gas Notified Whom Blood Gas Notified Time Sodium 141 Potassium 4.2 Chloride 106 Carbon Dioxide 26.0 Anion Gap 9 BUN 24 H Creatinine 0.62 Estim Creat Clear Calc 74.41 Est GFR (MDRD) Af Amer 126 Est GFR (MDRD) Non-Af 104 BUN/Creatinine Ratio 39.0 H Glucose 112 H Calcium 9.0 Troponin I 1.420 H* B-Natriuretic Peptide 464.1 H MRSA (PCR) 12/28/18 08:35 Specimen Type Sample Site pH Bicarbonate Actual POC Total CO2 Base Excess O2 Saturation O2 % ABG pCO2 ABG pO2 Saeid Test Respiration Rate O2 Delivery Device EPAP IPAP Blood Gas Notified Whom Blood Gas Notified Time Sodium Potassium Chloride Carbon Dioxide Anion Gap BUN Creatinine Estim Creat Clear Calc Est GFR (MDRD) Af Amer Est GFR (MDRD) Non-Af BUN/Creatinine Ratio Glucose Calcium Troponin I 1.020 H* B-Natriuretic Peptide MRSA (PCR) Clinical Impression(s) from Imaging Studies Chest X-Ray 12/28/18 02:22 IMPRESSION: Possible early pneumonia in the right lower lobe. Electronically Signed: Yarelis Contreras, at 4:08 EDT Tel , Service support , Medical Necessity - Tobacco Use Smoking Status: Former smoker Assessment/Plan All Active Problems (Last Updated 12/26/18 @ 14:50 by Edilma Barnett) History of coronary artery stent placement (Resolved 12/26/18) Non-ST elevation (NSTEMI) myocardial infarction (Acute 12/26/18) Unstable angina (Acute) Hypoxemia (Acute) RECOMMENDATIONS: 1. Complete 7 days of Levaquin therapy 2. Okay to transition to prednisone therapy and wean over the next 12 to 14 days 3. Walking oximetry may need to be repeated depending on discharge timing. Probable need for supplemental oxygen, at least on ambulation 4. Outpatient complete PFT 5. Would likely benefit from rate control and possible diuretic therapy IMPRESSIONS: 1. Acute hypoxic respiratory insufficiency secondary to a COPD exacerbation Patient noted to have significant polycythemia on presentation. Clinical suspicion for some element of volume depletion, but patient also is reporting significant decline in exercise tolerance. Clinical suspicion for desaturation with ambulation leading to exercise limitations. Patient would benefit from a walking oximetry and probable discharge on supplemental oxygen. Unclear if this is going to be a long-term requirement. Patient can be transition to prednisone therapy and wean over the next 12 to 14 days. Levaquin can be transitioned to p.o. and finish a 7-day course. Patient can follow-up in our office in 2 weeks for complete pulmonary function test for quantification and clarification of lung function. Patient does have an elevated BNP and tachycardia. Patient may benefit from improved rate control and possible diuretic therapy, but defer to cardiology. 2. Non-ST elevation ID secondary to RCA lesion status post stent Clear related to patient's smoking. RCA lesion would be significant given patient's increased pulmonary vascular issues associated with probable advanced COPD. Defer to cardiology, but patient appears to be responding appropriately. No signs or symptoms of complications from the procedure at this time. Patient has been approached by cardiac rehab. 3. Hypertension/hyperlipidemia/anxiety/depression/tobacco abuse Complicates care, management, recovery and prognosis. Patient does not believe that she needs nicotine patches to continue with smoking cessation. Did stress to the patient the importance of avoiding open flames the presence of oxygen. Patient voiced understanding. Okay to continue baseline medications from my perspective. Code Visit Inpatient E&M: 72299 Subs Hosp L3
--- NOTE | 2018-12-28 09:51 | CASEMGMT ---
ESTELA SCHMITZ NOTE: To room to talk with pt. Introduced self and role of ESTELA SCHMITZ. Pt resting in bed, awake/alert/oriented. Noted portable oxygen tank has been delivered to room. Pt will be discharging home on Brilinta. Discussed Brilinta savings card with pt. Pt states someone has already given her a savings card but she thinks that it was taken home already/she is not sure where it is. Given additional Brilinta savings card and pt instructed on use of it. She voices understanding. Atif FLOREZN ESTELA SCHMITZ
--- NOTE | 2018-12-28 10:00 | EKG12_ITS ---
Test Reason : AM/SOB Blood Pressure : / mmHG Vent. Rate : 140 BPM Atrial Rate : 140 BPM P-R Int : 146 ms QRS Dur : 068 ms QT Int : 348 ms P-R-T Axes : 089 244 076 degrees QTc Int : 531 ms Sinus tachycardia Pulmonary disease pattern Inferior-posterior infarct , age undetermined Abnormal ECG When compared with ECG of 27-DEC-2018 05:31, MANUAL COMPARISON REQUIRED, DATA IS UNCONFIRMED Confirmed by JOSAFAT RODAS ([id number]), medical editor MOISE AGUIRRE ([id number]) on 01/02/2019 2:46:50 PM Referred By: Iram Mcdowell Confirmed By:JOSAFAT RODAS
[2018-12-28] MEDS: Furosemide 40 MG/4 ML Vial IV (10:11)
[2018-12-28] MEDS: levoFLOXacin IV 750 MG/150 ML BAG 100 MG IV (10:12)
--- NOTE | 2018-12-28 13:11 | PCM.PN.HOSP ---
Patient Problems: Active and Suspected Problems (Last Updated 12/26/18 @ 14:50 by Edilma Barnett) Non-ST elevation (NSTEMI) myocardial infarction (Acute 12/26/18) Unstable angina (Acute) Hypoxemia (Acute) Subjective: Became short of breath overnight after having a reflux episode she was placed on BiPAP and seems to be doing a little bit better. She is also had issues with intermittent tachycardia she was given a dose of Lopressor last night which helped but did not resolve the issue. Vitals/I&O's: Vital Signs Temp Pulse Resp BP Pulse Ox 98.4 F 110 H 19 H 87/53 L 95 12/28/18 12:21 12/28/18 12:21 12/28/18 12:21 12/28/18 12:21 12/28/18 12:21 Oxygen Flow Rate (L/min) [ 2 AMBULATION with Oxygen] Oxygen Flow Rate (L/min) [ 0 AMBULATING on Room Air] Oxygen Flow Rate (L/min) [At 0 REST on Room Air] Oxygen Flow Rate (L/min) 3.5 Oxygen Delivery Method Nasal Cannula Weight: 161 lb 13.109 oz Body Mass Index (BMI) 29.3 Intake and Output for Last 24 Hours 12/26/18 12/27/18 12/28/18 23:59 23:59 23:59 Intake Total 1882 / 2362 1730 / 1730 730 / 730 Output Total 975 / 1250 800 / 800 Balance 907 / 1112 930 / 930 730 / 730 General: Alert, Oriented x3, Cooperative, No apparent distress HEENT: Atraumatic, PERRLA, EOMI, Normocephalic Oral: Moist Mucosa Neck: Supple, No JVD Lungs: Poor air movement, No rhonchi, No rales, slight wheezes bilaterally Cardiovascular: Regular rate, Regular Rhythm, Normal S1, Normal S2, No murmurs Abdomen: Soft, Non Tender, Non-Distended, No Hepato-splenomegaly Extremities: No edema, Capillary Refill Less than 3 Seconds Skin: No rashes, No breakdown, Incision - Dressing over the cath site is intact Neurological: Neuro grossly intact, Sensory exam intact to light touch and pain Psych/Mental Status: Normal Affect, Appropriate Laboratory Results 12/28/18 02:35: Troponin I 1.400 H* 12/28/18 03:08: Specimen Type ART, Sample Site L Radial, pH 7.27 L, Bicarbonate Actual 29.8 H, POC Total CO2 32, Base Excess 3 H, O2 Saturation 100 H, O2 % 50, ABG pCO2 65.1 H, ABG pO2 202 H, Saeid Test POS, Respiration Rate 12, O2 Delivery Device Bi / C PAP, EPAP 5, IPAP 10, Blood Gas Notified Whom HOSP , Blood Gas Notified Time 300 12/28/18 04:53: MRSA (PCR) Negative 12/28/18 05:14: Troponin I 1.420 H* 12/28/18 05:14: B-Natriuretic Peptide 464.1 H 12/28/18 05:14: Sodium 141, Potassium 4.2, Chloride 106, Carbon Dioxide 26.0, Anion Gap 9, BUN 24 H, Creatinine 0.62, Estim Creat Clear Calc 74.41, Est GFR (MDRD) Af Amer 126, Est GFR (MDRD) Non-Af 104, BUN/Creatinine Ratio 39.0 H, Glucose 112 H, Calcium 9.0 12/28/18 08:35: Troponin I 1.020 H* Current Medications Acetaminophen (Tylenol) 650 mg PO Q6H PRN PRN PRN Reason: PAIN Last Admin: 12/26/18 02:43 Dose: 650 mg Documented by: Albuterol/Ipratropium (Duoneb) 3 ml INHALATION Q4H.RT [facility] Last Admin: 12/28/18 10:57 Dose: 3 ml Documented by: Aspirin (Ecotrin) 81 mg PO DAILY@0800 [facility] Last Admin: 12/28/18 08:15 Dose: 81 mg Documented by: Atorvastatin Calcium (Lipitor) 80 mg PO QHS [facility] Last Admin: 12/27/18 22:14 Dose: 80 mg Documented by: Atropine Sulfate () 0.5 mg IV UD PRN PRN Reason: HR <50 bpm Dextrose (D50w Syringe) 0 gm IV X1 PRN; Protocol PRN Reason: Hypoglycemia Diazepam (Valium) 5 mg PO Q6H PRN PRN PRN Reason: BACK SPASMS/ANXIETY Last Admin: 12/28/18 10:25 Dose: 5 mg Documented by: Glucagon () 1 mg IM .X1 PRN PRN Reason: Hypoglycemia Heparin Sodium (Beef Lung) (Heparin 500 Unit/5 Ml (100/Ml)) 500 unit IV UD PRN PRN Reason: HEPARIN FLUSH Sodium Chloride () 1,000 mls @ 0 mls/hr IV .Q0M [facility] Levofloxacin (Levaquin Iv) 750 mg in 150 mls @ 100 mls/hr IV Q24 [facility] Last Infusion: 12/28/18 11:42 Dose: Infused Documented by: Labetalol HCl (Trandate) 5 mg IV X1 PRN PRN Reason: SBP > 160 PRIOR TO SHEATH PULL Methylprednisolone (Solu-Medrol) 40 mg IV DAILY [facility] Last Admin: 12/28/18 10:12 Dose: 40 mg Documented by: Metoprolol Tartrate (Lopressor (Beta Tano)) 25 mg PO BID [facility] Morphine Sulfate () 2 mg IV Q4H PRN PRN PRN Reason: Mild back pain (0-2/10) Nicotine (Nicoderm Cq (Pbkc)) 14 mg TRANSDERM. DAILY [facility] Last Admin: 12/28/18 10:20 Dose: Not Given Documented by: Nitroglycerin (Nitrostat) 0.4 mg SUBLINGUAL Q5M PRN PRN Reason: CARDIAC/CHEST PAIN Nitroglycerin (Nitrostat) 0.4 mg SUBLINGUAL Q5M PRN PRN Reason: CARDIAC/CHEST PAIN Ondansetron HCl (Zofran) 4 mg IV Q8H PRN PRN PRN Reason: NAUSEA/VOMITING Sertraline HCl (Zoloft) 25 mg PO QHS [facility] Last Admin: 12/27/18 22:14 Dose: 25 mg Documented by: Sodium Chloride () 10 - 40 ml IV UD PRN PRN Reason: SALINE FLUSH Last Admin: 12/28/18 10:11 Dose: 20 ml Documented by: Sodium Chloride () 500 ml IV BOLUS PRN PRN Reason: VASO-VAGAL PROTOCOL Ticagrelor (Brilinta) 90 mg PO BID [facility] Last Admin: 12/28/18 08:15 Dose: 90 mg Documented by: Medical Necessity - Tobacco Use Smoking Status: Former smoker Assessment/Plan All Active Problems (Last Updated 12/26/18 @ 14:50 by Edilma Barnett) History of coronary artery stent placement (Resolved 12/26/18) Non-ST elevation (NSTEMI) myocardial infarction (Acute 12/26/18) Unstable angina (Acute) Hypoxemia (Acute) 1. Acute hypoxic respiratory failure secondary to COPD exacerbation and an NSTEMI/HTN/HLD -Troponin peaked at 1.420 -Cardiac cath with a stent in the RCA -Continue with aspirin and Brilinta as well as statin -Echo with an EF of 50% and mild segmental systolic dysfunction with stage I diastolic dysfunction -Appreciate cardiology assistance -Continue with nebulizers and Solu-Medrol daily -She is on Levaquin q48 hr secondary to creatinine clearance because of an elevated WBC on admission -Leukocytosis secondary to steroids, the repeat chest x-ray last night when she was more short of breath showed a possible early consolidation -Her oxygen requirement is now up to 3.5 L. Likely need home oxygen on discharge -Continue with Coreg and losartan -BNP was elevated therefore will was given a dose of Lasix this morning, will monitor 2. Anxiety/depression -Stable -Continue with Zoloft 3. Tobacco abuse -Advised continued cessation -States she quit smoking 2 weeks ago DVT: SCDs Code Visit Inpatient E&M: 70674 Subs Hosp L2
--- NOTE | 2018-12-28 13:31 | CASEMGMT ---
As per admitting RN, pt has LW and POA, but not on file and will bring them in. Pt stated that Gus and Zheng Romano are the POAs. MARISABEL Lee
--- NOTE | 2018-12-28 15:38 | CPS ---
added humidity to BIPAP for pt comfort.
[2018-12-28] MEDS: Metoprolol Tartrate 25 MG Tablet PO (22:13)
[2018-12-28] MEDS: Sertraline 50 MG Tablet 25 MG PO (22:14)
[2018-12-28] MEDS: Atorvastatin Calcium 80 MG Tablet PO (22:16)
[2018-12-29] VITALS (12 sets, daily range): BP systolic 119–143; BP diastolic 72–82; PULSE 80–124; RESP 12–26; TEMP 36.6–36.7; O2SAT 88–98
[2018-12-29] MEDS: Ipratropium/Albuterol Sulfate 3 ML AMPUL.NEB INHALATION ×3 (03:40→10:47)
--- NOTE | 2018-12-29 04:54 | NURSING ---
This RN was called in to room due to patient having difficulty breathing. Patient is asking for prednisone to help her stuffy nose. This RN explained to patient that prednisone does not help with stuffy nose it is to help with breathing. This RN offered to put Bipap back on patient but she refused and stated she does not want that on. This RN put humidifier back on patients nasal canula.
[2018-12-29] MEDS: Sodium Chloride 0.65% 1 SPRAY SPRAY.BTL NASAL (05:26)
[2018-12-29 06:31] LABS: Absolute Lymphocyte Count 1.43 X10^3/uL (0.83-4.51); Basophil# 0.02 X10^3/uL; Basophil% 0.1 % (0-1); Eosinophil# 0.01 X10^3/uL; Eosinophils% 0.1 % (0-5); Hematocrit 44.8 % (37-47); Hemoglobin 14.8 g/dL (12.0-15.0); Lymphocyte # 1.43 X10^3/ul (4.0); Lymphocyte % 8.7 % (19-41); Mean Corpuscular Hgb 28.8 pg (27.0-32.0); Mean Corpuscular Volume 87.3 fL (81-99); Mean Platelet Vol. 10.5 fl (6.2-12.0); Monocyte# 1.77 X10^3/uL; Monocyte% 10.8 % (0-10); NRBC Flagged by Analyzer 0 % (0-5); Neutrophil # 13.04 X10^3/uL (2.7-7.7); Neutrophil % 79.7 % (47-70); POSITIVE DIFFERENTIAL YES; Platelet Count 220 K/mm3 (150-450); RBC Distribution Width CV 13.6 % (11.6-14.6); RBC Distribution Width SD 43.8 fl (35.1-43.9); Red Blood Count 5.13 M/mm3 (4.2-5.4); White Blood Count 16.4 K/mm3 (4.4-11.0)
[2018-12-29 06:41] LABS: Differential Indicated SCAN CRITERIA MET
[2018-12-29 06:49] LABS: Anion Gap 7 (5-15); BUN 29 mg/dL (7-18); BUN/Creat Ratio 37.2 RATIO (10-20); Calcium,Total 9.1 mg/dL (8.5-10.1); Chloride 102 mmol/L (98-107); Creatinine, Serum 0.78 mg/dL (0.55-1.02); EST Glomerular Filtration Rate 79 mL/min (>60); Est Glom Filt Rate - Afr Amer 96 mL/min (>60); Estimated Creatinine Clearance 59.15 ml/min; Glucose 102 mg/dL (74-106); Magnesium 2.3 mg/dL (1.6-2.6); Phosphorus 3.1 mg/dL (2.5-4.9); Potassium 3.5 mmol/L (3.5-5.1); Sodium Level 141 mmol/L (136-145)
[2018-12-29 07:00] LABS: Differential Comment SCANNED
[2018-12-29] MEDS: diazePAM 5 MG Tablet PO (07:19)
--- NOTE | 2018-12-29 07:53 | PCM.PN.PUL ---
Patient Problems: Active and Suspected Problems (Last Updated 12/26/18 @ 14:50 by Edilma Barnett) Non-ST elevation (NSTEMI) myocardial infarction (Acute 12/26/18) Subjective: Patient feels subjectively improved compared to previous. Patient still appears to be very anxious about her breathing status. Patient states she has significant dry mouth associated with the use of BiPAP. Patient had another episode of regurgitation/heartburn last evening leading to more anxiety. Patient's heart rate is somewhat improved compared to yesterday. - Physical Exam General: Alert, Oriented x3, Cooperative, - - Anxious. Obese. Appears older than stated age. HEENT: Atraumatic, PERRLA, EOMI, Normocephalic, - - No scleral icterus or injection noted. Oral: Moist Mucosa, No Gingival or Mucosal Lesions/ Ulcerations Neck: Supple, No Nodes, Trachea Midline, JVD, Right Lungs: No rhonchi, Diminished, Rales, Wheezes - An element of voluntary wheezing noted Cardiovascular: Normal S1, Normal S2, No murmurs, No rub noted, No Gallop, Tachycardic Abdomen: Bowel Sounds Present, Soft, Non Tender, Non-Distended Extremities: No clubbing, No cyanosis, No edema, Capillary Refill Less than 3 Seconds Skin: No rashes, No breakdown Musculoskeletal: No Tenderness to Palpation of Joints or Extremities Lymphatic: No Cervical, Supraclavicular, or Inguinal Adenopathy Neurological: Cranial nerves II-XII grossly intact, Neuro grossly intact, Motor Exam 5/5 strength throughout Psych/Mental Status: Anxious, Restless Vital Signs Temp Pulse Resp BP Pulse Ox 36.7 C 97 18 119/82 H 94 12/29/18 03:45 12/29/18 03:45 12/29/18 03:45 12/29/18 03:45 12/29/18 03:45 Oxygen Flow Rate (L/min) [ 2 AMBULATION with Oxygen] Oxygen Flow Rate (L/min) [ 0 AMBULATING on Room Air] Oxygen Flow Rate (L/min) [At 0 REST on Room Air] Oxygen Flow Rate (L/min) 3 Oxygen Delivery Method Nasal Cannula Weight: 73.4 kg Body Mass Index (BMI) 29.3 Intake and Output for Last 24 Hours 08/20/19 08/21/19 08/22/19 23:59 23:59 23:59 Intake Total 1730 / 1730 1110 / 1210 160 / 160 Output Total 800 / 800 550 / 550 Balance 930 / 930 560 / 660 160 / 160 Microbiology Past 72 Hours 12/28/18 18:25 Gram Stain - Preliminary Sputum, Expectorated/Coughed Laboratory Tests Past 24 Hrs 12/28/18 12/28/18 12/28/18 05:14 05:14 08:35 WBC RBC Hgb Hct MCV MCH MCHC RDW Std Deviation RDW Coeff of Ruy Plt Count MPV Immature Gran % (Auto) Neut % (Auto) Lymph % (Auto) [place] % (Auto) Eos % (Auto) Baso % (Auto) Absolute Neuts (auto) Absolute Lymphs (auto) Nucleated RBC % Differential Comment Diff Path Review Sodium 141 Potassium 4.2 Chloride 106 Carbon Dioxide 26.0 Anion Gap 9 BUN 24 H Creatinine 0.62 Estim Creat Clear Calc 74.41 Est GFR (MDRD) Af Amer 126 Est GFR (MDRD) Non-Af 104 BUN/Creatinine Ratio 39.0 H Glucose 112 H Calcium 9.0 Phosphorus Magnesium Troponin I 1.020 H* B-Natriuretic Peptide 464.1 H 12/29/18 12/29/18 06:20 06:20 WBC 16.4 H RBC 5.13 Hgb 14.8 Hct 44.8 MCV 87.3 MCH 28.8 MCHC 33.0 RDW Std Deviation 43.8 RDW Coeff of Ruy 13.6 Plt Count 220 MPV 10.5 Immature Gran % (Auto) 0.600 Neut % (Auto) 79.7 H Lymph % (Auto) 8.7 L [place] % (Auto) 10.8 H Eos % (Auto) 0.1 Baso % (Auto) 0.1 Absolute Neuts (auto) 13.0 H Absolute Lymphs (auto) 1.43 Nucleated RBC % 0 Differential Comment SCANNED Diff Path Review May foll Sodium 141 Potassium 3.5 Chloride 102 Carbon Dioxide 32.0 Anion Gap 7 BUN 29 H Creatinine 0.78 Estim Creat Clear Calc 59.15 Est GFR (MDRD) Af Amer 96 Est GFR (MDRD) Non-Af 79 BUN/Creatinine Ratio 37.2 H Glucose 102 Calcium 9.1 Phosphorus 3.1 Magnesium 2.3 Troponin I B-Natriuretic Peptide Medical Necessity - Tobacco Use Smoking Status: Former smoker Assessment/Plan All Active Problems (Last Updated 12/26/18 @ 14:50 by Edilma Barnett) Acute combined systolic (congestive) and diastolic (congestive) heart failure (Acute) History of coronary artery stent placement (Resolved 12/26/18) Non-ST elevation (NSTEMI) myocardial infarction (Acute 12/26/18) COPD with exacerbation (Resolved) Hypoxemia (Resolved) Unstable angina (Resolved) RECOMMENDATIONS: 1. Complete 7 days of Levaquin therapy 2. Okay to transition to prednisone therapy and wean over the next 12 to 14 days 3. Walking oximetry may need to be repeated depending on discharge timing. Probable need for supplemental oxygen, at least on ambulation 4. Initiate on PPI 5. Consider further diuretic therapy 6. Outpatient complete PFT IMPRESSIONS: 1. Acute hypoxic respiratory insufficiency secondary to a COPD exacerbation Patient noted to have significant polycythemia on presentation. Clinical suspicion for some element of volume depletion, but patient also is reporting significant decline in exercise tolerance. Clinical suspicion for desaturation with ambulation leading to exercise limitations. Patient would benefit from a walking oximetry and probable discharge on supplemental oxygen. Unclear if this is going to be a long-term requirement. Patient can be transition to prednisone therapy and wean over the next 12 to 14 days. Levaquin can be transitioned to p.o. and finish a 7-day course. Patient can follow-up in our office in 2 weeks for complete pulmonary function test for quantification and clarification of lung function. Patient with inaccurate I's and O's, but does appear to have responded well to diuretic therapy. Renal function is well-preserved at this time. Defer to cardiology, but would consider additional diuretic therapy and titration of rate control. 2. Non-ST elevation CT secondary to RCA lesion status post stent Clear related to patient's smoking. RCA lesion would be significant given patient's increased pulmonary vascular issues associated with probable advanced COPD. Defer to cardiology, but patient appears to be responding appropriately. No signs or symptoms of complications from the procedure at this time. Patient has been approached by cardiac rehab. 3. Hypertension/hyperlipidemia/anxiety/depression/tobacco abuse Complicates care, management, recovery and prognosis. Patient does not believe that she needs nicotine patches to continue with smoking cessation. Did stress to the patient the importance of avoiding open flames the presence of oxygen. Patient voiced understanding. Okay to continue baseline medications from my perspective. Code Visit Inpatient E&M: 53111 Subs Hosp L3
[2018-12-29] MEDS: Pantoprazole Sodium 40 MG Tablet PO (08:14)
[2018-12-29] MEDS: predniSONE 20 MG Tablet 40 MG PO (08:16)
[2018-12-29] MEDS: Loratadine 10 MG Tablet PO (08:16)
[2018-12-29] MEDS: Aspirin E.C. 81 MG Tablet PO (08:16)
[2018-12-29] MEDS: TICAGRELOR 90 MG TABLET PO (08:47)
[2018-12-29] MEDS: levoFLOXacin IV 750 MG/150 ML BAG 100 MG IV (08:47)
[2018-12-29] MEDS: Metoprolol Tartrate 25 MG Tablet PO (08:47)
[2018-12-29] MEDS: 0.9% NaCl Peripheral Flush Adult/Peds IV (08:48)
--- NOTE | 2018-12-29 09:16 | DCINST_ITS ---
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) Non-ST elevation (NSTEMI) myocardial infarction (Acute 12/26/18) Essential (primary) hypertension (Chronic) You will use the following diet at home:: Cardiac Your food should be the consistency of: Regular Your liquids should be the consistency of: Regular/Thin Discharge Activity: Return to Normal Activity, No Restrictions Call your doctor if your incision/area has: Increased Pain/ Swelling, Increased Redness, Foul Smelling Discharge Call your doctor if you observe: Fever of 101 or Higher, Shortness of breath, Dizziness, Fainting spells, Swelling in the ankles, Chest pain, Increased palpitations (irregular heartbeat) Allergies/Adverse Reactions: Allergies diphenhydramine [From Benadryl] Allergy (Verified 05/20/18 13:24) Unknown Penicillins Allergy (Verified 05/20/18 13:24) Swelling Medications to take at Discharge Albuterol Inhaler [Ventolin Hfa] 1 - 2 puff INHALATION Q4H PRN PRN 05/20/18 Metoprolol Tartrate 50 mg PO BID 05/20/18 Sertraline HCl 25 mg PO DAILY 05/20/18 Budesonide/Formoterol 160/4.5 [Symbicort 160/4.5 Mcg Inhaler (SP)] 1 puff INHALATION BID 12/26/18 Aspirin E.C. [Ecotrin] 81 mg PO DAILY@0800 #30 tab 12/29/18 Atorvastatin Calcium [Lipitor] 80 mg PO QHS #30 tab 12/29/18 Ticagrelor [Brilinta] 90 mg PO BID #60 tab 12/29/18 levoFLOXacin tablet [Levaquin tablet] 750 mg PO DAILY #5 tab 12/29/18 predniSONE tablet 40 mg PO DAILY@0800 #17 tab 12/29/18 The following prescriptions were given: Ticagrelor [Brilinta] 90 mg PO BID #60 tab Transmission Status: Received by [facility] Aspirin E.C. [Ecotrin] 81 mg PO DAILY@0800 #30 tab Transmission Status: Received by [facility] levoFLOXacin tablet [Levaquin tablet] 750 mg PO DAILY #5 tab Transmission Status: Received by [facility] Atorvastatin Calcium [Lipitor] 80 mg PO QHS #30 tab Transmission Status: Received by [facility] predniSONE tablet 40 mg PO DAILY@0800 #17 tab Transmission Status: Received by [facility] Primary Care Physician: Pili Acevedo [Primary Care Provider] - Please follow up with your Primary Care Physician in: 3-5 days Test Results: Test results from this visit will be discussed in further detail at your follow- up appointment, if applicable. Please Follow Up With: Tico Mcgarry MD When: 1-2 weeks Please Follow Up With: Radhames Heart MD When: 1-2 weeks
--- NOTE | 2018-12-29 09:20 | DS.PCM_ITS ---
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 Echo: Interpretation Summary Normal LV size. The estimated ejection fraction is 50 %. Mild segmental systolic dysfunction (see wall motion). Stage 1 diastolic dysfunction. Contrast injection was performed. Cardiac Cath: CONCLUSIONS Successful PTCA/ADE mid RCA with a 2.25 x 16 Promus Synergy, 85%-->0%, no dissection. RECOMMENDATIONS Highly recommend quitting all tobacco products Follow up with primary real estate subagent Risk factor modification ASA Indefinitley Plavix for at least 12 months Routine post interventional care Refer for Outpatient Cardiac Rehab Manual sheath removal per protocol Follow up with Dr. Mcgarry Stress test in 2 weeks to eval LAD and LCX lesions. Successful Mynx Control of RFA. Consults: Cardiology Pulmonology Operations: None Procedures: 2-D Echocardiogram, Cardiac catheterization Summary of Care Provided: Per HPI: The patient is a 63 year old F with past medical history of COPD, hypertension and anxiety. She was admitted through the ED on 12/26/2018 with a complaint of shortness of breath. She quit smoking about 2 weeks ago and was started on nicotine patch but states she is not comfortable using the patch. She complains of shortness of breath was started a few hours prior to admission today. She states was relieved with use of her rescue inhalers. She also had assisted wheezing and a cough productive of greenish sputum. She denied any chest pain at time of review though she did admit to some tightness in her chest. She denied any dizziness but admitted to feeling lightheaded. Review of systems was otherwise negative. The ED, vitals were significant for tachypnea with respiratory rate of 22 at time of admission she was on 4 L of oxygen at time of review. She was afebrile and chemistry was essentially normal. Initial troponin was 0.405 and CBC showed WBC of 16.1 with hemoglobin of 17.5. Chest x- ray showed no acute cardia pulmonary process. She does have a history of DVT or PE and has not been on any long distance journey recently. EKG showed no acute ST changes and showed possible right ventricular hypertrophy. She has been admitted to be managed for acute hypoxic respiratory failure due to COPD exacerbation and non-STEMI. Hospital Course: 1. Acute hypoxic history failure secondary to COPD exacerbation and a non- STEMI/HTN/HLD/acute diastolic heart [id number]-old female presented with shortness of breath. She states that she quit smoking about 2 weeks prior to admission. On admission she was afebrile with leukocytosis and her initial troponin was 0.405 which ultimately peaked to 1.42. She underwent cardiac catheterization with a drug-eluting stent to the RCA. She was started on aspirin and Brilinta and her metoprolol was transitioned to Coreg. She had difficulty with the Coreg, she was becoming tachycardic partly due to anxiety about her medical issues, however her blood pressure was also dropping into the 90s. So her Coreg was discontinued and she was restarted on metoprolol twice daily, which has resolved her issue with hypotension and has controlled her heart rate better. Also started on Solu-Medrol and inhalers while she was here. We will perform an ambulatory pulse ox today prior to discharge and get her home with oxygen. She is maintaining her oxygen sats on 2-1/2 to 3 L nasal cannula. She does not have any oxygen at home. We discharged on a 12 to 14-day prednisone taper with when she has an outpatient. She also need to follow-up with cardiology in 1 to 2 weeks as well. There is also some concern that her symptoms are secondary to diastolic heart failure, she had a normal EF on her echo but she did have stage I diastolic dysfunction and she had some response to IV diuresis. Given her blood pressure, will hold off on discharging her on Lasix until her outpatient follow-up. 2. Community-acquired pneumonia-initially on admission her chest x-ray was unremarkable despite having a white count. She was started on Levaquin on admission, and repeat chest x-ray because of increasing shortness of breath demonstrated a possible right early lower lobe pneumonia. She is to be continued on her Levaquin for 5 more days after discharge. 3. Her other medical diagnoses were evaluated and her home medications were continued where appropriate Patient Problems: Active and Suspected Problems (Last Updated 12/26/18 @ 14:50 by Edilma Barnett) Non-ST elevation (NSTEMI) myocardial infarction (Acute 12/26/18) Objective: General: Alert, Oriented x3, Cooperative, No apparent distress HEENT: Atraumatic, PERRLA, EOMI, Normocephalic Oral: Moist Mucosa Neck: Supple, No JVD Lungs: Poor air movement, No rhonchi, No rales, slight wheezes bilaterally Cardiovascular: Regular rate, Regular Rhythm, Normal S1, Normal S2, No murmurs Abdomen: Soft, Non Tender, Non-Distended, No Hepato-splenomegaly Extremities: No edema, Capillary Refill Less than 3 Seconds Skin: No rashes, No breakdown, Incision - Dressing over the cath site is intact Neurological: Neuro grossly intact, Sensory exam intact to light touch and pain Psych/Mental Status: Normal Affect, Appropriate - Physical Exam Vital Signs Temp Pulse Resp BP Pulse Ox 97.8 F 124 H 22 H 143/76 H 95 12/29/18 08:43 12/29/18 08:47 12/29/18 08:43 12/29/18 08:47 12/29/18 08:43 Oxygen Flow Rate (L/min) [ 3 AMBULATION with Oxygen] Oxygen Flow Rate (L/min) [ 0 AMBULATING on Room Air] Oxygen Flow Rate (L/min) [At 0 REST on Room Air] Oxygen Flow Rate (L/min) 3 Oxygen Delivery Method Nasal Cannula Weight: 161 lb 13.109 oz Body Mass Index (BMI) 29.3 Intake and Output for Last 24 Hours 12/27/18 12/28/18 12/29/18 23:59 23:59 23:59 Intake Total 1730 / 1730 1110 / 1210 160 / 160 Output Total 800 / 800 550 / 550 Balance 930 / 930 560 / 660 160 / 160 Microbiology Past 72 Hours 12/28/18 18:25 Gram Stain - Preliminary Sputum, Expectorated/Coughed Laboratory Tests Past 24 Hrs 12/28/18 12/28/18 12/29/18 05:14 08:35 06:20 WBC 16.4 H RBC 5.13 Hgb 14.8 Hct 44.8 MCV 87.3 MCH 28.8 MCHC 33.0 RDW Std Deviation 43.8 RDW Coeff of Ruy 13.6 Plt Count 220 MPV 10.5 Immature Gran % (Auto) 0.600 Neut % (Auto) 79.7 H Lymph % (Auto) 8.7 L [place] % (Auto) 10.8 H Eos % (Auto) 0.1 Baso % (Auto) 0.1 Absolute Neuts (auto) 13.0 H Absolute Lymphs (auto) 1.43 Nucleated RBC % 0 Differential Comment SCANNED Diff Path Review May foll Sodium Potassium Chloride Carbon Dioxide Anion Gap BUN Creatinine Estim Creat Clear Calc Est GFR (MDRD) Af Amer Est GFR (MDRD) Non-Af BUN/Creatinine Ratio Glucose Calcium Phosphorus Magnesium Troponin I 1.020 H* B-Natriuretic Peptide 464.1 H 12/29/18 06:20 WBC RBC Hgb Hct MCV MCH MCHC RDW Std Deviation RDW Coeff of Ruy Plt Count MPV Immature Gran % (Auto) Neut % (Auto) Lymph % (Auto) [place] % (Auto) Eos % (Auto) Baso % (Auto) Absolute Neuts (auto) Absolute Lymphs (auto) Nucleated RBC % Differential Comment Diff Path Review Sodium 141 Potassium 3.5 Chloride 102 Carbon Dioxide 32.0 Anion Gap 7 BUN 29 H Creatinine 0.78 Estim Creat Clear Calc 59.15 Est GFR (MDRD) Af Amer 96 Est GFR (MDRD) Non-Af 79 BUN/Creatinine Ratio 37.2 H Glucose 102 Calcium 9.1 Phosphorus 3.1 Magnesium 2.3 Troponin I B-Natriuretic Peptide Discharge Activity: Return to Normal Activity, No Restrictions Call your doctor if your incision/area has: Increased Pain/ Swelling, Increased Redness, Foul Smelling Discharge Call your doctor if you observe: Fever of 101 or Higher, Shortness of breath, Dizziness, Fainting spells, Swelling in the ankles, Chest pain, Increased palpitations (irregular heartbeat) Home Medications: Medications to take at Discharge Albuterol Inhaler [Ventolin Hfa] 1 - 2 puff INHALATION Q4H PRN PRN 05/20/18 Metoprolol Tartrate 50 mg PO BID 05/20/18 Sertraline HCl 25 mg PO DAILY 05/20/18 Budesonide/Formoterol 160/4.5 [Symbicort 160/4.5 Mcg Inhaler (SP)] 1 puff INHALATION BID 12/26/18 Aspirin E.C. [Ecotrin] 81 mg PO DAILY@0800 #30 tab 12/29/18 Atorvastatin Calcium [Lipitor] 80 mg PO QHS #30 tab 12/29/18 Ticagrelor [Brilinta] 90 mg PO BID #60 tab 12/29/18 levoFLOXacin tablet [Levaquin tablet] 750 mg PO DAILY #5 tab 12/29/18 predniSONE tablet 40 mg PO DAILY@0800 #17 tab 12/29/18 Following Prescrptions Were Given to Patient: Ticagrelor [Brilinta] 90 mg PO BID #60 tab Transmission Status: Received by [facility] Aspirin E.C. [Ecotrin] 81 mg PO DAILY@0800 #30 tab Transmission Status: Received by [facility] levoFLOXacin tablet [Levaquin tablet] 750 mg PO DAILY #5 tab Transmission Status: Received by [facility] Atorvastatin Calcium [Lipitor] 80 mg PO QHS #30 tab Transmission Status: Received by [facility] predniSONE tablet 40 mg PO DAILY@0800 #17 tab Transmission Status: Received by [facility] Primary Care Physician: Pili Acevedo [Primary Care Provider] - Please follow up with your Primary Care Physician in: 3-5 days Please Follow Up With: Tico Mcgarry MD When: 1-2 weeks Please Follow Up With: Radhames Heart MD When: 1-2 weeks Disposition: Home Minutes spent on discharge:: 35 Patient Condition:: Stable Medical Necessity - Tobacco Use Smoking Status: Former smoker Meaningful Use Info Meaningful Use Diagnoses (Choose all that apply): AMI - AMI Aspirin given w/in 24hrs of arrival?: Yes ASA at discharge?: Yes Statins at discharge?: Yes Wilberto/ARB at discharge?: No Reason Wilberto/ARB not ordered:: Hypotension Beta Tano at discharge?: Yes Done w/ Acute LA measure.: Yes Documented LVEF (%): 50 Code Visit Inpatient E&M: 73840 Disch Hosp
[2018-12-29] MEDS: Furosemide 40 MG Tablet PO (11:11)
--- NOTE | 2018-12-29 11:12 | CASEMGMT ---
Pt still qualifies for home oxygen at this time. Order was sent on 12/27 and pt was already delivered tank here at hospital. Call to Eula at [facility] [place] and she states that no new order is needed just the new testing. New testing is faxed to [facility] [place] at this time. Radha PALMER CM
[2018-12-29 12:03] LABS: Pathologist Review Reviewed
== END 2018-12-29 13:43 | disposition home or self-care (01) | DRG 174 ==
LOC: ED 23:52 → PCU 12-26 00:03 → ICU 12-26 09:52 → PCU 12-27 11:50
PROVIDERS: Hospitalist; Internal Medicine Cardiovascular Disease; Internal Medicine Critical Care Medicine; Admitting Provider Student in an Organized Health Care Education/Training Program; Emergency Provider Emergency Medicine; Referring Provider Student in an Organized Health Care Education/Training Program; Visit Provider Family Medicine
DX: I21.4 Non-ST elevation (NSTEMI) myocardial infarction (principal); J44.1 Chronic obstructive pulmonary disease with (acute) exacerbation; J96.01 Acute respiratory failure with hypoxia; F41.9 Anxiety disorder, unspecified; Z66 Do not resuscitate; E78.5 Hyperlipidemia, unspecified; Z72.0 Tobacco use; I25.110 Atherosclerotic heart disease of native coronary artery with unstable angina pectoris; D75.1 Secondary polycythemia; I11.0 Hypertensive heart disease with heart failure; I50.31 Acute diastolic (congestive) heart failure
CPT/HCPCS: 36415; 36600; 71045; 80048; 80053; 80061; 82803; 83036; 83735; 83880; 84100; 84484; 85025; 85027; 85347; 87070; 87205; 87641; 92928; 93005; 93306; 93458; 94002; 94003; 94640; 97161; 97165; 97802; 99152; 99153; 99251; 99285; C1760; J7030; J7040; Q9957; Q9967; A4216; C1725; C1769; C1874; C1887; C1894; C8929; C9600; G0463; J1940

== ENCOUNTER → 2019-02-16 10:27 | Outpatient (CLI) | payer MEDICAID, SELFPAY ==
[2019-01-02 12:36] VITALS: BMI 29.3
[2019-02-15 14:14] VITALS: BMI 28.5
--- NOTE | 2019-02-16 12:15 | PFT ---
INTRODUCTION: The patient is a 64-year-old female that presents for pulmonary function studies secondary to a diagnosis of COPD. Respiratory therapy reports that the patient was unable to perform the maneuvers associated with yielding acceptable and reproducible spirometric and DLCO results. Lung volumes by plethysmography were reproducible. Bronchodilators were used during testing. INTERPRETATION: Forced expiration spirometry demonstrates the presence of a very severe large airways obstructive ventilatory defect. There was a significant response to aerosolized bronchodilators noted based upon change in FVC, which is likely secondary to patient effort. Spirograms are of poor quality and terminate prior to 6 seconds, likely underestimating FVC. Body plethysmography was performed and reveals an elevated TLC and RV, which would be indicative of underlying hyperinflation and air trapping in the setting of obstructive lung disease. Diffusing capacity by single breath CO severely reduced to 23% of predicted. IMPRESSION: Spirometric values and diffusing capacity are unable to be accurately interpreted due to a lack of acceptable and reproducible results. Lung volumes were suggestive of hyperinflation and air trapping. Clinical correlation is recommended.
== END ==
PROVIDERS: Referring Provider Nurse Practitioner Acute Care; Visit Provider Nurse Practitioner Acute Care
DX: J44.9 Chronic obstructive pulmonary disease, unspecified (principal); R09.02 Hypoxemia
CPT/HCPCS: 94060; 94726; 94729

== ENCOUNTER → 2019-02-25 10:07 | Outpatient (CLI) | payer MEDICAID, SELFPAY ==
[2019-01-04 09:21] VITALS: BMI 28.5
[2019-02-15 14:14] VITALS: BMI 28.5
--- NOTE | 2019-02-25 10:10 | US_ITS ---
HISTORY: Abdominal pain. Sometimes indigestion. No comparison imaging. 218 images. Findings: Visualized portions of the pancreas normal. The liver is normal. Hepatopedal flow present centrally within the portal vein. The IVC and aorta appear normal. The right kidney is normal. The gallbladder is well distended. No pericholecystic fluid. An echogenic non-shadowing filling defect is present within the gallbladder lumen. The gallbladder wall is measured at 2 mm thick. No pericholecystic fluid. No pain upon insonation of the gallbladder. The common bile duct is normal at 3 mm. Color Doppler imaging was not performed over the filling defect within the gallbladder lumen The left kidney is normal. The spleen is not enlarged. US/Abdomen Complete IMPRESSION: No acute disease perceived. Solitary 3 mm filling defect that is non-shadowing within the gallbladder lumen. This could be a noncalcified gallstone, or gallbladder polyp. at 0123 Reported and signed by: Reed Turner MD Electronically Signed: Reed Turner MD at 1:21 EDT Tel , Service support ,
== END ==
DX: R10.11 Right upper quadrant pain (principal)
CPT/HCPCS: 76700

== ENCOUNTER → 2019-03-02 08:32 | Outpatient (CLI) | payer MEDICAID, SELFPAY ==
[2019-03-02 05:52] VITALS: BMI 28.3
[2019-03-02 09:52] VITALS: PULSE 76; RESP 19
[2019-03-02] MEDS: Sodium Chloride 3% 500 ML IV.SOLN. INHALATION (09:53)
== END ==
PROVIDERS: Referring Provider Internal Medicine Critical Care Medicine; Visit Provider Internal Medicine Critical Care Medicine
DX: J44.9 Chronic obstructive pulmonary disease, unspecified (principal); R09.02 Hypoxemia; R05 Cough
CPT/HCPCS: 87070; 87205; 87633; 94640

== ENCOUNTER 2019-04-17 16:27 | Emergency (ER) | payer MEDICAID, SELFPAY ==
[2019-03-02 05:52] VITALS: BMI 28.3
[2019-04-17 16:31] VITALS: BP 156/83; PULSE 104; RESP 18; TEMP 36.6; O2SAT 85; BMI 29.9
--- NOTE | 2019-04-17 16:51 | EKG12_ITS ---
Test Reason : Blood Pressure : / mmHG Vent. Rate : 091 BPM Atrial Rate : 091 BPM P-R Int : 162 ms QRS Dur : 082 ms QT Int : 352 ms P-R-T Axes : 085 086 077 degrees QTc Int : 432 ms Normal sinus rhythm Nonspecific ST abnormality Abnormal ECG Confirmed by CECE CLEMENTS, RIP ([id number]), publishing editor TRACE PALAFOX ([id number] on 04/19/2019 11:45:43 AM Referred By: JOSE ALEJANDRO/LITA Confirmed By:RIP ZHAO MD
--- NOTE | 2019-04-17 16:54 | RAD_ITS ---
STUDY: X-RAY CHEST REASON FOR EXAM: Female, 64 years old. History of COPD TECHNIQUE: Single AP portable view of the chest. COMPARISON: December 28, 2018 chest x-ray FINDINGS: Interstitial markings are mildly prominent. There is no demonstrated pleural abnormality. Normal size heart. Normal mediastinum and rafia. Normal visualized pulmonary arteries. There is atherosclerotic calcification of the aortic arch with tortuosity. There are diffuse degenerative changes of the visualized thoracic spine. Normal visualized ribs, clavicles, and shoulders. There is no demonstrated abnormality of the visualized soft tissue structures of the upper abdomen. RAD/Chest 1 View (Portable) IMPRESSION: Stable chest. No evidence of acute focal infiltrate. Electronically Signed: Balbina Villela MD at 17:14 EST Tel , Service support ,
[2019-04-17 17:10] VITALS: BP 142/92; PULSE 89; RESP 20; TEMP 36.7; O2SAT 98
[2019-04-17 17:18] VITALS: PULSE 82; RESP 16; RESP 17; O2SAT 97
[2019-04-17] MEDS: 0.9% Normal Saline 1,000 ML 150 ML IV (17:18)
[2019-04-17] MEDS: Ipratropium/Albuterol Sulfate 3 ML AMPUL.NEB INHALATION (17:18)
[2019-04-17] MEDS: Albuterol 2.5 MG/3 ML VIAL.NEB. INHALATION ×2 (17:18)
[2019-04-17] MEDS: MethylPREDNISolone 125 MG/2 ML Vial IV (17:18)
[2019-04-17 17:21] LABS: Absolute Lymphocyte Count 1.14 X10^3/uL (0.83-4.51); Basophil# 0.07 X10^3/uL; Basophil% 0.6 % (0-1); Eosinophil# 0.24 X10^3/uL; Eosinophils% 1.9 % (0-5); Hemoglobin 14.7 g/dL (12.0-15.0); Lymphocyte # 1.14 X10^3/ul (4.0); Mean Corp Hgb Conc 33.4 g/dL (32-36); Mean Corpuscular Hgb 28.9 pg (27.0-32.0); Mean Corpuscular Volume 86.4 fL (81-99); Mean Platelet Vol. 10.4 fl (6.2-12.0); Monocyte# 1.14 X10^3/uL; NRBC Flagged by Analyzer 0 % (0-5); Neutrophil # 9.98 X10^3/uL (2.7-7.7); Neutrophil % 79.2 % (47-70); Platelet Count 257 K/mm3 (150-450); RBC Distribution Width CV 13.2 % (11.6-14.6); RBC Distribution Width SD 41.1 fl (35.1-43.9); Red Blood Count 5.09 M/mm3 (4.2-5.4); White Blood Count 12.6 K/mm3 (4.4-11.0)
[2019-04-17 17:34] LABS: Anion Gap 8 (5-15); BUN 12 mg/dL (7-18); BUN/Creat Ratio 18.1 RATIO (10-20); Calcium,Total 9.8 mg/dL (8.5-10.1); Chloride 99 mmol/L (98-107); Creatinine, Serum 0.66 mg/dL (0.55-1.02); EST Glomerular Filtration Rate 96 mL/min (>60); Est Glom Filt Rate - Afr Amer 116 mL/min (>60); Estimated Creatinine Clearance 65.84 ml/min; Glucose 109 mg/dL (74-106); Potassium 3.7 mmol/L (3.5-5.1); Sodium Level 137 mmol/L (136-145)
--- NOTE | 2019-04-17 18:27 | ED.DCSUM_ITS ---
- ER Visit Summary Date of Service: 04/17/19 Chief Complaint: [Shortness of breath] History of Present Illness: The patient is a 64 F [presents to the emergency department with complaint of shortness of breath that she has had for about 5 days. Patient states that she developed a cold with cough and some sputum production and at times is green and yellow. She denies any fever. Patient states that her has a similar illness. Patient has history of COPD and history of hypertension. Patient is on 3 L of O2 at all times. She was seen by her nurse practitioner at [facility] today and was advised to come to the ER for evaluation. On her 3 L apparently she was satting 85% so they bumped her up to 5 L on arrival to the ER. He does describe some exertional dyspnea. She denies any chest pain.] Physical Examination: [HEENT-PERRLA, EOMI. Cranial nerves II through XII grossly intact. TMs clear. Mucous membranes moist. No adenopathy. Cardiovascular-regular rate and rhythm without murmur or ectopy Lungs-manage breath sounds bilaterally with some expiratory wheezes. No accessory muscle use or retractions. No conversational dyspnea. Abdomen-normoactive bowel sounds, soft, nontender, no rebound or rigidity, no peritoneal signs. Extremities-intact ?4, normal range of motion, normal pulses, atraumatic] Test Results: [Chest x-ray obtained showed nothing acute. CBC with differential showing a 12.6, hemoglobin 15, hematocrit 44, placed 257. Chemistries unremarkable. Troponin was less than 0.015. EKG obtained arrival shows sinus rhythm with a ventricular rate of 91 bpm with some nonspecific ST changes. When compared with prior EKG from December 282018 no significant changes noted.] Emergency Department Course and Treatment: [Patient was given DuoNeb aerosol and given Solu-Medrol 125 mg IV. Patient was given albuterol aerosols. Patient was started on Levaquin 750 p.o.] Treatment Plan: [With patient results and treatment options. She is currently feeling good enough to go home and does not want to be admitted. Patient's O2 sat on 3 L is in the mid 90s. She will be started on prednisone and Levaquin.] Disposition: [Discharged home in stable condition. Patient advised to follow-up with her pricing supervisor within next 3 to 5 days. Advised to return if increasing shortness of breath or condition should worsen anyway.] Impression: [COPD exacerbation] This note was generated with Wash[employer] dictation software. It may contain incorrect words, spelling, and punctuation that were not noted in review of the chart prior to signing ED Disposition - Plan for ED Patient: Referrals: Jyoti Mosquera,Pili Alcocer [Primary Care Provider] -
--- NOTE | 2019-04-17 18:30 | ED.DEP ---
ED Disposition - Plan for ED Patient: Instructions: Copd Flare Prescriptions: Prednisone [Deltasone] 20 mg PO BID #10 tab Prescription Printed levoFLOXacin tablet [Levaquin tablet] 750 mg PO DAILY #6 tab Prescription Printed Referrals: [facility] Pili Mosquera [Primary Care Provider] - Radhames Heart MD [STAFF PHYSICIAN] - 3-5 Days
[2019-04-17 18:38] VITALS: O2SAT 97
[2019-04-17] MEDS: levoFLOXacin 750 MG Tablet PO (18:47)
[2019-04-17 18:48] VITALS: BP 148/90; PULSE 72; RESP 17; O2SAT 96
== END 2019-04-17 18:50 | disposition home or self-care (01) ==
LOC: ED 16:48
PROVIDERS: Emergency Provider Emergency Medicine
DX: J44.1 Chronic obstructive pulmonary disease with (acute) exacerbation (principal); I10 Essential (primary) hypertension; I25.10 Atherosclerotic heart disease of native coronary artery without angina pectoris; Z99.81 Dependence on supplemental oxygen; Z79.82 Long term (current) use of aspirin; Z79.899 Other long term (current) drug therapy; Z87.891 Personal history of nicotine dependence
CPT/HCPCS: 71045; 80048; 84484; 85025; 87804; 93005; 94640; 96361; 96374; 99251; 99285; J7030; A4216; G0463

== ENCOUNTER 2019-05-08 12:29 | Observation (INO) | payer MEDICAID, SELFPAY ==
[2019-05-08] VITALS (13 sets, daily range): BP systolic 128–179; BP diastolic 83–97; PULSE 74–112; RESP 16–20; TEMP 36.3–37.1; O2SAT 88–100; BMI 27.4; BMI 29.5
--- NOTE | 2019-05-08 12:38 | EKG12_ITS ---
Test Reason : SOB Blood Pressure : / mmHG Vent. Rate : 084 BPM Atrial Rate : 084 BPM P-R Int : 174 ms QRS Dur : 078 ms QT Int : 362 ms P-R-T Axes : 084 065 080 degrees QTc Int : 427 ms Normal sinus rhythm R/S in V1> : Consider Early Transition,Lead Placement, Normal Variant, or Posterior [place] - Age undetermined Nonspecific ST and T wave abnormality Abnormal ECG Confirmed by REGGIE CLEMENTS, BRAIN ([id number]), supervising editor news reel MOISE AGUIRRE ([id number]) on 05/11/2019 11:12:20 AM Referred By: Alexandrea Pirce Confirmed By:BRAIN PAREDES MD
--- NOTE | 2019-05-08 12:39 | ED.DCSUM_ITS ---
History of Present Illness Chief Complaint: Shortness of Breath Informant: Patient Onset: Days Context: Gradual Onset Timing: Waxes and wanes Current Severity: Moderate Maximum Severity: Moderate Narrative: Patient presents with shortness of breath. She is a history of COPD and wears 3 L of oxygen. She states when EMS arrived they noted that her O2 was not working correctly at home. They did give her a DuoNeb in route patient does feel that she is improving. Patient was seen earlier this month and diagnosed with a COPD exacerbation. She was treated with steroids and Levaquin. She states she was doing well till just a couple days ago when her symptoms worsened again. She has had some mild chest heaviness. She denies fever. She has been coughing up clear sputum only. - Past Medical History (1) Acute combined systolic (congestive) and diastolic (congestive) heart failure Status: Chronic (2) Non-ST elevation (NSTEMI) myocardial infarction Status: Chronic (3) Atherosclerosis of coronary artery bypass graft of [place] heart with angina pectoris Status: Chronic (4) Chronic obstructive pulmonary disease with hypoxia Status: Chronic (5) Essential (primary) hypertension Status: Chronic (6) ED (obstructive sleep apnea) Status: Chronic (7) History of coronary artery stent placement Status: Chronic Comment: PCI-ADE mid RCA with a 2.25 x 16 Promus Synergy Stent 12/26/18 Past Medical History - Allergies and Home Meds Allergies/Adverse Reactions: Allergies diphenhydramine [From Benadryl] Allergy (Verified 05/08/19 12:41) Unknown Penicillins Allergy (Verified 05/08/19 12:41) Swelling Primary Care Physician: Pili Acevedo [Primary Care Provider] - Prior records reviewed: Yes Surgical History: hysterectomy Smoking Status: Current some day smoker - Family History Maternal Family History: Family History (Last Reviewed 03/02/19 @ 07:57 by Stephany Yang) Mother COPD (chronic obstructive pulmonary disease) Family History: Reports: Asthma, COPD Paternal Family History: Family History (Last Reviewed 03/02/19 @ 07:57 by Stephany Yang) Mother COPD (chronic obstructive pulmonary disease) Family History: Reports: No pertinent history Review of Systems General: Denies: Chills, Fever Eyes: Denies: Visual changes - bilaterally ENT: Denies: Bilateral ear pain Cardiovascular: Reports: Chest pain Respiratory: Reports: Dyspnea, Cough, Sputum Gastrointestinal: Denies: Abdominal pain, Nausea, Vomiting, Diarrhea Musculoskeletal: Denies: Myalgias, Arthralgias, Extremity Pain Skin: Denies: Rash Neurological: Denies: Headache Allergy: Denies: Uticaria Physical Exam Vital Signs/Narrative: Vital Signs Temp Pulse Resp BP Pulse Ox 05/08/19 12:31 98.2 F 100 20 H 179/97 H 100 Inital Vital Signs reviewed: Yes General: Well nourished, Well developed Head: Normocephalic ENT: Moist mucous membranes Neck: Supple Cardiovascular: Regular rate, Regular rhythm Respiratory: Wheezing, - - Tight expiratory wheezes throughout with diminished air movement. Abdomen: Soft, Nontender Extremities: Nontender, No edema Skin: Normal color, No rash Neurological: Alert, Oriented x3 Psychological: Normal affect Diagnostic/Tx/Re-eval Impressions Chest X-Ray 05/08/19 12:40 IMPRESSION: Stable hyperexpansion with no acute finding. Electronically Signed: Han Meneses MD at 13:21 EST , Service support , 05/08/19 12:40 Chest 1 View (Portable) [RAD] Stat Laboratory Results 05/08/19 05/08/19 13:00 13:00 WBC 10.0 RBC 5.34 Hgb 15.4 H Hct 47.2 H MCV 88.4 MCH 28.8 MCHC 32.6 RDW Std Deviation 43.0 RDW Coeff of Ruy 13.2 Plt Count 243 MPV 10.1 Immature Gran % (Auto) 0.200 Neut % (Auto) 83.6 H Lymph % (Auto) 7.5 L [place] % (Auto) 5.3 Eos % (Auto) 2.7 Baso % (Auto) 0.7 Absolute Neuts (auto) 8.4 H Absolute Lymphs (auto) 0.75 L Nucleated RBC % 0 Sodium 138 Potassium 4.2 Chloride 99 Carbon Dioxide 32.0 Anion Gap 7 BUN 18 Creatinine 0.84 Estim Creat Clear Calc 54.22 Est GFR (MDRD) Af Amer 89 Est GFR (MDRD) Non-Af 73 BUN/Creatinine Ratio 21.6 H Glucose 146 H Calcium 9.2 Troponin I < 0.015 - EKG Initial EKG Interpretation: Sinus Rhythm - Sinus at 84. Anterior T wave inversion with minimal ST depression. This actually is slightly improved when compared to prior study from 04/17/2019. - Medical Decision Making Patient was given DuoNeb followed by 2 albuterol treatments here along with IV prednisone. On repeat evaluation lungs are still tight but she does have increased air movement. No evidence of infiltrate is noted on x-ray. She will be given a course of Levaquin. I will speak with hospitalist regarding admission. ED Disposition - Plan for ED Patient: Disposition: Acute Care Hospital [facility] Diagnosis: COPD exacerbation Referrals: Pili Acevedo [Primary Care Provider] -
--- NOTE | 2019-05-08 12:40 | RAD_ITS ---
STUDY: X-RAY CHEST REASON FOR EXAM: Female, 64 years old. Shortness of breath. TECHNIQUE: Single frontal view of the chest. COMPARISON: April 17, 2019 FINDINGS: Stable hyperexpansion. There is no demonstrated pleural abnormality. Normal size heart. Normal mediastinum and rafia. Normal visualized pulmonary arteries. Normal visualized aortic arch and descending thoracic aorta. Normal visualized thoracic spine. Normal visualized ribs, clavicles, and shoulders. There is no demonstrated abnormality of the visualized soft tissue structures of the upper abdomen. RAD/Chest 1 View (Portable) IMPRESSION: Stable hyperexpansion with no acute finding. Electronically Signed: Han Meneses MD at 13:21 EST , Service support ,
[2019-05-08] MEDS: 0.9% Normal Saline 1,000 ML 15 ML IV (12:57)
[2019-05-08] MEDS: MethylPREDNISolone 125 MG/2 ML Vial IV (12:57)
[2019-05-08 13:07] LABS: Absolute Lymphocyte Count 0.75 X10^3/uL (0.83-4.51); Absolute Neutrophil Count 8.4 X10^3/uL (2.0-7.7); Basophil# 0.07 X10^3/uL; Basophil% 0.7 % (0-1); Eosinophil# 0.27 X10^3/uL; Eosinophils% 2.7 % (0-5); Hematocrit 47.2 % (37-47); Hemoglobin 15.4 g/dL (12.0-15.0); Lymphocyte # 0.75 X10^3/ul (4.0); Lymphocyte % 7.5 % (19-41); Mean Corp Hgb Conc 32.6 g/dL (32-36); Mean Corpuscular Hgb 28.8 pg (27.0-32.0); Mean Corpuscular Volume 88.4 fL (81-99); Mean Platelet Vol. 10.1 fl (6.2-12.0); Monocyte# 0.53 X10^3/uL; Monocyte% 5.3 % (0-10); NRBC Flagged by Analyzer 0 % (0-5); Neutrophil % 83.6 % (47-70); Platelet Count 243 K/mm3 (150-450); RBC Distribution Width CV 13.2 % (11.6-14.6); Red Blood Count 5.34 M/mm3 (4.2-5.4)
[2019-05-08] MEDS: Ipratropium/Albuterol Sulfate 3 ML AMPUL.NEB INHALATION ×3 (13:10→23:16)
[2019-05-08] MEDS: Albuterol 2.5 MG/3 ML VIAL.NEB. INHALATION ×2 (13:11→14:31)
[2019-05-08 13:27] LABS: Anion Gap 7 (5-15); BUN 18 mg/dL (7-18); BUN/Creat Ratio 21.6 RATIO (10-20); Calcium,Total 9.2 mg/dL (8.5-10.1); Chloride 99 mmol/L (98-107); Creatinine, Serum 0.84 mg/dL (0.55-1.02); EST Glomerular Filtration Rate 73 mL/min (>60); Est Glom Filt Rate - Afr Amer 89 mL/min (>60); Estimated Creatinine Clearance 54.22 ml/min; Glucose 146 mg/dL (74-106); Potassium 4.2 mmol/L (3.5-5.1); Sodium Level 138 mmol/L (136-145)
--- NOTE | 2019-05-08 13:53 | HP.PCM_ITS ---
Problem List (1) COPD with exacerbation Status: Acute (2) Chronic obstructive pulmonary disease with hypoxia Status: Chronic (3) HLD (hyperlipidemia) Status: Chronic Qualifiers: Hyperlipidemia type: unspecified Qualified Code(s): E78.5 - Hyperlipidemia, unspecified (4) Chronic CHF Status: Chronic Qualifiers: Heart failure type: combined systolic and diastolic Qualified Code(s): I50.42 - Chronic combined systolic (congestive) and diastolic (congestive) heart failure (5) Former tobacco use Status: Chronic (6) Anxiety and depression Status: Chronic (7) ED (obstructive sleep apnea) Status: Chronic (8) Atherosclerosis of coronary artery bypass graft of [place] heart with angina pectoris Status: Chronic (9) History of coronary artery stent placement Status: Chronic Comment: PCI-ADE mid RCA with a 2.25 x 16 Promus Synergy Stent 12/26/18 (10) Essential (primary) hypertension Status: Chronic History of Present Illness Date of Admission: 05/08/19 Chief Complaint: Dsypnea The patient is a 64 y/o M w/ PMHx: Chronic Systolic and Diastolic CHF, Anxiety and Depression, HTN, HLD, ED, Hx NSTEMI, Chronic COPD w/ phonic hypoxic respiratory failure (3L NC), Anxiety and Depression, Former Tobacco use who presents to the [facility] ED on 05/08/19 with history of ongoing dyspnea, wheezing, cough with productive sputum with congestion, chest heaviness with pleuritic discomfort, worse with coughing fits noted been seen approximately 2 weeks prior with at that time oral Levaquin administration and steroid taper with clinical improvement however following the completion of her steroid taper she noted again onset coughing with wheezing and dyspnea prompting eventual return to the ED for evaluation with no onset of fever or chills. She denied any recent weight gain, lower extremity edema or orthopnea associated. Work-up in the ED included T 98.2, heart rate 100, BP 179/97, respiratory rate 20, and 100% on room air, CBC with WBC 10, hemoglobin 15.4, platelet 243 with left shift, BMP with glucose 146 otherwise not market appearing, troponin less than 0.015, chest x-ray with stable chronic COPD changes with no acute cardiopulmonary findings. In the ED patient ministered Solu-Medrol 125 mg IV x1, Levaquin 750 mg oral x1, DuoNeb and albuterol therapies as well as normal saline. Past Medical History Past Medical History (Chronic Problems): Chronic Problems (Last Reviewed 03/02/19 @ 07:57 by Stephany Yang) COPD exacerbation (Chronic) HLD (hyperlipidemia) (Chronic) Chronic CHF (Chronic) Former tobacco use (Chronic) Anxiety and depression (Chronic) DE (obstructive sleep apnea) (Chronic) Chronic obstructive pulmonary disease with hypoxia (Chronic) Acute combined systolic (congestive) and diastolic (congestive) heart failure (Chronic) Atherosclerosis of coronary artery bypass graft of [place] heart with angina pectoris (Chronic) History of coronary artery stent placement (Chronic 12/26/18) PCI-ADE mid RCA with a 2.25 x 16 Promus Synergy Stent 12/26/18 Non-ST elevation (NSTEMI) myocardial infarction (Chronic 12/26/18) Essential (primary) hypertension (Chronic) Medical History: Medical History (Last Reviewed 03/02/19 @ 07:57 by Stephany Yang) ED (obstructive sleep apnea) (Chronic) G47.33 Chronic obstructive pulmonary disease with hypoxia (Chronic) J44.9, R09.02 Acute combined systolic (congestive) and diastolic (congestive) heart failure (Chronic) I50.41 Atherosclerosis of coronary artery bypass graft of [place] heart with angina pectoris (Chronic) I25.709 Non-ST elevation (NSTEMI) myocardial infarction (Chronic) Onset Date: 12/26/18 I21.4 Essential (primary) hypertension (Chronic) I10 Anxiety F41.9 Allergies diphenhydramine [From Benadryl] Allergy (Verified 05/08/19 12:41) Unknown Penicillins Allergy (Verified 05/08/19 12:41) Swelling Home Medications: Ambulatory Orders Medication Instructions Recorded Albuterol Inhaler [Ventolin Hfa] 1 - 2 puff INHALATION Q4H PRN PRN 05/20/18 Sertraline HCl 25 mg PO DAILY 05/20/18 Budesonide/Formoterol 160/4.5 1 puff INHALATION BID 12/26/18 [Symbicort 160/4.5 Mcg Inhaler (SP)] cholecalciferol (vitamin D3) 1 capsule PO MO #4 cap 01/20/19 50,000 unit capsule pantoprazole 40 mg tablet,delayed 40 mg PO DAILY 02/15/19 release Aspirin [Low Dose Aspirin EC] 81 mg PO DAILY@0800 05/08/19 Atorvastatin Calcium 80 mg PO QHS 05/08/19 Lisinopril/Hydrochlorothiazide 1 tab PO DAILY 05/08/19 [Lisinopril-Hctz 10-12.5 mg Tab] Loratadine 10 mg PO DAILY 05/08/19 Metoprolol Tartrate [Lopressor 50 mg PO BID 05/08/19 (beta justin)] Ticagrelor [Brilinta] 90 mg PO BID 05/08/19 Umeclidinium Tranquillity Inhaler 1 inh INHALATION DAILY 05/08/19 [Incruse Ellipta] Surgical History: Surgical History (Last Reviewed 03/02/19 @ 07:57 by Stephany Yang) History of coronary artery stent placement (Chronic) Onset Date: 12/26/18 Z95.5 PCI-ADE mid RCA with a 2.25 x 16 Promus Synergy Stent 12/26/18 History of hysterectomy Z90.710 Surgical History: - - PCI x1, hysterectomy. 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 Tobacco Use: Non-smoker Alcohol: None Drugs: None - *Family History Maternal Family History: Family History (Last Reviewed 03/02/19 @ 07:57 by Stephany Yang) Mother COPD (chronic obstructive pulmonary disease) History Items: Asthma, COPD Paternal Family History: Family History (Last Reviewed 03/02/19 @ 07:57 by Stephany Yang) Mother COPD (chronic obstructive pulmonary disease) History Items: - - Patient notes that her father took chronic narcotics for unclear etiology, denies any history in her father of heart disease, diabetes or cancer. Review of Systems Constitutional: Reports: Anorexia, Malaise, Weakness, Fatigue. Denies: Chills, Fever, Weight Change HEENT: Denies: Head Aches, Sinus Congestion, Sinus Drainage Cardiovascular: Denies: Chest Pain, Palpitations Respiratory: Reports: Cough, Pleuritic Pain, Shortness of Breath, Shortness of breath at rest, Shortness of breath upon exertion, Sputum production, Wheezing Gastrointestinal: Denies: Abdominal Pain, Nausea, Vomiting Genitourinary: Denies: Dysuria Musculoskeletal: Reports: Back Pain, Joint Pain. Denies: Joint Tenderness Skin: Denies: Rash, Wounds Neurological: Denies: Numbness, Tingling, Focal weakness Psychiatric: Reports: Anxiety, Depression. Denies: Homicidal Ideations, Suicidal Ideations Hematologic/ Lymphatic: Reports: Easy Bruising, Easy Bleeding VTE Information - Inpt Only VTE Present on Admission: No VTE Mechan Device Prophylaxis: SCD's VTE Pharm Prophylaxis ordered?: Yes Subjective: Seated upright in ED bed, fatigued appearance, occasional coughing, ongoing wheezing but notes some improvement initial ED presentation. Objective: Physical Examination: General: awake, alert, oriented x 3 and cooperative, seated upright in the ED bed, fatigued and ill-appearing, no acute distress, does still have coughing fits and wheezing on examination but notes some improvement since initial ED presentation with aerosols. Skin: normal color, turgor, no icterus, cyanosis sipped occasional very staged ecchymoses. HEENT: AT/NC, EOMI, PERRLA, dry MM, no carotid bruits or JVD noted. Lungs: Severely diffusely diminished breath sounds, greater bases, diffuse end expiratory wheezing, no obvious rales or rhonchi, discomfort with deep inspiratory effort the anterior chest and reproducible discomfort with palpation of the chest. Heart: Regular rate and rhythm; no gallop, rub audible. Abdomen: soft, NTTP, ND, normal BS, no HSM. Extremities: no cyanosis, clubbing, mild bilateral nonpitting ankle edema. Neurological: patient awake, alert, oriented x 3; cognitive function intact; pupils equally reactive to light and accomodation; cranial nerves II-XII grossly normal, moving all 4 extremities, no focal deficits, strength severely global decrease secondary to acute presentation. Psychiatric: affect appears mildly flat, fatigued, ill-appearing, no acute evidence of depressive or anxiety feelings. - Physical Exam Vitals/I&O's: Vital Signs Temp Pulse Resp BP Pulse Ox 98.2 F 76 20 H 179/97 H 98 05/08/19 12:31 05/08/19 13:13 05/08/19 13:13 05/08/19 12:31 05/08/19 13:13 Oxygen Flow Rate (L/min) 3 Oxygen Delivery Method Nasal Cannula Weight: 150 lb Body Mass Index (BMI) 27.4 Laboratory Results 05/08/19 13:00: WBC 10.0, RBC 5.34, Hgb 15.4 H, Hct 47.2 H, MCV 88.4, MCH 28.8, MCHC 32.6, RDW Std Deviation 43.0, RDW Coeff of Ruy 13.2, Plt Count 243, MPV 10.1, Immature Gran % (Auto) 0.200, Neut % (Auto) 83.6 H, Lymph % (Auto) 7.5 L, [place] % (Auto) 5.3, Eos % (Auto) 2.7, Baso % (Auto) 0.7, Absolute Neuts (auto) 8.4 H, Absolute Lymphs (auto) 0.75 L, Nucleated RBC % 0 05/08/19 13:00: Sodium 138, Potassium 4.2, Chloride 99, Carbon Dioxide 32.0, Anion Gap 7, BUN 18, Creatinine 0.84, Estim Creat Clear Calc 54.22, Est GFR (MDRD) Af Amer 89, Est GFR (MDRD) Non-Af 73, BUN/Creatinine Ratio 21.6 H, Glucose 146 H, Calcium 9.2, Troponin I < 0.015 Current Medications Sodium Chloride () 1,000 mls @ 15 mls/hr IV .Q48H GREGORIA Last Admin: 05/08/19 12:57 Dose: 15 mls/hr Documented by: Assessment/Plan All Active Problems (Last Reviewed 03/02/19 @ 07:57 by Stephany Yang) COPD with exacerbation (Acute) COPD with exacerbation (Resolved) Hypoxemia (Resolved) Unstable angina (Resolved) The patient is a 64 y/o M w/ PMHx: Chronic Systolic and Diastolic CHF, Anxiety and Depression, HTN, HLD, ED, Hx NSTEMI, Chronic COPD w/ phonic hypoxic respiratory failure (3L NC), Anxiety and Depression, Former Tobacco use who presents to the [facility] ED on 05/08/19 with history of ongoing dyspnea, wheezing, cough with productive sputum with congestion, chest heaviness with pleuritic discomfort, worse with coughing fits noted been seen approximately 2 weeks prior with at that time oral Levaquin administration and steroid taper with clinical improvement however following the completion of her steroid taper she noted again onset coughing with wheezing and dyspnea prompting eventual return to the ED for evaluation with no onset of fever or chills. 1. Acute on chronic COPD exacerbation w/ Chronic Hypoxic Respiratory Failure: Work-up in the ED included T 98.2, heart rate 100, BP 179/97, respiratory rate 20, and 100% on room air, CBC with WBC 10, hemoglobin 15.4, platelet 243 with left shift, BMP with glucose 146 otherwise not market appearing, troponin less than 0.015, chest x-ray with stable chronic COPD changes with no acute cardiopulmonary findings. Will admit to [place], maintain on oxygen with wean as tolerated to home oxygen supplementation, continue ATC duonebs, PRN albuterol, IV methylprednisolone, HOB, IS parameters, maintain on IV Levaquin pending sputum cultures and respiratory viral panel. 2. Hyperglycemia: Admission glucose 146, likely secondary to steroid usage, HgbA1c requested. 3. Chronic Systolic and Diastolic CHF: Most recent ECOH 12/26/18 w/ normal LV size, EF 50%, mild segmental systolic dysfunction, stage I diastolic dysfunction. We will continue home aspirin, lisinopril, metoprolol, hydrochlorothiazide regimen as well as statin therapy. Judiciously hydrating given history, monitor daily weights. 4. CAD: sp PCI x 1, will continue patient home aspirin, Brilinta, statin, l isinopril, metoprolol regimen. 5. Hypertension: Continue home regimen including lisinopril, metoprolol, PRN hydralazine. 6. Hyperlipidemia: Continue home statin regimen. 7. Anxiety and depression: Continue patient home sertraline regimen. 8. GERD: Continue home PPI. 9. ED: Does not use CPAP or BiPAP. 10. DVT prophylaxis: SCDs, lovenox. 11. CODE status: Patient's significant and family are present, is healthcare power of business attorney, living will is in place. Discussed CODE status at length including difference between FULL code, DNR-CCA and DNR-CC status. Following discussions about the differences in these status, requested full CODE STATUS. Advanced Care Planning Face to Face Time: 16 minutes. Code Visit Inpatient E&M: 25219 Init Hosp L3 Procedures: 52083 Advncd Care Plan 30 Min
[2019-05-08] MEDS: levoFLOXacin 750 MG Tablet PO (14:46)
[2019-05-08] MEDS: Lisinopril 10 MG Tablet PO (17:32)
[2019-05-08] MEDS: hydroCHLOROthiazide 12.5mg 12.5 MG PO (17:32)
[2019-05-08] MEDS: 0.9% Normal Saline 1,000 ML 100 ML IV (17:32)
[2019-05-08 20:33] LABS: Magnesium 2.3 mg/dL (1.6-2.6)
[2019-05-08] MEDS: Metoprolol Tartrate 50 MG Tablet PO (22:00)
[2019-05-08] MEDS: Atorvastatin Calcium 80 MG Tablet PO (22:01)
[2019-05-08] MEDS: TICAGRELOR 90 MG TABLET PO (22:01)
[2019-05-08] MEDS: MELATONIN 3 MG TABLET PO (22:59)
[2019-05-09] VITALS (14 sets, daily range): BP systolic 115–144; BP diastolic 64–89; PULSE 73–111; RESP 16–20; TEMP 36.3–37.2; O2SAT 94–96
[2019-05-09] MEDS: guaiFENesin 10 ML UDC (200MG/10ML) 20 ML PO (02:52)
[2019-05-09] MEDS: Ipratropium/Albuterol Sulfate 3 ML AMPUL.NEB INHALATION ×6 (02:59→22:51)
[2019-05-09 07:32] LABS: Absolute Lymphocyte Count 0.63 X10^3/uL (0.83-4.51); Absolute Neutrophil Count 9.8 X10^3/uL (2.0-7.7); Basophil# 0.01 X10^3/uL; Basophil% 0.1 % (0-1); Hematocrit 41.3 % (37-47); Hemoglobin 13.4 g/dL (12.0-15.0); Lymphocyte # 0.63 X10^3/ul (4.0); Lymphocyte % 5.7 % (19-41); Mean Corp Hgb Conc 32.4 g/dL (32-36); Mean Corpuscular Hgb 27.9 pg (27.0-32.0); Mean Corpuscular Volume 85.9 fL (81-99); Mean Platelet Vol. 10.2 fl (6.2-12.0); Monocyte# 0.68 X10^3/uL; Monocyte% 6.1 % (0-10); NRBC Flagged by Analyzer 0 % (0-5); Neutrophil # 9.76 X10^3/uL (2.7-7.7); Neutrophil % 87.8 % (47-70); Platelet Count 236 K/mm3 (150-450); RBC Distribution Width CV 13.2 % (11.6-14.6); RBC Distribution Width SD 41.9 fl (35.1-43.9); Red Blood Count 4.81 M/mm3 (4.2-5.4); White Blood Count 11.1 K/mm3 (4.4-11.0)
[2019-05-09 07:46] LABS: Hemoglobin A1c 5.6 % (4.2-6.3)
[2019-05-09 07:54] LABS: Anion Gap 5 (5-15); BUN 12 mg/dL (7-18); BUN/Creat Ratio 17.5 RATIO (10-20); Calcium,Total 9.1 mg/dL (8.5-10.1); Chloride 100 mmol/L (98-107); Creatinine, Serum 0.69 mg/dL (0.55-1.02); EST Glomerular Filtration Rate 92 mL/min (>60); Est Glom Filt Rate - Afr Amer 111 mL/min (>60); Glucose 118 mg/dL (74-106); Potassium 3.4 mmol/L (3.5-5.1); Sodium Level 138 mmol/L (136-145)
[2019-05-09] MEDS: Pantoprazole Sodium 40 MG Tablet PO (08:56)
[2019-05-09] MEDS: Aspirin E.C. 81 MG Tablet PO (08:56)
[2019-05-09] MEDS: Enoxaparin 40 MG/0.4 ML Syringe SC (08:56)
[2019-05-09] MEDS: 0.9% Saline Lock 10 ML Syringe IV ×3 (08:57→21:29)
[2019-05-09] MEDS: levoFLOXacin IV 500 MG/100 ML BAG 100 MG IV (10:14)
[2019-05-09] MEDS: TICAGRELOR 90 MG TABLET PO ×2 (10:15→21:29)
[2019-05-09] MEDS: Sertraline 50 MG Tablet 25 MG PO (10:15)
[2019-05-09] MEDS: Lisinopril 10 MG Tablet PO (10:15)
[2019-05-09] MEDS: Metoprolol Tartrate 50 MG Tablet PO ×2 (10:16→21:29)
[2019-05-09] MEDS: hydroCHLOROthiazide 12.5mg 12.5 MG PO (10:16)
--- NOTE | 2019-05-09 14:30 | CASEMGMT ---
RN CM Face to Face with patient for initial transition planning/care coordination assessment. RN CM introduced self and role at [facility]. Patient lying in bed, alert and oriented. Patient willing to participate in assessment and is able to answer all questions appropriately. Care providers, pharmacy, and demographics verified. Patient wishes to discharge home, denies need for home health at this time. Patient states she has no further needs or concerns at this time. CM to follow for discharge planning needs that may arise. PCP: Pili Stevens Specialists: [facility]; [place] supervisor press room Preferred Pharmacy: [facility] Insurance: [facility] Prescription Benefit: yes Living Will/HPOA: yes, Gus Romano LNOK: and son Living Arrangements: Patient lives with son and in 1 story home. Patient independent at home. Transportation: son or DME/HHC: Patient has shower chair, raised toilet, grab bars, Oxygen at 3lpm concentrator and portable through [employer] [facility] Disposition Plan: Patent to discharge home with family support and follow-up plans in place. Lucrecia OCHOA, RN, CM
--- NOTE | 2019-05-09 14:59 | PN_ITS ---
Reason for Visit: COPD Subjective: Breathing better. Concerned that she is on Ellipta and Symbicort. Vitals/I&O's: Vital Signs Temp Pulse Resp BP Pulse Ox 37.1 C 111 H 16 144/89 H 96 05/09/19 10:00 05/09/19 11:15 05/09/19 11:15 05/09/19 10:16 05/09/19 10:00 Oxygen Flow Rate (L/min) 3 Oxygen Delivery Method Nasal Cannula Weight: 72.1 kg Body Mass Index (BMI) 29.5 Intake and Output for Last 24 Hours 05/07/19 05/08/19 05/09/19 23:59 23:59 23:59 Intake Total 388.5 / 388.5 1700 / 1700 Output Total 1100 / 1100 Balance 388.5 / 388.5 600 / 600 General: Alert, Cooperative, No apparent distress HEENT: Atraumatic, Normocephalic Oral: Moist Mucosa, No Gingival or Mucosal Lesions/ Ulcerations Neck: No Nodes, Trachea Midline Lungs: Diminished, Wheezes Cardiovascular: Regular rate, Regular Rhythm, Normal S1, Normal S2 Abdomen: Bowel Sounds Present, Soft, Non Tender, Non-Distended, No Hepato- splenomegaly Extremities: No edema, No Calf Tenderness Skin: No rashes, No breakdown Psych/Mental Status: Normal Affect, Appropriate Microbiology Past 72 Hours 05/08/19 16:10 Mucosa - Nasopharyngeal Respiratory Panel (PCR) - Final Laboratory Results 05/08/19 13:00: Magnesium 2.3 05/09/19 06:40: WBC 11.1 H, RBC 4.81, Hgb 13.4, Hct 41.3, MCV 85.9, MCH 27.9, MCHC 32.4, RDW Std Deviation 41.9, RDW Coeff of Ruy 13.2, Plt Count 236, MPV 10.2, Immature Gran % (Auto) 0.300, Neut % (Auto) 87.8 H, Lymph % (Auto) 5.7 L, Granite % (Auto) 6.1, Eos % (Auto) 0.0, Baso % (Auto) 0.1, Absolute Neuts (auto) 9.8 H, Absolute Lymphs (auto) 0.63 L, Nucleated RBC % 0 05/09/19 06:40: Sodium 138, Potassium 3.4 L, Chloride 100, Carbon Dioxide 33.0 H , Anion Gap 5, BUN 12, Creatinine 0.69, Estim Creat Clear Calc 66.00, Est GFR (MDRD) Af Amer 111, Est GFR (MDRD) Non-Af 92, BUN/Creatinine Ratio 17.5, Glucose 118 H, Calcium 9.1 05/09/19 06:40: Hemoglobin A1c 5.6 Current Medications Acetaminophen (Tylenol) 650 mg PO Q6H PRN PRN PRN Reason: Non-cardiac pain (4-02/16) Hydrocodone Bitart/Acetaminophen ([place] 5mg-325mg) 1 - 2 tablet PO Q4H PRN PRN PRN Reason: Pain Score 4-02/16 Al Hydroxide/Mg Hydroxide (Mylanta Ii) 15 - 30 ml PO Q4H PRN PRN PRN Reason: INDIGESTION Albuterol Sulfate (Ventolin Aerosols) 2.5 mg INHALATION Q2H PRN PRN PRN Reason: dyspnea, wheezing Albuterol/Ipratropium (Duoneb) 3 ml INHALATION Q4H.RT [facility] Last Admin: 05/09/19 11:15 Dose: 3 ml Documented by: Aspirin (Ecotrin) 81 mg PO DAILY@0800 [facility] Last Admin: 05/09/19 08:56 Dose: 81 mg Documented by: Atorvastatin Calcium (Lipitor) 80 mg PO QHS [facility] Last Admin: 05/08/19 22:01 Dose: 80 mg Documented by: Enoxaparin Sodium (Lovenox) 40 mg SC DAILY [facility] Last Admin: 05/09/19 08:56 Dose: 40 mg Documented by: Glucagon () 1 mg IM .X1 PRN PRN Reason: Hypoglycemia Guaifenesin (Robitussin) 20 ml PO Q4H PRN PRN PRN Reason: COUGH Last Admin: 05/09/19 02:52 Dose: 20 ml Documented by: Hydralazine HCl (Apresoline Iv) 10 mg IV Q4H PRN PRN PRN Reason: SBP > 160 Hydrochlorothiazide () 12.5 mg PO DAILY [facility] Last Admin: 05/09/19 10:16 Dose: 12.5 mg Documented by: Levofloxacin (Levaquin Iv) 500 mg in 100 mls @ 100 mls/hr IV Q24 [facility] Stop: 05/13/19 10:59 Last Infusion: 05/09/19 11:35 Dose: Infused Documented by: Dextrose (Dextrose 10%-Water) 250 mls @ 999 mls/hr IV .Q16M PRN; Protocol PRN Reason: HYPOGLYCEMIA Lisinopril (Zestril) 10 mg PO DAILY [facility] Last Admin: 05/09/19 10:15 Dose: 10 mg Documented by: Magnesium Hydroxide (Milk Of Magnesia) 30 ml PO DAILY PRN PRN Reason: Constipation Melatonin (Melatonin) 3 mg PO QHS PRN PRN PRN Reason: INSOMNIA Last Admin: 05/08/19 22:59 Dose: 3 mg Documented by: Methylprednisolone (Solu-Medrol) 40 mg IV Q8 [facility] Last Admin: 05/09/19 08:56 Dose: 40 mg Documented by: Metoprolol Tartrate (Lopressor (Beta [place])) 50 mg PO BID [facility] Last Admin: 05/09/19 10:16 Dose: 50 mg Documented by: Morphine Sulfate () 1 - 2 mg IV Q4H PRN PRN PRN Reason: Pain Score 1-10/10 Nitroglycerin (Nitrostat) 0.4 mg SUBLINGUAL Q5M PRN PRN Reason: CARDIAC/CHEST PAIN Ondansetron HCl (Zofran) 4 mg IV Q8H PRN PRN PRN Reason: NAUSEA/VOMITING Pantoprazole Sodium (Protonix) 40 mg PO DAILY [facility] Last Admin: 05/09/19 08:56 Dose: 40 mg Documented by: Sertraline HCl (Zoloft) 25 mg PO DAILY [facility] Last Admin: 05/09/19 10:15 Dose: 25 mg Documented by: Sodium Chloride () 10 - 40 ml IV UD PRN PRN Reason: SALINE FLUSH Last Admin: 05/09/19 08:57 Dose: 10 ml Documented by: Sodium Chloride ([place] Nasal [place]) 2 spray NASAL TID PRN PRN PRN Reason: NASAL DRYNESS Throat Lozenges (Cepacol Sore Throat Lozenge) 1 lozenge MUCOUS MEM Q2H PRN PRN PRN Reason: Sore throat or cough Ticagrelor (Brilinta) 90 mg PO BID [facility] Last Admin: 05/09/19 10:15 Dose: 90 mg Documented by: STROKE Vital Signs/Narrative: Vital Signs Pulse Resp 05/09/19 11:15 111 H 16 Medical Necessity - Tobacco Use Smoking Status: Former smoker Tobacco Use: Cigarettes Assessment/Plan All Active Problems (Last Reviewed 03/02/19 @ 07:57 by Stephany Yang) COPD with exacerbation (Acute) COPD with exacerbation (Resolved) Hypoxemia (Resolved) Unstable angina (Resolved) 1. AECOPD * slightly improved * wean steroids and monitor * continue BDs * reviewed Dr. Heart's office note with patient. No Ellipta on meds, but Symbicort. Told that she should continue Symbicort on discharge and follow up with Dr. Heart. * Patient would like nebulizer upon discharge * Patient concerned about getting infections all the time. Reviewed infectious work up with her and told her that it has all been negative, therefore, no need for any treatment at this time. * Would anticipate discharge with prednisone burst upon discharge 2. HTN * elevated * continue lisinopril and HCTZ 3. VTE prophylaxis: LMWH Code Visit Inpatient E&M: 06845 Subs Hosp L2
[2019-05-09] MEDS: Sodium Chloride 0.65% 1 SPRAY SPRAY.BTL 2 SPRAY NASAL (15:08)
[2019-05-09] MEDS: Atorvastatin Calcium 80 MG Tablet PO (21:29)
[2019-05-09] MEDS: MELATONIN 3 MG TABLET PO (21:45)
[2019-05-10 03:46] VITALS: BP 102/73; PULSE 79; RESP 14; TEMP 36.8; O2SAT 95
[2019-05-10 06:32] LABS: Absolute Lymphocyte Count 0.54 X10^3/uL (0.83-4.51); Absolute Neutrophil Count 10.5 X10^3/uL (2.0-7.7); Basophil# 0.01 X10^3/uL; Basophil% 0.1 % (0-1); Lymphocyte # 0.54 X10^3/ul (4.0); Lymphocyte % 4.6 % (19-41); Mean Corp Hgb Conc 32.5 g/dL (32-36); Mean Corpuscular Hgb 28.1 pg (27.0-32.0); Mean Corpuscular Volume 86.4 fL (81-99); Mean Platelet Vol. 10.3 fl (6.2-12.0); Monocyte# 0.58 X10^3/uL; NRBC Flagged by Analyzer 0 % (0-5); Neutrophil # 10.46 X10^3/uL (2.7-7.7); POSITIVE DIFFERENTIAL YES; Platelet Count 237 K/mm3 (150-450); RBC Distribution Width CV 13.7 % (11.6-14.6); RBC Distribution Width SD 43.2 fl (35.1-43.9); Red Blood Count 4.63 M/mm3 (4.2-5.4); White Blood Count 11.6 K/mm3 (4.4-11.0)
[2019-05-10 06:52] LABS: Differential Indicated SCAN CRITERIA MET
[2019-05-10 07:08] VITALS: PULSE 78; RESP 20; O2SAT 95
[2019-05-10] MEDS: Ipratropium/Albuterol Sulfate 3 ML AMPUL.NEB INHALATION ×2 (07:08→11:30)
[2019-05-10 07:10] LABS: Anion Gap 6 (5-15); BUN 21 mg/dL (7-18); BUN/Creat Ratio 31.6 RATIO (10-20); Calcium,Total 9.6 mg/dL (8.5-10.1); Chloride 104 mmol/L (98-107); Creatinine, Serum 0.66 mg/dL (0.55-1.02); EST Glomerular Filtration Rate 95 mL/min (>60); Est Glom Filt Rate - Afr Amer 115 mL/min (>60); Glucose 132 mg/dL (74-106); Potassium 3.7 mmol/L (3.5-5.1); Sodium Level 141 mmol/L (136-145)
[2019-05-10 08:02] LABS: Differential Comment SCANNED
[2019-05-10 09:17] VITALS: BP 133/66; PULSE 99; RESP 16; TEMP 36.8; O2SAT 94
[2019-05-10 09:27] VITALS: PULSE 99
[2019-05-10] MEDS: hydroCHLOROthiazide 12.5mg 12.5 MG PO (09:27)
[2019-05-10] MEDS: Aspirin E.C. 81 MG Tablet PO (09:27)
[2019-05-10] MEDS: Metoprolol Tartrate 50 MG Tablet PO (09:27)
[2019-05-10] MEDS: TICAGRELOR 90 MG TABLET PO (09:27)
[2019-05-10] MEDS: Enoxaparin 40 MG/0.4 ML Syringe SC (09:28)
[2019-05-10] MEDS: Lisinopril 10 MG Tablet PO (09:28)
[2019-05-10] MEDS: Sertraline 50 MG Tablet 25 MG PO (09:28)
[2019-05-10] MEDS: Pantoprazole Sodium 40 MG Tablet PO (09:28)
[2019-05-10] MEDS: levoFLOXacin IV 500 MG/100 ML BAG 100 MG IV (09:34)
--- NOTE | 2019-05-10 10:51 | DCINST_ITS ---
- Discharge Diagnoses Current Active Problems: Current Active and Chronic Problems (Last Reviewed 03/02/19 @ 07:57 by Stephany Yang) COPD exacerbation (Chronic) HLD (hyperlipidemia) (Chronic) Chronic CHF (Chronic) Former tobacco use (Chronic) Anxiety and depression (Chronic) You will use the following diet at home:: No restrictions Your food should be the consistency of: Regular Your liquids should be the consistency of: Regular/Thin Discharge Activity: Return to Normal Activity Weight Bearing Status: Full weight bearing Allergies/Adverse Reactions: Allergies diphenhydramine [From Benadryl] Allergy (Verified 05/08/19 15:31) Rash Penicillins Allergy (Verified 05/08/19 12:41) Swelling Medications to take at Discharge Sertraline HCl 25 mg PO DAILY 05/20/18 Budesonide/Formoterol 160/4.5 [Symbicort 160/4.5 Mcg Inhaler (SP)] 1 puff INHALATION BID 12/26/18 cholecalciferol (vitamin D3) 50,000 unit capsule 1 capsule PO MO #4 cap 01/20/19 pantoprazole 40 mg tablet,delayed release 40 mg PO DAILY 02/15/19 Aspirin [Low Dose Aspirin EC] 81 mg PO DAILY@0800 05/08/19 Atorvastatin Calcium 80 mg PO QHS 05/08/19 Lisinopril/Hydrochlorothiazide [Lisinopril-Hctz 10-12.5 mg Tab] 1 tab PO DAILY 05/08/19 Loratadine 10 mg PO DAILY 05/08/19 Metoprolol Tartrate [Lopressor (beta justin)] 50 mg PO BID 05/08/19 Ticagrelor [Brilinta] 90 mg PO BID 05/08/19 Umeclidinium [place] Inhaler [Incruse Ellipta Inhaler] 1 inh INHALATION DAILY 05/08/19 Acetaminophen [Tylenol Tablet] 650 mg PO Q6H PRN PRN tab 05/10/19 Albuterol Inhaler [Ventolin Hfa] 1 - 2 puff INHALATION [id number] PRN #1 inhaler 05/10/19 Aspirin E.C. [Ecotrin] 81 mg PO DAILY@0800 tab 05/10/19 Atorvastatin Calcium [Lipitor] 80 mg PO QHS tab 05/10/19 Levofloxacin [Levaquin] 500 mg PO DAILY #5 tab 05/10/19 Melatonin 3 mg PO QHS PRN PRN tab 05/10/19 Metoprolol Tartrate [Lopressor (beta justin)] 50 mg PO BID tab 05/10/19 Prednisone 10 mg PO UD #30 tab 05/10/19 Ticagrelor [Brilinta] 90 mg PO BID tab 05/10/19 hydroCHLOROthiazide [Hydrochlorothiazide] 12.5 mg PO DAILY cap 05/10/19 The following prescriptions were given: Levofloxacin [Levaquin] 500 mg PO DAILY #5 tab Transmission Status: Pending to [facility] Prednisone 10 mg PO UD #30 tab Prescription Printed Albuterol Inhaler [Ventolin Hfa] 1 - 2 puff INHALATION [id number] PRN #1 inhaler PRN Reason: Sob &/Or Wheezing Transmission Status: Pending to [facility] Primary Care Physician: Pili Acevedo [Primary Care Provider] - Test Results: Test results from this visit will be discussed in further detail at your follow- up appointment, if applicable. Please Follow Up With: Deidre Ventura, DISASTER RESPONSE DIRECTOR-C
[2019-05-10] MEDS: 0.9% Saline Lock 10 ML Syringe IV (11:27)
[2019-05-10] MEDS: MethylPREDNISolone 125 MG/2 ML Vial 60 MG IV (11:27)
[2019-05-10 11:30] VITALS: PULSE 75; RESP 16
--- NOTE | 2019-05-12 10:11 | DS.PCM_ITS ---
Discharge Date and Diagnosis Date of Admission: 05/08/19 Date of Discharge: 05/10/19 - Primary Discharge Diagnosis #1 acute exacerbation of COPD #2 essential hypertension #3 coronary artery disease - Secondary Discharge Diagnosis Chronic Problems (Last Reviewed 03/02/19 @ 07:57 by Stephany Yang) COPD exacerbation (Chronic) HLD (hyperlipidemia) (Chronic) Chronic CHF (Chronic) Former tobacco use (Chronic) Anxiety and depression (Chronic) ED (obstructive sleep apnea) (Chronic) Chronic obstructive pulmonary disease with hypoxia (Chronic) Acute combined systolic (congestive) and diastolic (congestive) heart failure (Chronic) 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 Patient has a history of COPD and wears home O2. Evaluation in the emergency room included a chest x-ray which showed no acute infiltrates, patient's white blood count was normal, chemistry profile showed a glucose of 146. Patient was admitted to PCU, given IV corticosteroids and aggressive aerosol treatments, and patient improved during her hospital stay. On 05/10/2019, patient was seen and examined: On examination she appeared in good health and spirits. Vital signs as documented. Skin warm and dry and without overt rashes. Neck without JVD. Lungs clear. Heart exam notable for regular rhythm, normal sounds and absence of murmurs, rubs or gallops. Abdomen unremarkable and without evidence of organomegaly, masses, or abdominal aortic enlargement. Extremities nonedematous. Neuro: Cranial nerves II through XII are grossly intact, no focal motor deficits were noted, sensation to light touch and pinprick is intact. Psych: Patient is alert and oriented x3, she does not appear anxious or depressed On 05/10/2019, patient was seen and examined and felt to be in stable condition for discharge home. - Physical Exam Vitals/I&O's: Vital Signs Temp Pulse Resp BP Pulse Ox 98.3 F 75 16 133/66 H 94 05/10/19 09:17 05/10/19 11:30 05/10/19 11:30 05/10/19 09:17 05/10/19 09:17 Oxygen Flow Rate (L/min) 3 Oxygen Delivery Method Nasal Cannula Weight: 73.9 kg Body Mass Index (BMI) 29.5 Intake and Output for Last 24 Hours 05/10/19 05/11/19 05/12/19 23:59 23:59 23:59 Intake Total 460 / 460 Output Total 0 / 0 Balance 460 / 460 Microbiology Past 72 Hours 05/08/19 09:00 Sputum, Expectorated/Coughed Gram Stain - Final 05/08/19 09:00 Sputum, Expectorated/Coughed Respiratory Culture - Final Discharge Activity: Return to Normal Activity Weight Bearing Status: Full weight bearing Home Medications: Medications to take at Discharge Sertraline HCl 25 mg PO DAILY 05/20/18 Budesonide/Formoterol 160/4.5 [Symbicort 160/4.5 Mcg Inhaler (SP)] 1 puff INHALATION BID 12/26/18 cholecalciferol (vitamin D3) 50,000 unit capsule 1 capsule PO MO #4 cap 01/20/19 pantoprazole 40 mg tablet,delayed release 40 mg PO DAILY 02/15/19 Aspirin [Low Dose Aspirin EC] 81 mg PO DAILY@0800 05/08/19 Atorvastatin Calcium 80 mg PO QHS 05/08/19 Lisinopril/Hydrochlorothiazide [Lisinopril-Hctz 10-12.5 mg Tab] 1 tab PO DAILY 05/08/19 Loratadine 10 mg PO DAILY 05/08/19 Metoprolol Tartrate [Lopressor (beta justin)] 50 mg PO BID 05/08/19 Ticagrelor [Brilinta] 90 mg PO BID 05/08/19 Umeclidinium [place] Inhaler [Incruse Ellipta Inhaler] 1 inh INHALATION DAILY 05/08/19 Acetaminophen [Tylenol Tablet] 650 mg PO Q6H PRN PRN tab 05/10/19 Albuterol Inhaler [Ventolin Hfa] 1 - 2 puff INHALATION [id number] PRN #1 inhaler 05/10/19 Aspirin E.C. [Ecotrin] 81 mg PO DAILY@0800 tab 05/10/19 Atorvastatin Calcium [Lipitor] 80 mg PO QHS tab 05/10/19 Levofloxacin [Levaquin] 500 mg PO DAILY #5 tab 05/10/19 Melatonin 3 mg PO QHS PRN PRN tab 05/10/19 Metoprolol Tartrate [Lopressor (beta justin)] 50 mg PO BID tab 05/10/19 Prednisone 10 mg PO UD #30 tab 05/10/19 Ticagrelor [Brilinta] 90 mg PO BID tab 05/10/19 hydroCHLOROthiazide [Hydrochlorothiazide] 12.5 mg PO DAILY cap 05/10/19 Following Prescrptions Were Given to Patient: Levofloxacin [Levaquin] 500 mg PO DAILY #5 tab Transmission Status: Received by [facility] Prednisone 10 mg PO UD #30 tab Prescription Printed Albuterol Inhaler [Ventolin Hfa] 1 - 2 puff INHALATION [id number] PRN #1 inhaler PRN Reason: Sob &/Or Wheezing Transmission Status: Received by [facility] Primary Care Physician: Pili Acevedo [Primary Care Provider] - Please Follow Up With: Deidre Ventura NP-C Disposition: Home Minutes spent on discharge:: 32 Patient Condition:: Stable Medical Necessity - Tobacco Use Smoking Status: Former smoker Tobacco Use: Cigarettes Meaningful Use Info Meaningful Use Diagnoses (Choose all that apply): None applicable Code Visit Inpatient E&M: 57893 Disch Hosp
--- NOTE | 2019-05-12 15:35 | CASEMGMT ---
ESTELA SCHMITZ Discharge F/U Phone Call LACE: 12 Strata: 4 Discharge date: 05/10/19 Call date: 05/12/19 Call time: [phone] Admission dx: Acute COPD exacerbation Pt states that she has been doing well since 'those breathing treatments really helped.' Pt states no questions regarding discharge instructions/medications at this time. Pt states she would like to get some hose for her legs because 'those really helped here.' This RN AINSLEY referred her to her pharmacy for hose and for her to discuss with her PCP, voices understanding. Pt states she is also interested in getting a nebulizer at home and this RN CM advised her to f/u with PCP for this as well. Pt states she has PCP appt on 05/17/19 and plans to keep. Pt states no suggestions for [facility] at this time. Pt voices no further questions/concerns/needs at this time. [place] ESTELA SCHMITZ
== END 2019-05-10 12:15 | disposition home or self-care (01) | DRG 140 ==
LOC: ED 13:40 → PCU 05-09 07:09
PROVIDERS: Admitting Provider Family Medicine; Emergency Provider Emergency Medicine; Referring Provider Family Medicine; Visit Provider Internal Medicine
DX: J44.1 Chronic obstructive pulmonary disease with (acute) exacerbation (principal); J96.11 Chronic respiratory failure with hypoxia; I11.0 Hypertensive heart disease with heart failure; I50.42 Chronic combined systolic (congestive) and diastolic (congestive) heart failure; K21.9 Gastro-esophageal reflux disease without esophagitis; I25.10 Atherosclerotic heart disease of native coronary artery without angina pectoris; E78.5 Hyperlipidemia, unspecified; I25.2 Old myocardial infarction; F32.9 Major depressive disorder, single episode, unspecified; F41.9 Anxiety disorder, unspecified; G47.33 Obstructive sleep apnea (adult) (pediatric); Z79.899 Other long term (current) drug therapy; Z95.5 Presence of coronary angioplasty implant and graft; Z87.891 Personal history of nicotine dependence; Z99.81 Dependence on supplemental oxygen; Z79.82 Long term (current) use of aspirin
CPT/HCPCS: 36415; 71045; 80048; 83036; 83735; 84484; 85025; 87070; 87205; 87633; 93005; 94640; 96361; 96365; 96366; 96372; 96375; 96376; 99218; 99251; 99285; J7030; A4216; G0378; G0463

== ENCOUNTER 2019-06-12 20:40 | Inpatient (IN) | payer MEDICAID, SELFPAY ==
[2019-05-08 15:37] VITALS: BMI 29.5
[2019-06-12] VITALS (7 sets, daily range): BP systolic 121–165; BP diastolic 80–115; PULSE 94–113; RESP 14–20; TEMP 36.5–36.6; O2SAT 93–96; BMI 32.1
--- NOTE | 2019-06-12 20:55 | EKG12_ITS ---
Test Reason : DYSRHYTHMIA Blood Pressure : / mmHG Vent. Rate : 096 BPM Atrial Rate : 096 BPM P-R Int : 180 ms QRS Dur : 074 ms QT Int : 348 ms P-R-T Axes : 082 054 089 degrees QTc Int : 439 ms Normal sinus rhythm Posterior [place], age undetermined, cannot be excluded Nonspecific ST and T wave abnormality Abnormal ECG Confirmed by REGGIE CLEMENTS, BRAIN ([id number]), health editor CINTHYA DIEZ ([id number]) on 06/14/2019 9:02:04 AM Referred By: Pili Alcocer Confirmed By:BRAIN PAREDES MD
[2019-06-12] MEDS: Ipratropium/Albuterol Sulfate 3 ML AMPUL.NEB INHALATION (21:19)
[2019-06-12 21:22] LABS: Absolute Lymphocyte Count 1.64 X10^3/uL (0.83-4.51); Absolute Neutrophil Count 5.4 X10^3/uL (2.0-7.7); Basophil# 0.07 X10^3/uL; Basophil% 0.8 % (0-1); Eosinophil# 0.34 X10^3/uL; Hematocrit 44.5 % (37-47); Hemoglobin 14.2 g/dL (12.0-15.0); Lymphocyte # 1.64 X10^3/ul (4.0); Lymphocyte % 19.4 % (19-41); Mean Corp Hgb Conc 31.9 g/dL (32-36); Mean Corpuscular Hgb 28.2 pg (27.0-32.0); Mean Corpuscular Volume 88.5 fL (81-99); Mean Platelet Vol. 9.7 fl (6.2-12.0); Monocyte# 0.96 X10^3/uL; Monocyte% 11.3 % (0-10); NRBC Flagged by Analyzer 0 % (0-5); Neutrophil # 5.43 X10^3/uL (2.7-7.7); Neutrophil % 64.1 % (47-70); Platelet Count 258 K/mm3 (150-450); RBC Distribution Width CV 13.4 % (11.6-14.6); RBC Distribution Width SD 43.5 fl (35.1-43.9); Red Blood Count 5.03 M/mm3 (4.2-5.4); White Blood Count 8.5 K/mm3 (4.4-11.0)
[2019-06-12] MEDS: MethylPREDNISolone 125 MG/2 ML Vial IV (21:22)
[2019-06-12] MEDS: 0.9% Normal Saline 1,000 ML 999 ML IV (21:22)
--- NOTE | 2019-06-12 21:35 | RAD_ITS ---
STUDY: X-RAY CHEST REASON FOR EXAM: Female, 64 years old. SOB TECHNIQUE: PA and lateral views of the chest. COMPARISON: May 08, 2019 FINDINGS: There is hyperinflation of the lungs consistent with chronic obstructive lung disease (COPD). Cystic emphysematous changes are present in the bilateral upper lobes. No consolidation is seen. There is no demonstrated pleural abnormality. Interstitial scarring reidentified in the right lower lobe. Normal size heart. Normal mediastinum and rafia. Stable remaining visualized osseous and mediastinal structures. RAD/Chest PA and Lateral IMPRESSION: COPD/emphysema Electronically Signed: Stan Edge MD at 22:01 EST , Service support ,
[2019-06-12 21:49] LABS: Anion Gap 3 (5-15); BUN 15 mg/dL (7-18); BUN/Creat Ratio 21.5 RATIO (10-20); Calcium,Total 9.5 mg/dL (8.5-10.1); Chloride 104 mmol/L (98-107); EST Glomerular Filtration Rate 90 mL/min (>60); Est Glom Filt Rate - Afr Amer 109 mL/min (>60); Estimated Creatinine Clearance 62.07 ml/min; Glucose 129 mg/dL (74-106); Potassium 3.9 mmol/L (3.5-5.1); Sodium Level 138 mmol/L (136-145)
[2019-06-12 21:54] LABS: Lactic Acid 0.8 mmol/L (0.4-1.9)
[2019-06-12] MEDS: Albuterol 2.5 MG/3 ML VIAL.NEB. INHALATION ×3 (22:09→22:27)
--- NOTE | 2019-06-12 22:37 | ED.VISSUMM ---
- ER Visit Summary Date of Service: 06/12/19 Chief Complaint: Shortness of breath History of Present Illness: The patient is a 64 F who goes to the [facility] and also sees Dr. Heart. She has a history of COPD. She is on 3 L of home O2. She reports that she does not have a nebulizer at home. Patient reports her shortness of breath began 4 to 5 days ago. Its moderate currently and severe at worst. Is worsened by exertion and coughing. Is minimally relieved with her albuterol MDI. Patient reports that she has had a cough for the past 2 weeks. Is productive green sputum without blood. She has had chills, but no fever. She reports that she has chest pain from coughing. She denies any other complaints. Physical Examination: Vitals: 97.9, 165/115, 113, 20, 93% on 3 L nasal cannula which is her home O2. General: Well-nourished and well-developed. Head: Normocephalic atraumatic. Neck: Supple, no lymphadenopathy. No JVD. Nontender. Cardiovascular: Tachycardic regular rhythm. No murmurs. Respiratory: Mild respiratory distress. She is wheezing bilaterally with decreased air movement. Abdominal: Soft, nontender, nondistended, normal bowel sounds. No guarding, rebound, or peritoneal signs. Back: Nontender. Extremities: Nontender, no edema. Skin: Normal color, no rash. Neurologic: Alert and oriented ?3. Cranial nerves II through XII are intact. Normal strength and sensation. Psych: Normal affect. Test Results: EKG is sinus at [address] changes. Is unchanged from April 2019. No troponin 0 0.048. Chem-7 is remarkable glucose 129. CBC shows monocytes of 11. Chest x-ray shows chronic changes. Emergency Department Course and Treatment: Patient had an IV placed. She was given a liter of normal saline. She was given Solu-Medrol IV. She was given albuterol and Atrovent aerosols. She is resting more comfortably. However, the patient does still appear dyspneic. Treatment Plan: Patient was discussed with Dr. Faulkner. She will be admitted to the hospital for further evaluation and treatment. Disposition: Admitted in improved condition. Impression: 1. COPD exacerbation. 2. Indeterminate troponin. This note was generated with [employer]amboo[employer] software. It may contain incorrect words, spelling, and punctuation that were not noted in review of the chart prior to signing ED Disposition - Plan for ED Patient: Disposition: Acute Care Hospital [facility]
--- NOTE | 2019-06-12 22:46 | PCM.HP.STD ---
Problem List (1) COPD exacerbation Status: Acute (2) HLD (hyperlipidemia) Status: Chronic Qualifiers: Hyperlipidemia type: unspecified Qualified Code(s): E78.5 - Hyperlipidemia, unspecified (3) Chronic CHF Status: Chronic Qualifiers: Heart failure type: combined systolic and diastolic Qualified Code(s): I50.42 - Chronic combined systolic (congestive) and diastolic (congestive) heart failure (4) Former tobacco use Status: Chronic (5) Anxiety and depression Status: Chronic (6) ED (obstructive sleep apnea) Status: Chronic (7) Chronic obstructive pulmonary disease with hypoxia Status: Chronic (8) Acute combined systolic (congestive) and diastolic (congestive) heart failure Status: Chronic (9) Atherosclerosis of coronary artery bypass graft of [place] heart with angina pectoris Status: Chronic (10) History of coronary artery stent placement Status: Chronic Comment: PCI-ADE mid RCA with a 2.25 x 16 Promus Synergy Stent 12/26/18 (11) Non-ST elevation (NSTEMI) myocardial infarction Status: Chronic (12) Essential (primary) hypertension Status: Chronic History of Present Illness Date of Admission: 06/12/19 Chief Complaint: sob The patient is a 64 year old F with a significant history of combined systolic and diastolic heart failure; CAD status post stent; COPD; hypertension who presents emergency department with progressively worsening shortness of breath for 4 to 5 days. Associated with her symptoms is productive cough of green sputum. Although at home patient used to wear 3 L nasal cannula oxygen she has had to increase her oxygen to 4 L/min. Past Medical History Past Medical History (Chronic Problems): Chronic Problems (Last Reviewed 06/13/19 @ 02:05 by Mathew Faulkner MD) COPD exacerbation (Chronic) HLD (hyperlipidemia) (Chronic) Chronic CHF (Chronic) Former tobacco use (Chronic) Anxiety and depression (Chronic) ED (obstructive sleep apnea) (Chronic) Chronic obstructive pulmonary disease with hypoxia (Chronic) Acute combined systolic (congestive) and diastolic (congestive) heart failure (Chronic) Atherosclerosis of coronary artery bypass graft of [place] heart with angina pectoris (Chronic) History of coronary artery stent placement (Chronic 12/26/18) PCI-ADE mid RCA with a 2.25 x 16 Promus Synergy Stent 12/26/18 Non-ST elevation (NSTEMI) myocardial infarction (Chronic 12/26/18) Essential (primary) hypertension (Chronic) Medical History: Medical History (Last Reviewed 06/13/19 @ 05:57 by Mathew Faulkner MD) ED (obstructive sleep apnea) (Chronic) G47.33 Chronic obstructive pulmonary disease with hypoxia (Chronic) J44.9, R09.02 Acute combined systolic (congestive) and diastolic (congestive) heart failure (Chronic) I50.41 Atherosclerosis of coronary artery bypass graft of [place] heart with angina pectoris (Chronic) I25.709 Non-ST elevation (NSTEMI) myocardial infarction (Chronic) Onset Date: 12/26/18 I21.4 Essential (primary) hypertension (Chronic) I10 Anxiety F41.9 Allergies diphenhydramine [From Benadryl] Allergy (Verified 05/08/19 15:31) Rash Penicillins Allergy (Verified 05/08/19 12:41) Swelling Home Medications: Ambulatory Orders Medication Instructions Recorded Sertraline HCl 25 mg PO DAILY 05/20/18 pantoprazole 40 mg tablet,delayed 40 mg PO DAILY 02/15/19 release Atorvastatin Calcium 80 mg PO QHS 05/08/19 Lisinopril/Hydrochlorothiazide 1 tab PO DAILY 05/08/19 [Lisinopril-Hctz 10-12.5 mg Tab] Ticagrelor [Brilinta] 90 mg PO BID 05/08/19 Umeclidinium [place] Inhaler 1 inh INHALATION DAILY 05/08/19 [Incruse Ellipta Inhaler] Acetaminophen [Tylenol Tablet] 650 mg PO Q6H PRN PRN tab 05/10/19 albuterol sulfate 90 mcg/actuation 1 - 2 puff INHALATION Q4H PRN #18 g 05/24/19 aerosol inhaler budesonide-formoterol HFA 160 1 puff INHALATION BID #10.2 g 05/24/19 mcg-4.5 mcg/actuation aerosol inhaler Aspirin E.C. [Ecotrin] 81 mg PO DAILY@0800 06/13/19 Melatonin 10 mg PO QHS PRN PRN 06/13/19 Metoprolol Tartrate [Lopressor 50 mg PO BID 06/13/19 (beta justin)] Surgical History: Surgical History (Last Reviewed 06/13/19 @ 05:57 by Mathew Faulkner MD) History of coronary artery stent placement (Chronic) Onset Date: 12/26/18 Z95.5 PCI-ADE mid RCA with a 2.25 x 16 Promus Synergy Stent 12/26/18 History of hysterectomy Z90.710 Surgical History: - - PCI x1, hysterectomy. 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 Maternal Family History: Family History (Last Reviewed 06/13/19 @ 05:57 by Mathew Faulkner MD) Mother COPD (chronic obstructive pulmonary disease) History Items: Asthma, COPD Review of Systems Constitutional: Denies: Fever, Weight Change HEENT: Denies: Head Aches, Sinus Congestion, Sinus Drainage Cardiovascular: Denies: Light Headedness, Palpitations, Syncope Respiratory: Reports: Cough, Shortness of Breath. Denies: Shortness of breath at rest, Sputum production Gastrointestinal: Denies: Abdominal Pain, Nausea, Vomiting Genitourinary: Denies: Dysuria Musculoskeletal: Denies: Joint Pain, Joint Tenderness Skin: Denies: Rash, Wounds Neurological: Denies: Numbness, Tingling, Focal weakness Psychiatric: Denies: Homicidal Ideations, Suicidal Ideations Hematologic/ Lymphatic: Denies: Easy Bruising, Easy Bleeding VTE Information - Inpt Only VTE Present on Admission: No VTE Mechan Device Prophylaxis: None VTE Pharm Prophylaxis ordered?: Yes Patient Problems: Active and Suspected Problems (Last Reviewed 06/13/19 @ 02:05 by Mathew Faulkner MD) COPD exacerbation (Acute) - Physical Exam Vitals/I&O's: Vital Signs Temp Pulse Resp BP Pulse Ox 97.7 F L 94 16 124/80 H 96 06/12/19 22:02 06/12/19 22:02 06/12/19 22:02 06/12/19 22:02 06/12/19 22:02 Oxygen Flow Rate (L/min) 3 Oxygen Delivery Method Nasal Cannula Weight: 77 kg Body Mass Index (BMI) 32.1 General: Alert, Oriented x3, Cooperative HEENT: Atraumatic, PERRLA, EOMI, Normocephalic Neck: Supple, No JVD, Negative Carotid Bruits Lungs: No rhonchi, No rales, Wheezes Cardiovascular: Normal S1, Normal S2, No murmurs, Tachycardic Abdomen: Bowel Sounds Present, Soft, Non Tender Extremities: No edema, Capillary Refill Less than 3 Seconds Skin: No rashes, No breakdown Musculoskeletal: No Tenderness to Palpation of Joints or Extremities Neurological: Cranial nerves II-XII grossly intact Psych/Mental Status: Normal Affect, Appropriate Microbiology Past 72 Hours 06/12/19 21:30 Mucosa - Nasopharyngeal Influenza Types A,B Direct FA (FELISA) - Final Laboratory Results 06/12/19 21:15: WBC 8.5, RBC 5.03, Hgb 14.2, Hct 44.5, MCV 88.5, MCH 28.2, MCHC 31.9 L, RDW Std Deviation 43.5, RDW Coeff of Ruy 13.4, Plt Count 258, MPV 9.7, Immature Gran % (Auto) 0.400, Neut % (Auto) 64.1, Lymph % (Auto) 19.4, [place] % (Auto) 11.3 H, Eos % (Auto) 4.0, Baso % (Auto) 0.8, Absolute Neuts (auto) 5.4, Absolute Lymphs (auto) 1.64, Nucleated RBC % 0 06/12/19 21:15: Sodium 138, Potassium 3.9, Chloride 104, Carbon Dioxide 31.0, Anion Gap 3 L, BUN 15, Creatinine 0.70, Estim Creat Clear Calc 62.07, Est GFR (MDRD) Af Amer 109, Est GFR (MDRD) Non-Af 90, BUN/Creatinine Ratio 21.5 H, Glucose 129 H, Calcium 9.5, Troponin I 0.048 H 06/12/19 21:15: Lactic Acid 0.8 Assessment/Plan All Active Problems (Last Reviewed 06/13/19 @ 02:05 by Mathew Faulkner MD) COPD exacerbation (Acute) COPD with exacerbation (Acute) COPD with exacerbation (Resolved) Hypoxemia (Resolved) Unstable angina (Resolved) The patient is a 64 year old F with a significant history of combined systolic and diastolic heart failure; CAD status post stent; COPD; hypertension who presents emergency department with progressively worsening shortness of breath; productive cough of green sputum and wheezes on examination consistent for acute exacerbation of COPD Exacerbation of COPD CXR independently reviewed confirms hyperinflation with flattening of the diaphragm consistent of COPD Scheduled DuoNeb Albuterol as needed Solu-Medrol 125 mg was given at the emergency department. We will continue Solu-Medrol at 40 mg IV every 8 hours. Azithromycin ordered. Oxygen as needed Scheduled Mucinex ordered. Inhalers continued Monitor BMP and CBC. History of CAD currently with elevated troponin Patient was admitted at our hospital ([facility]) on 12/26/2018 and discharged on 12/29/2018. At that time she was found to have non-ST elevation SD for which she received a stent to the RCA. EKG is unchanged. Trend troponin. Aspirin and Brilinta continued Depression/anxiety Sertraline continued GERD Protonix continued Hypertension On presentation her blood pressure was not within goal. Lisinopril?hydrochlorthiazide continued Metoprolol continued. Trend blood pressure and adjust blood pressure medications Obesity Lifestyle modification discussed. DVT prophylaxis Lovenox ordered. Code Visit Inpatient E&M: 59905 Init Hosp L2
[2019-06-13] VITALS (24 sets, daily range): BP systolic 127–153; BP diastolic 74–89; PULSE 90–116; RESP 18–20; TEMP 36.3–37.1; O2SAT 93–100; BMI 30.5
[2019-06-13] MEDS: Ipratropium/Albuterol Sulfate 3 ML AMPUL.NEB INHALATION ×5 (01:44→18:57)
[2019-06-13] MEDS: 0.9% Saline Lock 10 ML Syringe IV ×6 (01:48→21:28)
[2019-06-13] MEDS: MELATONIN 10 MG TABLET PO ×2 (01:49→23:35)
[2019-06-13 06:07] LABS: Absolute Lymphocyte Count 0.43 X10^3/uL (0.83-4.51); Basophil# 0.01 X10^3/uL; Basophil% 0.1 % (0-1); Eosinophil# 0.01 X10^3/uL; Eosinophils% 0.1 % (0-5); Lymphocyte # 0.43 X10^3/ul (4.0); Mean Corp Hgb Conc 32.5 g/dL (32-36); Mean Corpuscular Hgb 28.7 pg (27.0-32.0); Mean Corpuscular Volume 88.3 fL (81-99); Mean Platelet Vol. 9.9 fl (6.2-12.0); Monocyte% 1.2 % (0-10); NRBC Flagged by Analyzer 0 % (0-5); Neutrophil # 8.04 X10^3/uL (2.7-7.7); Neutrophil % 93.3 % (47-70); POSITIVE DIFFERENTIAL YES; Platelet Count 222 K/mm3 (150-450); RBC Distribution Width CV 13.4 % (11.6-14.6); RBC Distribution Width SD 43.6 fl (35.1-43.9); Red Blood Count 4.53 M/mm3 (4.2-5.4); White Blood Count 8.6 K/mm3 (4.4-11.0)
[2019-06-13 06:20] LABS: Differential Indicated SCAN CRITERIA MET
[2019-06-13 06:29] LABS: Anion Gap 5 (5-15); BUN 13 mg/dL (7-18); BUN/Creat Ratio 24.3 RATIO (10-20); Calcium,Total 9.2 mg/dL (8.5-10.1); Chloride 106 mmol/L (98-107); Creatinine, Serum 0.53 mg/dL (0.55-1.02); EST Glomerular Filtration Rate 123 mL/min (>60); Est Glom Filt Rate - Afr Amer 148 mL/min (>60); Estimated Creatinine Clearance 81.98 ml/min; Glucose 144 mg/dL (74-106); Potassium 3.8 mmol/L (3.5-5.1); Sodium Level 139 mmol/L (136-145)
[2019-06-13 06:39] LABS: Differential Comment SCANNED
--- NOTE | 2019-06-13 08:18 | CON.PCM_ITS ---
Reason for Consult Date of Consultation: 06/13/19 Reason for Consultation: Abnormal cardiac enzymes History of Present Illness: The patient is a 64 year old F who presented to the emergency room with progressive shortness of breath as well as cough productive of greenish sputum. She also noted that she was wheezing. Her past medical history is significant for presenting to the hospital in December of last year she had presented with shortness of breath and chest discomfort and was noted to have atypical chest pain. She had a non-ST elevation myocardial infarction. She underwent a cardiac catheterization which demonstrated a normal left main coronary artery with mild calcification, left anterior descending artery with 30% stenosis proximally and in the mid segment, left circumflex artery with nonobstructive disease, and the right coronary artery with an 80% stenotic lesion. She underwent angioplasty and drug-eluting stent with a 2.25?16 Promus Synergy stent. She is done well since then though she continues to be compliant with her medications. She actually tells me that she has discontinued tobacco use. She has not had any chest pain no paroxysmal nocturnal dyspnea no palpitations no dizziness no near syncope or syncope. Her EKG during this admission demonstrated normal sinus rhythm with no acute changes. Cardiac troponin enzymes were obtained and were noted to be mildly abnormal. You do remember that her previous echocardiogram had demonstrated an ejection fraction of 50% with segmental wall motion abnormalities in December 2018. Past Medical History Allergies/Adverse Reactions: Allergies diphenhydramine [From Benadryl] Allergy (Verified 05/08/19 15:31) Rash Penicillins Allergy (Verified 05/08/19 12:41) Swelling Home Medications: Ambulatory Orders Medication Instructions Recorded Sertraline HCl 25 mg PO DAILY 05/20/18 pantoprazole 40 mg tablet,delayed 40 mg PO DAILY 02/15/19 release Atorvastatin Calcium 80 mg PO QHS 05/08/19 Lisinopril/Hydrochlorothiazide 1 tab PO DAILY 05/08/19 [Lisinopril-Hctz 10-12.5 mg Tab] Ticagrelor [Brilinta] 90 mg PO BID 05/08/19 Umeclidinium [place] Inhaler 1 inh INHALATION DAILY 05/08/19 [Incruse Ellipta Inhaler] Acetaminophen [Tylenol Tablet] 650 mg PO Q6H PRN PRN tab 05/10/19 albuterol sulfate 90 mcg/actuation 1 - 2 puff INHALATION Q4H PRN #18 g 05/24/19 aerosol inhaler budesonide-formoterol HFA 160 1 puff INHALATION BID #10.2 g 05/24/19 mcg-4.5 mcg/actuation aerosol inhaler Aspirin E.C. [Ecotrin] 81 mg PO DAILY@0800 06/13/19 Melatonin 10 mg PO QHS PRN PRN 06/13/19 Metoprolol Tartrate [Lopressor 50 mg PO BID 06/13/19 (beta justin)] Past Medical History (Chronic Problems): Chronic Problems (Last Reviewed 06/13/19 @ 05:57 by Mathew Faulkner MD) HLD (hyperlipidemia) (Chronic) Chronic CHF (Chronic) Former tobacco use (Chronic) Anxiety and depression (Chronic) ED (obstructive sleep apnea) (Chronic) Chronic obstructive pulmonary disease with hypoxia (Chronic) Atherosclerosis of coronary artery bypass graft of [place] heart with angina pectoris (Chronic) History of coronary artery stent placement (Chronic 12/26/18) PCI-ADE mid RCA with a 2.25 x 16 Promus Synergy Stent 12/26/18 Non-ST elevation (NSTEMI) myocardial infarction (Chronic 12/26/18) Essential (primary) hypertension (Chronic) Surgical History: - - PCI x1, hysterectomy. 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 Lives: With Family Smoking Status: Former smoker Alcohol: None Drugs: None Review of Systems - Review of Systems General: Denies: Fever, Night Sweats, Fatigue HEENT: Denies: Vision Change Cardiovascular: Reports: Shortness of Breath, Shortness of Breath at Rest. Denies: Chest Discomfort, Orthopnea, PND, Peripheral Edema, Palpitations, Lightheadedness, Dizziness, Near Syncope, Syncope Respiratory: Denies: Cough, Sputum Production, Hemoptysis Gastrointestinal: Denies: Hematemesis, Hematochezia, Melena Genitourinary: Denies: Dysuria, Hematuria Muscoloskeletal: Denies: Myalgias Skin: Denies: Rash Neurological: Denies: Dizziness Psychiatric: Denies: Anxiety Endocrine: Denies: Heat Intolerance Subjectve: Pleasant lady in no distress Objective: Vital Signs Temp Pulse Resp BP Pulse Ox 97.4 F L 108 H 20 H 133/76 H 93 06/13/19 06:14 06/13/19 07:47 06/13/19 07:15 06/13/19 06:14 06/13/19 07:57 Oxygen Flow Rate (L/min) 3 Oxygen Delivery Method Nasal Cannula Weight: 161 lb 9.581 oz Body Mass Index (BMI) 30.5 Intake and Output for Last 24 Hours 06/11/19 06/12/19 06/13/19 23:59 23:59 23:59 Intake Total 1000 / 1000 557.5 / 557.5 Balance 1000 / 1000 557.5 / 557.5 General: Awake, Alert, Oriented x 3 HEENT: PERRL, EOMI, Sclera Non Icteric Neck: Supple, Good ROM, No Lymph Node Enlargement Lungs: Expiratory Wheezes-Xavi Cardiovascular: Regular Rhythm, Normal S1, Normal S2, No Murmurs, No Rubs, No Gallops Vascular: No Carotid Bruits, Normal Femoral Pulses, Normal Radial Pulses, Normal Dorsalis Pedal Pulse, Normal Posterior Tibial Pulses Abdomen: Bowel Sounds Present, Soft, Non Tender, No HSM, No Organomegaly Extremities: No Cyanosis, No Clubbing, No edema Musculoskeletal: No Erythema Skin: No Rashes Lymphatic: No Lymph Node Enlargement Neurological: No Focal Motor or Sensory Deficit Psych/Mental Status: Appropriate 06/12/19 21:15: WBC 8.5, RBC 5.03, Hgb 14.2, Hct 44.5, MCV 88.5, MCH 28.2, MCHC 31.9 L, Plt Count 258, MPV 9.7, Immature Gran % (Auto) 0.400, Neut % (Auto) 64.1, Lymph % (Auto) 19.4, [place] % (Auto) 11.3 H, Eos % (Auto) 4.0, Baso % (Auto) 0.8, Absolute Neuts (auto) 5.4, Nucleated RBC % 0 02/03/20 21:15: Sodium 138, Potassium 3.9, Chloride 104, Carbon Dioxide 31.0, Anion Gap 3 L, BUN 15, Creatinine 0.70, Est GFR (MDRD) Af Amer 109, Est GFR (MDRD) Non-Af 90, BUN/Creatinine Ratio 21.5 H, Glucose 129 H, Calcium 9.5, Troponin I 0.048 H 06/12/19 21:15: Lactic Acid 0.8 06/13/19 03:08: Troponin I 0.384 H 06/13/19 05:29: WBC 8.6, RBC 4.53, Hgb 13.0, Hct 40.0, MCV 88.3, MCH 28.7, MCHC 32.5, Plt Count 222, MPV 9.9, Immature Gran % (Auto) 0.300, Neut % (Auto) 93.3 H , Lymph % (Auto) 5.0 L, [place] % (Auto) 1.2, Eos % (Auto) 0.1, Baso % (Auto) 0.1, Absolute Neuts (auto) 8.0 H, Nucleated RBC % 0 06/13/19 05:29: Sodium 139, Potassium 3.8, Chloride 106, Carbon Dioxide 28.0, Anion Gap 5, BUN 13, Creatinine 0.53 L, Est GFR (MDRD) Af Amer 148, Est GFR (MDRD) Non-Af 123, BUN/Creatinine Ratio 24.3 H, Glucose 144 H, Calcium 9.2, Troponin I 0.455 H Rhythm: EKG: Normal sinus rhythm with no acute changes Assessment/Plan 1. Abnormal cardiac enzymes * She has a known history of coronary artery disease with previous stenting within the last 6 months of the right coronary artery and presents with an exacerbation clinical of her COPD. She does not have any EKG changes. EKG patent does not demonstrate a typical rise and fall and appears to be less suggestive of an acute coronary syndrome, though it appears to be continuing to rise * Would recommend medical therapy at this stage with an echocardiogram to assess her low ventricular function. If no new wall motion abnormalities are noted I would not recommend further work-up at this time * Continue beta-justin * Continue high intensity statin * Continue aspirin * Continue Brilinta * Her cardiac enzymes in April were noted to be completely normal and therefore discussed with her about perhaps proceeding with a coronary angiogram to assess her coronary anatomy. 2. Hypertension * Good control continue current medical therapy for now. * * Thank you for allowing me to participate in the care of your patient. Please don't hesitate to call if any issues arise
[2019-06-13] MEDS: Aspirin E.C. 81 MG Tablet PO (08:23)
--- NOTE | 2019-06-13 08:25 | ECHOCS_ITS ---
Reason For Study: S/P [place] Procedure This was a 2D Doppler, Color Flow transthoracic echocardiogram. The study was technically difficult. The study was technically limited. Limited views were obtained. Exam performed in department. Left Ventricle Normal LV size. Left ventricular systolic function is normal. The estimated ejection fraction is 65 %. Stage 1 diastolic dysfunction. No regional wall motion abnormalities noted. Right Ventricle Normal RV size. Normal systolic function. Atria Normal left atrium. Normal right atrium. Mitral Valve Normal mitral valve. Tricuspid Valve Normal tricuspid valve. Aortic Valve The aortic valve is not well visualized. Pulmonic Valve The pulmonic valve is not well visualized. Great Vessels Normal aortic root. The pulmonary artery is normal size. Normal inferior vena cava. Pericardium/Pleural No pericardial effusion. Medication Diluted definity 5.0ml given slow IV push to enhance endocardial definition. MMode/2D Measurements & Calculations LVIDd: 4.5 cm IVSd: 0.94 cm LAV(MOD-sp2): 28.4 ml LVIDs: 3.3 cm LVPWd: 0.89 cm FS: 27.0 % Time Measurements MV dec time: 0.15 sec Doppler Measurements & Calculations MV E max dominick: 71.0 cm/sec Lat Peak E' Dominick: 13.9 cm/sec Med Peak E' Dominick: 11.3 cm/sec MV A max dominick: 106.2 cm/sec E/E' lat: 5.1 E/E' med: 6.3 MV E/A: 0.67 PA V2 max: 106.0 cm/sec Interpretation Summary Normal LV size. Left ventricular systolic function is normal. The estimated ejection fraction is 65 %. Stage 1 diastolic dysfunction. Contrast injection was performed. Ordering Physician: Tico Mcgarry Referring Physician: Pili Alcocer Performed By: Tracy Gold, DIA, RVT
[2019-06-13] MEDS: Lisinopril 10 MG Tablet PO (08:41)
[2019-06-13] MEDS: hydroCHLOROthiazide 12.5mg 12.5 MG PO (08:41)
[2019-06-13] MEDS: TICAGRELOR 90 MG TABLET PO ×2 (08:42→21:29)
[2019-06-13] MEDS: Sertraline 50 MG Tablet 25 MG PO (08:42)
[2019-06-13] MEDS: Metoprolol Tartrate 50 MG Tablet PO ×2 (08:43→21:28)
[2019-06-13] MEDS: Pantoprazole Sodium 40 MG Tablet PO (08:44)
[2019-06-13] MEDS: guaiFENesin 1,200 MG Tablet 1200 MG PO ×2 (08:44→21:29)
[2019-06-13] MEDS: Enoxaparin 40 MG/0.4 ML Syringe SC (08:44)
--- NOTE | 2019-06-13 09:27 | PCM.PROGNOTE ---
Subjective: Chief complaint: Follow-up after admission for acute COPD exacerbation and abnormal cardiac enzymes. Patient seen and examined. No acute events overnight. Shortness of breath slightly improved compared to last night, still complaining of cough with minimal sputum. Denied chest pain, palpitation, dizziness or lightheadedness. She has been afebrile, heart rate has been around 100, blood pressure slightly elevated, pulse ox is 98% on 4 L. - Physical Exam Vitals/I&O's: Vital Signs Temp Pulse Resp BP Pulse Ox 98.8 F 104 H 18 150/86 H 98 06/13/19 08:38 06/13/19 08:43 06/13/19 08:38 06/13/19 08:43 06/13/19 08:38 Oxygen Flow Rate (L/min) 4 Oxygen Delivery Method Nasal Cannula Weight: 161 lb 9.581 oz Body Mass Index (BMI) 30.5 Intake and Output for Last 24 Hours 06/11/19 06/12/19 06/13/19 23:59 23:59 23:59 Intake Total 1000 / 1000 557.5 / 557.5 Balance 1000 / 1000 557.5 / 557.5 General: Alert, Oriented x3, Cooperative, - - Minimally short of breath. HEENT: Atraumatic, PERRLA, EOMI, Normocephalic Oral: Moist Mucosa, No Gingival or Mucosal Lesions/ Ulcerations Neck: Supple, No JVD, Negative Carotid Bruits, Trachea Midline, Thyroid Normal Size and Texture Lungs: No rales, Diminished, Rhonchi, Wheezes, - - Decreased breath sounds bilateral, occasional wheezes, scattered rhonchi. Cardiovascular: Regular rate, Regular Rhythm, Normal S1, Normal S2, PMI Normal, Tachycardic Abdomen: Bowel Sounds Present, Soft, Non Tender, Non-Distended, No Hepato-splenomegaly Extremities: No clubbing, No cyanosis, No edema Skin: No rashes, No breakdown Lymphatic: No Cervical, Supraclavicular, or Inguinal Adenopathy Neurological: Cranial nerves II-XII grossly intact, Motor Exam 5/5 strength throughout Psych/Mental Status: Normal Affect, Appropriate, Alert and oriented to time, place, person, mood and affect Microbiology Past 72 Hours 06/12/19 21:30 Mucosa - Nasopharyngeal Influenza Types A,B Direct FA (FELISA) - Final Laboratory Results 06/12/19 21:15: WBC 8.5, RBC 5.03, Hgb 14.2, Hct 44.5, MCV 88.5, MCH 28.2, MCHC 31.9 L, RDW Std Deviation 43.5, RDW Coeff of Ruy 13.4, Plt Count 258, MPV 9.7, Immature Gran % (Auto) 0.400, Neut % (Auto) 64.1, Lymph % (Auto) 19.4, [place] % (Auto) 11.3 H, Eos % (Auto) 4.0, Baso % (Auto) 0.8, Absolute Neuts (auto) 5.4, Absolute Lymphs (auto) 1.64, Nucleated RBC % 0 06/12/19 21:15: Sodium 138, Potassium 3.9, Chloride 104, Carbon Dioxide 31.0, Anion Gap 3 L, BUN 15, Creatinine 0.70, Estim Creat Clear Calc 62.07, Est GFR (MDRD) Af Amer 109, Est GFR (MDRD) Non-Af 90, BUN/Creatinine Ratio 21.5 H, Glucose 129 H, Calcium 9.5, Troponin I 0.048 H 06/12/19 21:15: Lactic Acid 0.8 06/13/19 03:08: Troponin I 0.384 H 06/13/19 05:29: WBC 8.6, RBC 4.53, Hgb 13.0, Hct 40.0, MCV 88.3, MCH 28.7, MCHC 32.5, RDW Std Deviation 43.6, RDW Coeff of Ruy 13.4, Plt Count 222, MPV 9.9, Immature Gran % (Auto) 0.300, Neut % (Auto) 93.3 H, Lymph % (Auto) 5.[address], [place] % (Auto) 1.2, Eos % (Auto) 0.1, Baso % (Auto) 0.1, Absolute Neuts (auto) 8.0 H, Absolute Lymphs (auto) 0.43 L, Nucleated RBC % 0, Differential Comment SCANNED 06/13/19 05:29: Sodium 139, Potassium 3.8, Chloride 106, Carbon Dioxide 28.0, Anion Gap 5, BUN 13, Creatinine 0.53 L, Estim Creat Clear Calc 81.98, Est GFR (MDRD) Af Amer 148, Est GFR (MDRD) Non-Af 123, BUN/Creatinine Ratio 24.3 H, Glucose 144 H, Calcium 9.2, Troponin I 0.455 H 06/13/19 08:35: Troponin I 0.510 H Clinical Impression(s) from Imaging Studies Chest X-Ray 06/12/19 21:35 IMPRESSION: COPD/emphysema Electronically Signed: Stan Edge MD at 22:01 EST , Service support , Current Medications Acetaminophen (Tylenol) 650 mg PO Q6H PRN PRN PRN Reason: Pain Score 1-10/Temp > 100.7 F Albuterol Sulfate (Ventolin Aerosols) 2.5 mg INHALATION Q2H PRN PRN PRN Reason: SHORTNESS OF BREATH Albuterol/Ipratropium (Duoneb) 3 ml INHALATION Q4HWA.RT [facility] Last Admin: 06/13/19 07:17 Dose: 3 ml Documented by: Aspirin (Ecotrin) 81 mg PO DAILY@0800 [facility] Last Admin: 06/13/19 08:23 Dose: 81 mg Documented by: Atorvastatin Calcium (Lipitor) 80 mg PO QHS [facility] Enoxaparin Sodium (Lovenox) 40 mg SC DAILY [facility] Last Admin: 06/13/19 08:44 Dose: 40 mg Documented by: Glucagon () 1 mg IM .X1 PRN PRN Reason: Hypoglycemia Guaifenesin (Mucinex) 1,200 mg PO BID [facility] Last Admin: 06/13/19 08:44 Dose: 1,200 mg Documented by: Hydrochlorothiazide () 12.5 mg PO DAILY [facility] Last Admin: 06/13/19 08:41 Dose: 12.5 mg Documented by: Azithromycin 500 mg/ Dextrose 255 mls @ 250 mls/hr IV QHS [facility] Stop: 06/14/19 23:02 Last Infusion: 06/13/19 04:07 Dose: Infused Documented by: Sodium Chloride () 250 mls @ 15 mls/hr IV .[id number] PRN PRN Reason: Additional IVPB Infusion Last Infusion: 06/13/19 01:58 Dose: 0 mls/hr Documented by: Dextrose (Dextrose 10%-Water) 250 mls @ 999 mls/hr IV .Q16M PRN; Protocol PRN Reason: HYPOGLYCEMIA Lisinopril (Zestril) 10 mg PO DAILY [facility] Last Admin: 06/13/19 08:41 Dose: 10 mg Documented by: Melatonin (Melatonin) 10 mg PO QHS PRN PRN PRN Reason: SLEEP Last Admin: 06/13/19 01:49 Dose: 10 mg Documented by: Methylprednisolone (Solu-Medrol) 40 mg IV Q8 [facility] Last Admin: 06/13/19 05:15 Dose: 40 mg Documented by: Metoprolol Tartrate (Lopressor (Beta Tano)) 50 mg PO BID [facility] Last Admin: 06/13/19 08:43 Dose: 50 mg Documented by: Ondansetron HCl (Zofran) 4 mg IV Q8H PRN PRN PRN Reason: NAUSEA/VOMITING Pantoprazole Sodium (Protonix) 40 mg PO DAILY [facility] Last Admin: 06/13/19 08:44 Dose: 40 mg Documented by: Sertraline HCl (Zoloft) 25 mg PO DAILY [facility] Last Admin: 06/13/19 08:42 Dose: 25 mg Documented by: Sodium Chloride () 10 - 40 ml IV UD PRN PRN Reason: SALINE FLUSH Last Admin: 06/13/19 08:42 Dose: 10 ml Documented by: Ticagrelor (Brilinta) 90 mg PO BID [facility] Last Admin: 06/13/19 08:42 Dose: 90 mg Documented by: Medical Necessity - Tobacco Use Smoking Status: Former smoker Assessment/Plan This is a 64 years old female patient presented to the emergency room because of worsening shortness of breath and cough and she was found to have acute COPD exacerbation and abnormal cardiac enzymes. #1 acute COPD exacerbation: She is on IV Solu-Medrol, IV Zithromax and bronchodilators. Chest x-ray reviewed, no acute infiltrate or consolidation. At home, she has been on 3 L, now she is on 4 L. Other vital signs are stable, blood pressure is not elevated. Nasal swab for influenza a and B were negative. Blood cultures pending. Plan to continue same treatment. #2 abnormal cardiac enzymes: Patient denied any chest pain. EKG without acute ischemic changes. She is on aspirin, Brilinta, statins, lisinopril and metoprolol. Cardiology consulted, recommended 2D echocardiogram. #3 CAD status post stents: No evidence of acute, changes on EKG. Plan as above, continue aspirin, Brilinta, statins, lisinopril and metoprolol. #4 hypertension: Blood pressure minimally elevated, continue HCTZ, lisinopril and metoprolol. #5 anxiety/depression: Stable, continue Zoloft. #6 hyperlipidemia: Continue statins. #7 DVT prophylaxis: Subcu Lovenox. This note was generated with [employer] dictation software. It may contain incorrect words, spelling, and punctuation that were not noted in checking the note before signing. Code Visit Inpatient E&M: 26725 Subs Hosp L2
[2019-06-13] MEDS: Acetaminophen 325 MG Tablet 650 MG PO (09:47)
--- NOTE | 2019-06-13 11:25 | CASEMGMT ---
Addendum entered by Lucrecia Pantoja 06/13/19 12:08: SW received call from Susanne in [facility] stating she called [facility] and they had an emergency hearing for pt and pt's medicaid is now active and will be backdated to the beginning of the year. Addendum entered by Lucrecia Pantoja 06/13/19 11:30: SW did briefly go in to speak with pt and updated her that [facility] should be coming to see pt or will be calling pt. SW provided pt with [facility] number, medicaid application and 800 number for pt to call medicaid and get medicaid restablished. SW also provided pt with additional financial information and resources including [employer], [employer], [employer], and RX assistance programs including good RX. Pt asked about rails around her steps to enter her home. SW updated pt that insurance won't pay for rails and she will need to have someone build the rails for her. Pt states understanding. Pt denied additional needs or concerns at this time. Original Note: Social Work Note Pt is listed as self-pay. SW placed a call to [facility] and left message asking for [facility] to see pt. Lucrecia Pantoja FISH MACHINE FEEDER, OFFICE SERVICES ASSOCIATE
--- NOTE | 2019-06-13 12:40 | NURSING ---
Student charting reviewed.
--- NOTE | 2019-06-13 12:47 | CASEMGMT ---
RN CM Assessment Introduced role of RN CM to patient, laying in bed and agreeable to RNCM assessment at this time.? Patient is alert, oriented and able?to participate in RN CM Assessment. ?Care providers, pharmacy, and demographics verified. Presentation: Per H&P- Progressively worsening SOB x4-5 days, has had to increase home O2 from 3L to 4Lpm. H/o Combined Systolic and Diastolic HF, CAD s/p stent, COPD, HTN. Admit Dx: COPD Exacerbation Re-Admit: No. Inpt 05/08-05/10/2019 for Acute COPD Exacerbation Barriers/Issues: Patient states not sure why she is showing SP for insurance and that she had [facility] RAFIA and received something in the mail in which she mailed back to them approx 1 week ago. States that she feels she needs a Nebulizer upon DC. Primary RNCM Lucrecia Martinez and NOY Luevano made aware re: mentioned above. States in his 70's/retired and physically able to help her- states that she is currently ill too but her son does not work and lives with them and assists with the cooking and loss prevention/safety district manager and able to help her and physically as well. PCP: Sees the TEACHING MANAGER Christin at the [facility] Specialists: Pulm- Dr Heart, Cardio- Dr Mcgarry Preferred Pharmacy: [facility] Insurance: SP- see above issue Rx Benefit:?None unless has RAFIA ?LNOK: Gus Romano LW/HPOA: States that she has both completed, made aware not on file at [facility] and if brought in will scan a copy on file. HPOA- Gus Romano Living Arrangements:? Lives with her son and in a [facility], 4 steps to enter home. States that she feels she needs hand rails installed but the [employer] will not help with that. This internal communications writer advised to call [facility] and inquire if they assist with that. ADL?s: Independent with ambulation in the house, for longer distances states she is independent with person assist. Independent with ADLs Transportation: Son or DME: Shower Chair, RTS, grab bars in bathroom, Home O2 3LPM continuous- concentrator and one portable tank through [employer] HHC: None SNF: None Goal: Home and states only need is for a Nebulizer Machine and figuring out why her insurance is not active. Denies any issues, concerns, ,needs or questions with DC planning at this time. Aware this internal communications writer to notify primary RNCM and SW of her concerns. Aware RNCM remains available for any emerging needs. Discussed with patient to ensure her son brings her portable O2 tank when he comes to pick her up at DC. DC PLAN: Home with no anticipated needs identified at this time. Fortunato Cabrales RNCM
[2019-06-13] MEDS: Atorvastatin Calcium 80 MG Tablet PO (21:29)
[2019-06-14] VITALS (16 sets, daily range): BP systolic 102–144; BP diastolic 63–83; PULSE 59–93; RESP 18–20; TEMP 35.6–36.9; O2SAT 96–99
[2019-06-14] MEDS: Albuterol 2.5 MG/3 ML VIAL.NEB. INHALATION ×2 (05:43→07:51)
[2019-06-14] MEDS: Aspirin E.C. 81 MG Tablet PO (08:36)
[2019-06-14] MEDS: Lisinopril 10 MG Tablet PO (08:37)
[2019-06-14] MEDS: Metoprolol Tartrate 50 MG Tablet PO ×2 (08:37→22:06)
[2019-06-14] MEDS: TICAGRELOR 90 MG TABLET PO ×2 (08:37→22:05)
[2019-06-14] MEDS: LORazepam 1 MG Tablet PO (09:02)
--- NOTE | 2019-06-14 09:26 | PCM.PROGNOTE ---
Subjective: Chief complaint: Follow-up after admission for acute COPD exacerbation, intermittent chest pain with abnormal cardiac enzymes. Patient seen and examined. No acute events overnight. Today, she reported minimal to no improvement of her symptoms, still short of breath with wheezing. She has been having intermittent chest pain as well which seemed to be pleuritic. She remained on 4 L of oxygen, other vital signs are stable. She is going for cardiac catheterization today. - Physical Exam Vitals/I&O's: Vital Signs Temp Pulse Resp BP Pulse Ox 98.5 F 90 18 144/75 H 97 06/14/19 02:28 06/14/19 08:37 06/14/19 07:45 06/14/19 08:37 06/14/19 07:45 Oxygen Flow Rate (L/min) 4 Oxygen Delivery Method Nasal Cannula Weight: 161 lb 9.581 oz Body Mass Index (BMI) 30.5 Intake and Output for Last 24 Hours 06/12/19 06/13/19 06/14/19 23:59 23:59 23:59 Intake Total 1000 / 1000 1462.5 / 1462.5 Balance 1000 / 1000 1462.5 / 1462.5 General: Alert, Oriented x3, Cooperative, No apparent distress HEENT: Atraumatic, PERRLA, EOMI, Normocephalic Oral: Moist Mucosa, No Gingival or Mucosal Lesions/ Ulcerations Neck: Supple, No JVD, Negative Carotid Bruits, Trachea Midline, Thyroid Normal Size and Texture Lungs: No rhonchi, No rales, Diminished, Short of Breath, - - Diminished breath sounds bilateral, occasional wheezes. Cardiovascular: Regular rate, Regular Rhythm, Normal S1, Normal S2, PMI Normal Abdomen: Bowel Sounds Present, Soft, Non Tender, Non-Distended, No Hepato-splenomegaly Extremities: No clubbing, No cyanosis, No edema Skin: No rashes, No breakdown Lymphatic: No Cervical, Supraclavicular, or Inguinal Adenopathy Neurological: Cranial nerves II-XII grossly intact, Neuro grossly intact Psych/Mental Status: Normal Affect, Appropriate Microbiology Past 72 Hours 06/12/19 21:30 Mucosa - Nasopharyngeal Influenza Types A,B Direct FA (FELISA) - Final Current Medications Acetaminophen (Tylenol) 650 mg PO Q6H PRN PRN PRN Reason: Pain Score 1-10/Temp > 100.7 F Last Admin: 06/13/19 09:47 Dose: 650 mg Documented by: Albuterol Sulfate (Ventolin Aerosols) 2.5 mg INHALATION Q2H PRN PRN PRN Reason: SHORTNESS OF BREATH Last Admin: 06/14/19 07:51 Dose: 2.5 mg Documented by: Albuterol/Ipratropium (Duoneb) 3 ml INHALATION Q4HWA.RT [facility] Last Admin: 06/13/19 18:57 Dose: 3 ml Documented by: Aspirin (Ecotrin) 81 mg PO DAILY@0800 [facility] Last Admin: 06/14/19 08:36 Dose: 81 mg Documented by: Atorvastatin Calcium (Lipitor) 80 mg PO QHS [facility] Last Admin: 06/13/19 21:29 Dose: 80 mg Documented by: Enoxaparin Sodium (Lovenox) 40 mg SC DAILY [facility] Last Admin: 06/14/19 08:38 Dose: Not Given Documented by: Glucagon () 1 mg IM .X1 PRN PRN Reason: Hypoglycemia Guaifenesin (Mucinex) 1,200 mg PO BID [facility] Last Admin: 06/13/19 21:29 Dose: 1,200 mg Documented by: Hydrochlorothiazide () 12.5 mg PO DAILY [facility] Last Admin: 06/13/19 08:41 Dose: 12.5 mg Documented by: Azithromycin 500 mg/ Dextrose 255 mls @ 250 mls/hr IV QHS [facility] Stop: 06/14/19 23:02 Last Infusion: 06/13/19 22:33 Dose: Infused Documented by: Sodium Chloride () 250 mls @ 15 mls/hr IV .[id number] PRN PRN Reason: Additional IVPB Infusion Last Infusion: 06/13/19 22:33 Dose: 15 mls/hr Documented by: Dextrose (Dextrose 10%-Water) 250 mls @ 999 mls/hr IV .Q16M PRN; Protocol PRN Reason: HYPOGLYCEMIA Sodium Chloride () 1,000 mls @ 0 mls/hr IV .Q0M [facility] Lisinopril (Zestril) 10 mg PO DAILY [facility] Last Admin: 06/14/19 08:37 Dose: 10 mg Documented by: Melatonin (Melatonin) 10 mg PO QHS PRN PRN PRN Reason: SLEEP Last Admin: 06/13/19 23:35 Dose: 10 mg Documented by: Methylprednisolone (Solu-Medrol) 40 mg IV Q8 [facility] Last Admin: 06/14/19 05:04 Dose: 40 mg Documented by: Metoprolol Tartrate (Lopressor (Beta Tano)) 50 mg PO BID [facility] Last Admin: 06/14/19 08:37 Dose: 50 mg Documented by: Ondansetron HCl (Zofran) 4 mg IV Q8H PRN PRN PRN Reason: NAUSEA/VOMITING Pantoprazole Sodium (Protonix) 40 mg PO DAILY [facility] Last Admin: 06/13/19 08:44 Dose: 40 mg Documented by: Sertraline HCl (Zoloft) 25 mg PO DAILY [facility] Last Admin: 06/13/19 08:42 Dose: 25 mg Documented by: Sodium Chloride () 10 - 40 ml IV UD PRN PRN Reason: SALINE FLUSH Last Admin: 06/13/19 21:28 Dose: 10 ml Documented by: Ticagrelor (Brilinta) 90 mg PO BID [facility] Last Admin: 06/14/19 08:37 Dose: 90 mg Documented by: Medical Necessity - Tobacco Use Smoking Status: Former smoker Assessment/Plan This is a 64 years old female patient presented to the emergency room because of worsening shortness of breath and cough and she was found to have acute COPD exacerbation and abnormal cardiac enzymes. #1 acute COPD exacerbation: Remained on IV Solu-Medrol, IV Zithromax and bronchodilators. She reported no significant improvement of her symptoms, still requiring 4 L of oxygen. Chest x-ray reviewed, no acute infiltrate or consolidation. At home, she has been on 3 L, now she is on 4 L. Other vital signs are stable, blood pressure is not elevated. Nasal swab for influenza a and B were negative. Blood cultures pending. Plan to continue same treatment. #2 abnormal cardiac enzymes: With intermittent chest pain although yesterday, patient denied any chest pain.. EKG without acute ischemic changes. She is on aspirin, Brilinta, statins, lisinopril and metoprolol. Cardiology consulted, recommended 2D echocardiogram. 2D echocardiogram revealed ejection fraction of 65%, stage I diastolic dysfunction. Plan for cardiac catheterization today. #3 CAD status post stents: No evidence of acute changes on EKG. Plan as above, cardiac catheterization today, continue aspirin, Brilinta, statins, lisinopril and metoprolol. #4 hypertension: Blood pressure minimally elevated, continue HCTZ, lisinopril and metoprolol. #5 anxiety/depression: Stable, continue Zoloft. #6 hyperlipidemia: Continue statins. #7 DVT prophylaxis: Subcu Lovenox. This note was generated with [employer] software. It may contain incorrect words, spelling, and punctuation that were not noted in checking the note before signing. Code Visit Inpatient E&M: 31377 Subs Hosp L2
[2019-06-14] MEDS: 0.9% Saline Lock 10 ML Syringe IV ×3 (10:46→23:30)
[2019-06-14] MEDS: Ipratropium/Albuterol Sulfate 3 ML AMPUL.NEB INHALATION ×2 (11:43→19:50)
--- NOTE | 2019-06-14 12:10 | NURSING ---
report given to photo lab specialist and spoke with lino irizarry
--- NOTE | 2019-06-14 12:35 | NURSING ---
Student nurse documentation reviewed.
--- NOTE | 2019-06-14 13:31 | PN.CARD_ITS ---
Subjectve: Patient seen and evaluated and appears to be stable Objective: Vital Signs Temp Pulse Resp BP Pulse Ox 98.3 F 90 18 120/68 98 06/14/19 10:31 06/14/19 12:06 06/14/19 10:31 06/14/19 10:31 06/14/19 11:32 Oxygen Flow Rate (L/min) 4 Oxygen Delivery Method Nasal Cannula Weight: 161 lb 9.581 oz Body Mass Index (BMI) 30.5 Intake and Output for Last 24 Hours 06/12/19 06/13/19 06/14/19 23:59 23:59 23:59 Intake Total 1000 / 1000 1462.5 / 1462.5 183.25 / 183.25 Balance 1000 / 1000 1462.5 / 1462.5 183.25 / 183.25 General: Awake, Alert, Oriented x 3 HEENT: PERRL, EOMI, Sclera Non Icteric Neck: Supple, Good ROM, No Lymph Node Enlargement Lungs: Clear to auscultation Cardiovascular: Regular Rhythm, Normal S1, Normal S2, No Murmurs, No Rubs, No Gallops Rhythm: EKG: ECHO: Stress Test: Cardiac Cath: PCI: CT Surgery: Holter monitor: EPS: PPM: CXR: Chest CT Scan: Medical Necessity - Tobacco Use Smoking Status: Former smoker Assessment/Plan 1. Abnormal cardiac enzymes * She has a known history of coronary artery disease with previous stenting within the last 6 months of the right coronary artery and presents with an exacerbation clinical of her COPD. She does not have any EKG changes. * Patient underwent cardiac catheterization today which demonstrated minimal to mild disease in the left anterior descending artery, left circumflex artery with no significant disease, previously stented right coronary artery is patent. * Continue beta-justin * Continue high intensity statin * Continue aspirin * Continue Brilinta * 2. Hypertension * Good control continue current medical therapy for now. * * Thank you for allowing me to participate in the care of your patient. Please don't hesitate to call if any issues arise. We will sign off for now
[2019-06-14] MEDS: Pantoprazole Sodium 40 MG Tablet PO (16:46)
[2019-06-14] MEDS: Sertraline 50 MG Tablet 25 MG PO (16:46)
--- NOTE | 2019-06-14 18:28 | CL.D_ITS ---
Patient Name: DIANA STATON I Study Date: 06/14/2019 Performing: Tico Mcgarry MD Ht: 61 inches 155 cm : 1955 Wt: 161.1 lbs 73 kg Age: 64 Gender: female BSA: 1.72 PROCEDURE(S) PERFORMED [id number] CLINICAL PROFILE AND INDICATIONS Indications: Suspected CAD Heart Failure: None Stress/Imaging Stress/Image Study Performed: No CAD Presentations: Symptom unlikely to be ischemic. CONCLUSIONS Non obstructive coronary arteries RECOMMENDATIONS Medical therapy DESCRIPTION OF PROCEDURE The patient arrived to the procedure lab. The risks and benefits of the procedure as well as a full d escription of our services here and current unavailability of surgical backup were fully explained to the patient and/or their significant other prior to the catheterization. The Timeout was completed, verifying the correct patient and procedure. The patient's procedural site was prepped and draped in the usual fashion. Local anesthetic was given subcutaneously to right groin region with Lidocaine 2%. Using a modified Seldinger technique, arterial access was obtained via the right femoral artery, a 5 Fr sheath was inserted. Left Coronary Artery selective angiography was performed in multiple views u sing a 5 Fr. JL4 catheter.Contrast was injected through the sheath and the Right Iliac and Femoral ar jewels were assessed for possible closure device.The arterial sheath was pulled and a Mynx closure bjorn ce was deployed for hemostasis CORONARY ANGIOGRAPHY DOMINANCE: Co- Dominant LEFT HEART ASSESSMENT Left Ventricular Ejection Fraction: by Echo 65 % Normal LV wall motion LEFT MAIN: Angiographically normal LEFT ANTERIOR DESCENDING ARTERY: PROX LAD: Mild luminal irregularities less than 30% CIRCUMFLEX ARTERY: No significant disease noted RIGHT CORONARY ARTERY: PROX RCA: Angiographically normal MID RCA: Previously placed stent is patent COMPLICATIONS No Complications PROCEDURE MEDICATIONS Versed 0.5 mg IV Oxygen: 4 L/min via nasal cannula IV Fluids: .9 NaCl increased to WO ml/hr 06/14/2019 13:08:13 SUMMARY OF HEMODYNAMIC DATA Time AIR REST ECG 12:38:52 AO 106/59 (78) SA 13:06:02 Signed By Tico Mcgarry MD On 06/14/2019 18:28:09 Malgorzata, Tico MD
[2019-06-14] MEDS: Atorvastatin Calcium 80 MG Tablet PO (22:06)
[2019-06-14] MEDS: guaiFENesin 1,200 MG Tablet 1200 MG PO (22:06)
[2019-06-14] MEDS: MELATONIN 10 MG TABLET PO (23:30)
[2019-06-15] VITALS (15 sets, daily range): BP systolic 117–130; BP diastolic 56–68; PULSE 58–89; RESP 16–20; TEMP 36.4–37.1; O2SAT 94–97
[2019-06-15] MEDS: Ipratropium/Albuterol Sulfate 3 ML AMPUL.NEB INHALATION ×4 (06:57→19:50)
[2019-06-15] MEDS: 0.9% Saline Lock 10 ML Syringe IV (07:36)
[2019-06-15] MEDS: TICAGRELOR 90 MG TABLET PO ×2 (08:49→21:42)
[2019-06-15] MEDS: Aspirin E.C. 81 MG Tablet PO (08:49)
[2019-06-15] MEDS: Pantoprazole Sodium 40 MG Tablet PO (08:49)
[2019-06-15] MEDS: Lisinopril 10 MG Tablet PO (08:50)
[2019-06-15] MEDS: hydroCHLOROthiazide 12.5mg 12.5 MG PO (08:50)
[2019-06-15] MEDS: Enoxaparin 40 MG/0.4 ML Syringe SC (08:51)
[2019-06-15] MEDS: guaiFENesin 1,200 MG Tablet 1200 MG PO ×2 (08:51→21:42)
[2019-06-15] MEDS: Sertraline 50 MG Tablet 25 MG PO (08:51)
[2019-06-15] MEDS: Metoprolol Tartrate 50 MG Tablet PO ×2 (08:52→21:42)
--- NOTE | 2019-06-15 09:12 | PN_ITS ---
Subjective: Chief complaint: Follow-up after admission for acute COPD exacerbation, intermittent chest pain with abnormal cardiac enzymes. Patient seen and examined. No acute events overnight. Today, she is feeling a little bit better, shortness of breath has been improving but not to her baseline yet. She is thickening of cough with no sputum. She has no more chest pain. She remains on 4 L of oxygen, other vitals are stable. - Physical Exam Vitals/I&O's: Vital Signs Temp Pulse Resp BP Pulse Ox 97.5 F L 80 16 117/62 94 06/15/19 06:15 06/15/19 08:52 06/15/19 06:57 06/15/19 06:15 06/15/19 06:57 Oxygen Flow Rate (L/min) 4 Oxygen Delivery Method Nasal Cannula Weight: 161 lb 9.581 oz Body Mass Index (BMI) 30.5 Intake and Output for Last 24 Hours 06/13/19 06/14/19 06/15/19 23:59 23:59 23:59 Intake Total 1462.5 / 1462.5 749.25 / 1199.25 550 / 550 Output Total 250 / 250 Balance 1462.5 / 1462.5 499.25 / 949.25 550 / 550 General: Alert, Oriented x3, Cooperative, No apparent distress HEENT: Atraumatic, PERRLA, EOMI, Normocephalic Oral: Moist Mucosa, No Gingival or Mucosal Lesions/ Ulcerations Neck: Supple, No JVD, Negative Carotid Bruits, Trachea Midline, Thyroid Normal Size and Texture Lungs: No rales, Diminished, Rhonchi, - - Decreased breath sounds bilateral, faint end expiratory wheezes. Cardiovascular: Regular rate, Regular Rhythm, Normal S1, Normal S2, PMI Normal Abdomen: Bowel Sounds Present, Soft, Non Tender, Non-Distended, No Hepato- splenomegaly Extremities: No clubbing, No cyanosis, No edema Skin: No rashes, No breakdown Lymphatic: No Cervical, Supraclavicular, or Inguinal Adenopathy Neurological: Cranial nerves II-XII grossly intact, Neuro grossly intact Psych/Mental Status: Normal Affect, Appropriate Microbiology Past 72 Hours 06/12/19 21:30 Mucosa - Nasopharyngeal Influenza Types A,B Direct FA (FELISA) - Final Current Medications Acetaminophen (Tylenol) 650 mg PO Q6H PRN PRN PRN Reason: Pain Score 1-10/Temp > 100.7 F Last Admin: 06/13/19 09:47 Dose: 650 mg Documented by: Albuterol Sulfate (Ventolin Aerosols) 2.5 mg INHALATION Q2H PRN PRN PRN Reason: SHORTNESS OF BREATH Last Admin: 06/14/19 07:51 Dose: 2.5 mg Documented by: Albuterol/Ipratropium (Duoneb) 3 ml INHALATION Q4HWA.RT [facility] Last Admin: 06/15/19 06:57 Dose: 3 ml Documented by: Aspirin (Ecotrin) 81 mg PO DAILY@0800 [facility] Last Admin: 06/15/19 08:49 Dose: 81 mg Documented by: Atorvastatin Calcium (Lipitor) 80 mg PO QHS [facility] Last Admin: 06/14/19 22:06 Dose: 80 mg Documented by: Enoxaparin Sodium (Lovenox) 40 mg SC DAILY [facility] Last Admin: 06/15/19 08:51 Dose: 40 mg Documented by: Glucagon () 1 mg IM .X1 PRN PRN Reason: Hypoglycemia Guaifenesin (Mucinex) 1,200 mg PO BID [facility] Last Admin: 06/15/19 08:51 Dose: 1,200 mg Documented by: Hydrochlorothiazide () 12.5 mg PO DAILY [facility] Last Admin: 06/15/19 08:50 Dose: 12.5 mg Documented by: Sodium Chloride () 250 mls @ 15 mls/hr IV .[id number] PRN PRN Reason: Additional IVPB Infusion Last Infusion: 06/14/19 18:10 Dose: 0 mls/hr Documented by: Dextrose (Dextrose 10%-Water) 250 mls @ 999 mls/hr IV .Q16M PRN; Protocol PRN Reason: HYPOGLYCEMIA Sodium Chloride () 1,000 mls @ 0 mls/hr IV .Q0M [facility] Lisinopril (Zestril) 10 mg PO DAILY [facility] Last Admin: 06/15/19 08:50 Dose: 10 mg Documented by: Melatonin (Melatonin) 10 mg PO QHS PRN PRN PRN Reason: SLEEP Last Admin: 06/14/19 23:30 Dose: 10 mg Documented by: Methylprednisolone (Solu-Medrol) 40 mg IV Q8 [facility] Last Admin: 06/15/19 07:35 Dose: 40 mg Documented by: Metoprolol Tartrate (Lopressor (Beta Tano)) 50 mg PO BID [facility] Last Admin: 06/15/19 08:52 Dose: 50 mg Documented by: Ondansetron HCl (Zofran) 4 mg IV Q8H PRN PRN PRN Reason: NAUSEA/VOMITING Pantoprazole Sodium (Protonix) 40 mg PO DAILY [facility] Last Admin: 06/15/19 08:49 Dose: 40 mg Documented by: Sertraline HCl (Zoloft) 25 mg PO DAILY [facility] Last Admin: 06/15/19 08:51 Dose: 25 mg Documented by: Sodium Chloride () 10 - 40 ml IV UD PRN PRN Reason: SALINE FLUSH Last Admin: 06/15/19 07:36 Dose: 10 ml Documented by: Ticagrelor (Brilinta) 90 mg PO BID [facility] Last Admin: 06/15/19 08:49 Dose: 90 mg Documented by: Medical Necessity - Tobacco Use Smoking Status: Former smoker Assessment/Plan This is a 64 years old female patient presented to the emergency room because of worsening shortness of breath and cough and she was found to have acute COPD exacerbation and abnormal cardiac enzymes. #1 acute COPD exacerbation: Remained on IV Solu-Medrol and and bronchodilators. Completed 3 days of IV Zithromax. She reported minimal improvement of her symptoms, feeling better but still not back to her baseline. She remains on 4 L of oxygen. Chest x-ray reviewed, no acute infiltrate or consolidation. At home, she has been on 3 L, now she is on 4 L. Other vital signs are stable, blood pressure stable. Nasal swab for influenza a and B were negative. Blood cultures pending. Plan: Wean down IV steroids, ambulate, anticipate discharge home tomorrow. #2 abnormal cardiac enzymes: With intermittent chest pain. EKG without acute ischemic changes. Status post cardiac catheterization that revealed nonobstructive CAD, no significant lesions and no interventions performed. She is on aspirin, Brilinta, statins, lisinopril and metoprolol. 2D echocardiogram revealed ejection fraction of 65%, stage I diastolic dysfunction. Plan to continue same treatment. #3 CAD status post stents: Status post cardiac catheterization as mentioned above. Stable, continue aspirin, Brilinta, statins, lisinopril and metoprolol. #4 hypertension: Blood pressure under better control, continue HCTZ, lisinopril and metoprolol. #5 anxiety/depression: Stable, continue Zoloft. #6 hyperlipidemia: Continue statins. #7 DVT prophylaxis: Subcu Lovenox. This note was generated with [employer] dictation software. It may contain incorrect words, spelling, and punctuation that were not noted in checking the note before signing. Code Visit Inpatient E&M: 79325 Subs Hosp L2
--- NOTE | 2019-06-15 09:41 | CASEMGMT ---
Social Work Note SW updated pt that per PFS, pt's medicaid is now active. SW updated pt that PFS had called [employer] and got pt's medicaid information and pt's medicaid is active. Pt states understanding. Lucrecia Pantoja BORDER INSPECTOR, INTEL RECRUITER
[2019-06-15] MEDS: ALPRAZolam 0.5 MG Tablet PO (16:13)
[2019-06-15] MEDS: Atorvastatin Calcium 80 MG Tablet PO (21:42)
[2019-06-16] VITALS (8 sets, daily range): BP systolic 146–148; BP diastolic 71–81; PULSE 60–94; RESP 18–20; TEMP 36.5–36.6; O2SAT 94–98
[2019-06-16] MEDS: MELATONIN 10 MG TABLET PO (01:43)
[2019-06-16] MEDS: Ipratropium/Albuterol Sulfate 3 ML AMPUL.NEB INHALATION ×3 (02:57→11:18)
--- NOTE | 2019-06-16 08:38 | PCM.DC ---
You will use the following diet at home:: Cardiac Your food should be the consistency of: Regular Discharge Activity: Return to Normal Activity Weight Bearing Status: Weight bearing as tolerated Call your doctor if you observe: Fever of 101 or Higher, Shortness of breath, Dizziness, Fainting spells, Chest pain, Increased palpitations (irregular heartbeat), Uncontrolled pain Instructions: COPD: Using Inhalers Allergies/Adverse Reactions: Allergies diphenhydramine [From Benadryl] Allergy (Verified 05/08/19 15:31) Rash Penicillins Allergy (Verified 05/08/19 12:41) Swelling Medications to take at Discharge Sertraline HCl 25 mg PO DAILY 05/20/18 pantoprazole 40 mg tablet,delayed release 40 mg PO DAILY 02/15/19 Atorvastatin Calcium 80 mg PO QHS 05/08/19 Lisinopril/Hydrochlorothiazide [Lisinopril-Hctz 10-12.5 mg Tab] 1 tab PO DAILY 05/08/19 Ticagrelor [Brilinta] 90 mg PO BID 05/08/19 Umeclidinium [place] Inhaler [Incruse Ellipta Inhaler] 1 inh INHALATION DAILY 05/08/19 Acetaminophen [Tylenol Tablet] 650 mg PO Q6H PRN PRN tab 05/10/19 albuterol sulfate 90 mcg/actuation aerosol inhaler 1 - 2 puff INHALATION Q4H PRN #18 g 05/24/19 budesonide-formoterol HFA 160 mcg-4.5 mcg/actuation aerosol inhaler 1 puff INHALATION BID #10.2 g 05/24/19 Aspirin E.C. [Ecotrin] 81 mg PO DAILY@0800 06/13/19 Melatonin 10 mg PO QHS PRN PRN 06/13/19 Metoprolol Tartrate [Lopressor (beta justin)] 50 mg PO BID 06/13/19 Prednisone 10 mg PO DAILY #30 tab 06/16/19 The following prescriptions were given: Prednisone 10 mg PO DAILY #30 tab Transmission Status: Pending to [facility] Primary Care Physician: Pili Alcocer [Primary Care Provider] - Please follow up with your Primary Care Physician in: as scheduled. Test Results: Test results from this visit will be discussed in further detail at your follow-up appointment, if applicable.
[2019-06-16] MEDS: guaiFENesin 1,200 MG Tablet 1200 MG PO (08:49)
[2019-06-16] MEDS: Aspirin E.C. 81 MG Tablet PO (08:49)
[2019-06-16] MEDS: hydroCHLOROthiazide 12.5mg 12.5 MG PO (10:12)
[2019-06-16] MEDS: TICAGRELOR 90 MG TABLET PO (10:12)
[2019-06-16] MEDS: Metoprolol Tartrate 50 MG Tablet PO (10:12)
[2019-06-16] MEDS: Enoxaparin 40 MG/0.4 ML Syringe SC (10:13)
[2019-06-16] MEDS: Lisinopril 10 MG Tablet PO (10:13)
[2019-06-16] MEDS: Sertraline 50 MG Tablet 25 MG PO (10:16)
[2019-06-16] MEDS: Pantoprazole Sodium 40 MG Tablet PO (10:16)
--- NOTE | 2019-06-16 11:58 | DS.PCM_ITS ---
Discharge Date and Diagnosis Date of Admission: 06/12/19 Date of Discharge: 06/16/19 - Primary Discharge Diagnosis #1 acute COPD exacerbation. #2 abnormal cardiac enzymes with intermittent chest pains, cardiac catheterization revealed nonobstructive CAD. 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 Mcgarry, cardiology. Operations: None Procedures: 2-D Echocardiogram, Cardiac catheterization, EKG Summary of Care Provided: Patient seen and examined on the day of discharge appeared to be stable to be discharged home. Shortness of breath continued to improve slowly and she is getting better. She has no more chest pain. She remains on 4 L of oxygen, other vital signs stable. The patient is a 64 year old F patient presented to the emergency room because of worsening shortness of breath with cough and she was found to have acute COPD exacerbation. Patient also complained of intermittent chest pain and she was found to have abnormal cardiac enzymes. Her EKG revealed no evidence of ischemic changes. Chest x-ray showed no acute findings, revealed chronic COPD changes. Troponin was borderline elevated and flat. It was 0.048, 0.38, 0.45, 0.51. Patient was treated with IV Zithromax, IV Solu-Medrol and bronchodilators. Her routine blood work was unremarkable. Respiratory panel for viruses was negative. Blood culture showed no growth in 48 hours. Cardiology consulted because of the abnormal cardiac enzymes and 2D echocardiogram done. 2D echocardiogram revealed normal LV size and function, ejection fraction was 65%, stage I diastolic dysfunction. Because of this trending up cardiac enzymes, cardiology recommended cardiac catheterization. Patient underwent cardiac catheterization that revealed nonobstructive CAD and patent mid RCA stent, no evidence of new lesions and no cardiac interventions performed. With IV steroids and bronchodilator, her symptoms improved. She remained on 4 L of oxygen and she has been on 3 L at home. Patient ambulated and her pulse ox remained around 96% on 3 L. Patient discharged home in a stable condition, she completed 3 days of IV Zithromax, discharged on tapering course of prednisone, continueD on her inhalers including Symbicort, Incruse El lipta and albuterol PRN, discharged on oxygen at 3 to 4 L, recommended from with PCP this coming Wednesday as scheduled. - Physical Exam Vitals/I&O's: Vital Signs Temp Pulse Resp BP Pulse Ox 97.9 F 94 20 H 148/71 H 98 06/16/19 10:10 06/16/19 10:12 06/16/19 10:10 06/16/19 10:10 06/16/19 10:10 Oxygen Flow Rate (L/min) [ 3 AMBULATION with Oxygen] Oxygen Flow Rate (L/min) 4 Oxygen Delivery Method Nasal Cannula Weight: 161 lb 9.581 oz Body Mass Index (BMI) 30.5 Intake and Output for Last 24 Hours 06/14/19 06/15/19 06/16/19 23:59 23:59 23:59 Intake Total 749.25 / 1199.25 1700 / 1700 500 / 500 Output Total 250 / 250 150 / 150 Balance 499.25 / 949.25 1550 / 1550 500 / 500 General: Alert, Oriented x3, Cooperative, No apparent distress HEENT: Atraumatic, PERRLA, EOMI, Normocephalic Oral: Moist Mucosa, No Gingival or Mucosal Lesions/ Ulcerations Neck: Supple, No JVD, Negative Carotid Bruits, Trachea Midline, Thyroid Normal Size and Texture Lungs: Clear to auscultation, Normal air movement, No rhonchi, No wheeze, No rales, Diminished Cardiovascular: Regular rate, Regular Rhythm, Normal S1, Normal S2, PMI Normal Abdomen: Bowel Sounds Present, Soft, Non Tender, Non-Distended, No Hepato- splenomegaly Extremities: No clubbing, No cyanosis, No edema Skin: No rashes, No breakdown Lymphatic: No Cervical, Supraclavicular, or Inguinal Adenopathy Neurological: Cranial nerves II-XII grossly intact, Neuro grossly intact Psych/Mental Status: Normal Affect, Appropriate, Alert and oriented to time, place, person, mood and affect Microbiology Past 72 Hours 06/12/19 21:55 Blood Culture (Wb) #2 - Anticubital Right Blood Culture - Preliminary No growth in 48 hours. 06/12/19 21:15 Blood Culture (Wb) - Anticubital Left Blood Culture - Preliminary No growth in 48 hours. Discharge Activity: Return to Normal Activity Weight Bearing Status: Weight bearing as tolerated Call your doctor if you observe: Fever of 101 or Higher, Shortness of breath, Dizziness, Fainting spells, Chest pain, Increased palpitations (irregular heartbeat), Uncontrolled pain Home Medications: Medications to take at Discharge Sertraline HCl 25 mg PO DAILY 05/20/18 pantoprazole 40 mg tablet,delayed release 40 mg PO DAILY 02/15/19 Atorvastatin Calcium 80 mg PO QHS 05/08/19 Lisinopril/Hydrochlorothiazide [Lisinopril-Hctz 10-12.5 mg Tab] 1 tab PO DAILY 05/08/19 Ticagrelor [Brilinta] 90 mg PO BID 05/08/19 Umeclidinium [place] Inhaler [Incruse Ellipta Inhaler] 1 inh INHALATION DAILY 05/08/19 Acetaminophen [Tylenol Tablet] 650 mg PO Q6H PRN PRN tab 05/10/19 albuterol sulfate 90 mcg/actuation aerosol inhaler 1 - 2 puff INHALATION Q4H PRN #18 g 05/24/19 budesonide-formoterol HFA 160 mcg-4.5 mcg/actuation aerosol inhaler 1 puff INHALATION BID #10.2 g 05/24/19 Aspirin E.C. [Ecotrin] 81 mg PO DAILY@0800 06/13/19 Melatonin 10 mg PO QHS PRN PRN 06/13/19 Metoprolol Tartrate [Lopressor (beta justin)] 50 mg PO BID 06/13/19 Prednisone 10 mg PO DAILY #30 tab 06/16/19 Following Prescrptions Were Given to Patient: Prednisone 10 mg PO DAILY #30 tab Transmission Status: Received by [facility] [facility] Primary Care Physician: Pili Alcocer [Primary Care Provider] - Please follow up with your Primary Care Physician in: as scheduled. Patient Instructions: COPD: Using Inhalers Disposition: Home Minutes spent on discharge:: 32 Patient Condition:: Stable Medical Necessity - Tobacco Use Smoking Status: Former smoker Meaningful Use Info Meaningful Use Diagnoses (Choose all that apply): None applicable Code Visit Inpatient E&M: 78287 Disch Hosp
--- NOTE | 2019-06-19 13:37 | CASEMGMT ---
ESTELA SCHMITZ DC PHONE CALL AR DATE: 06.16.2019 DC Disposition: Home Diagnosis on Discharge: Acute COPD exacerbation LACE/STRATA: 14 Intro role of CM to patient via phone. Pt has f/u with [facility]. Some medications were changed. Per pt, [facility] physician is call pulmonology office to schedule Sleep Study. Pt states she has an appt with [facility] on the . Voiced she wished they would come to her home. Pt has her medications, no other questions. Pt states she understands her discharge instructions and is feelig better. Stefania FLOREZN RN ACM
== END 2019-06-16 11:34 | disposition home or self-care (01) | DRG 140 ==
LOC: ED 22:48 → MS3 06-13 01:31
PROVIDERS: Admitting Provider Hospitalist; Emergency Provider Emergency Medicine; Visit Provider Hospitalist
DX: J44.1 Chronic obstructive pulmonary disease with (acute) exacerbation (principal); J96.11 Chronic respiratory failure with hypoxia; I25.10 Atherosclerotic heart disease of native coronary artery without angina pectoris; I11.0 Hypertensive heart disease with heart failure; I50.42 Chronic combined systolic (congestive) and diastolic (congestive) heart failure; E78.5 Hyperlipidemia, unspecified; G47.33 Obstructive sleep apnea (adult) (pediatric); K21.9 Gastro-esophageal reflux disease without esophagitis; F32.9 Major depressive disorder, single episode, unspecified; F41.9 Anxiety disorder, unspecified; E66.9 Obesity, unspecified; Z68.32 Body mass index [BMI] 32.0-32.9, adult; Z99.81 Dependence on supplemental oxygen; Z79.02 Long term (current) use of antithrombotics/antiplatelets; Z79.82 Long term (current) use of aspirin; Z79.899 Other long term (current) drug therapy; I25.2 Old myocardial infarction; Z87.891 Personal history of nicotine dependence; Z90.710 Acquired absence of both cervix and uterus; Z95.5 Presence of coronary angioplasty implant and graft; Z95.1 Presence of aortocoronary bypass graft
CPT/HCPCS: 36415; 71046; 80048; 83605; 84484; 85025; 87040; 87804; 93005; 93306; 93454; 94640; 99152; 99251; 99285; J7030; J7040; J7050; Q9957; Q9967; A4216; C1769; C8929; G0463

== ENCOUNTER 2019-08-10 06:58 | Emergency (ER) | payer MEDICAID, SELFPAY ==
[2019-06-13 00:19] VITALS: BMI 30.5
--- NOTE | 2019-08-10 06:46 | EKG12_ITS ---
Test Reason : Blood Pressure : / mmHG Vent. Rate : 110 BPM Atrial Rate : 110 BPM P-R Int : 166 ms QRS Dur : 080 ms QT Int : 334 ms P-R-T Axes : 086 268 086 degrees QTc Int : 452 ms Sinus tachycardia Right atrial enlargement Right superior axis deviation Pulmonary disease pattern Right ventricular hypertrophy Inferior infarct , age undetermined Abnormal ECG Confirmed by CLARKE CLEMENTS, TRICE ([id number]), material expeditor TRACE PALAFOX ([id number]) on 08/15/2019 2:24:41 PM Referred By: LOLLY Confirmed By:BRIAN MIR MD
--- NOTE | 2019-08-10 08:05 | RAD_ITS ---
STUDY: X-RAY CHEST REASON FOR EXAM: Female, 64 years old. SOB, COPD TECHNIQUE: Single AP portable view of the chest. COMPARISON: Comparison is made with prior study dated June 12, 2019. FINDINGS: EKG electrodes are seen. Hyperinflation. Stable mild increased linear markings at the lung bases slightly worse on the right side suggestive of a scarring. There is no demonstrated pleural abnormality. Normal size heart. Normal mediastinum and rafia. There is prominence of the pulmonary hilar arteries without peripheral pulmonary vascular congestion, suggesting pulmonary hypertension. Normal visualized aortic arch and descending thoracic aorta. There are degenerative changes of the visualized thoracic spine. Normal visualized ribs, clavicles, and shoulders. There is no demonstrated abnormality of the visualized soft tissue structures of the upper abdomen. RAD/Chest 1 View (Portable) IMPRESSION: Hyperinflation. Stable mild degree of increasing markings at the lung bases centrally worse on the right side suggestive of scarring. Electronically Signed: Bismark Milan, at 9:45 EDT , Service support ,
[2019-08-10 10:23] LABS: Albumin, Serum 3.6 g/dL (3.2-5.0); BUN 16 mg/dL (7-18); BUN/Creat Ratio 25.8 RATIO (10-20); Calcium,Total 9.9 mg/dL (8.5-10.1); Creatinine, Serum 0.62 mg/dL (0.55-1.02); EST Glomerular Filtration Rate 103 mL/min (>60); Est Glom Filt Rate - Afr Amer 125 mL/min (>60); Globulin 3.5 g/dL (2.2-4.2); Glucose 110 mg/dL (74-106); Protein, Total 7.1 g/dL (6.4-8.2)
[2019-08-10 10:24] LABS: AST(SGOT) 37 U/L (15-37); Alanine Aminotransfer ALT/SGPT 23 U/L (13-56); Alkaline Phosphatase 70 U/L (45-117); Sodium Level 142 mmol/L (136-145)
[2019-08-10 10:25] LABS: Anion Gap 9 (5-15); Chloride 106 mmol/L (98-107)
[2019-08-10 10:27] LABS: Potassium 6.9 mmol/L (3.5-5.1)
[2019-08-10 10:29] LABS: BNP,B-Type NATRIURETIC PEPTIDE 35.6 pg/mL (0-100)
[2019-08-10 14:57] LABS: Absolute Lymphocyte Count 2.69 X10^3/uL (0.83-4.51); Absolute Neutrophil Count 6.2 X10^3/uL (2.0-7.7); Basophil% 1.1 % (0-1); Eosinophils% 6.5 % (0-5); Hematocrit 44.7 % (37-47); Hemoglobin 14.4 g/dL (12.0-15.0); Lymphocyte # 2.69 X10^3/ul (4.0); Lymphocyte % 24.7 % (19-41); Mean Corp Hgb Conc 32.2 g/dL (32-36); Mean Corpuscular Hgb 28.6 pg (27.0-32.0); Mean Corpuscular Volume 88.9 fL (81-99); Mean Platelet Vol. 10.5 fl (6.2-12.0); Monocyte% 10.3 % (0-10); Neutrophil # 6.21 X10^3/uL (2.7-7.7); Neutrophil % 57.2 % (47-70); Platelet Count 289 K/mm3 (150-450); RBC Distribution Width CV 43.2 % (11.6-14.6); RBC Distribution Width SD 13.2 fl (35.1-43.9); Red Blood Count 5.03 M/mm3 (4.2-5.4); White Blood Count 10.9 K/mm3 (4.4-11.0)
[2019-08-10 14:58] LABS: Basophil# 0.12 X10^3/uL; Eosinophil# 0.71 X10^3/uL; Monocyte# 1.12 X10^3/uL; NRBC Flagged by Analyzer 0 % (0-5)
== END 2019-08-10 10:00 | disposition home or self-care (01) ==
PROVIDERS: Emergency Provider Emergency Medicine
DX: J44.1 Chronic obstructive pulmonary disease with (acute) exacerbation (principal); R79.89 Other specified abnormal findings of blood chemistry; I50.9 Heart failure, unspecified; I10 Essential (primary) hypertension; R00.0 Tachycardia, unspecified; Z99.81 Dependence on supplemental oxygen; Z87.891 Personal history of nicotine dependence
CPT/HCPCS: 36415; 71045; 80053; 83605; 83880; 84484; 85025; 87040; 87804; 93005; 96374; 99284

== ENCOUNTER 2020-01-15 04:14 | Emergency (ER) | payer MEDICAID, SELFPAY ==
[2019-08-23 08:12] VITALS: BMI 30.5
[2020-01-15 04:16] VITALS: BP 169/113; PULSE 111; RESP 22; TEMP 36.1; O2SAT 98; BMI 26.2
[2020-01-15 04:20] VITALS: BP 169/113; PULSE 110; PULSE 111; RESP 24; TEMP 36.1; O2SAT 99
--- NOTE | 2020-01-15 04:26 | EKG12_ITS ---
Test Reason : CHEST PAIN Blood Pressure : / mmHG Vent. Rate : 101 BPM Atrial Rate : 101 BPM P-R Int : 168 ms QRS Dur : 070 ms QT Int : 346 ms P-R-T Axes : 081 064 074 degrees QTc Int : 448 ms Sinus tachycardia Low Voltage QRS (Limb Leads) Nonspecific ST abnormality Abnormal ECG Confirmed by REGGIE CLEMENTS, BRAIN ([id number]), visual effects editor MOISE GAUIRRE ([id number]) on 01/17/2020 9:33:30 AM Referred By: Deidre Ventura Confirmed By:BRAIN PAREDES MD
--- NOTE | 2020-01-15 04:27 | ED.VISSUMM ---
- ER Visit Summary Date of Service: 01/15/20 Chief Complaint: Shortness of breath History of Present Illness: The patient is a 64 F who sees the [facility] and Dr. Heart. She reports she has shortness of breath began 2 to 3 days ago and is gradually gotten worse. States that it is worse when she exerts herself. Is relieved by oxygen and albuterol. She reports that she has had continuous chest tightness for the past 2 to 3 days. She denies any associated nausea, vomiting, or diaphoresis. She states this is similar to when her COPD is acting up previously. However, she denies cough. No fever or chills. No possible exposure to coronavirus. Patient reports that she has an aching headache that is 4 out of 10 in severity. Similar to prior headaches. She also states that she feels very anxious. Physical Examination: Vitals: 96.9, 116/113, 111, 22, 98% on 4.5 L of oxygen (home O2). General: Well-nourished and well-developed. Head: Normocephalic atraumatic. Neck: Supple, no lymphadenopathy. No JVD. Nontender. Cardiovascular: Tachycardic regular rhythm. No murmurs. Respiratory: Mild respiratory distress. Bilateral wheezing with greatly decreased air movement. Abdominal: Soft, nontender, nondistended, normal bowel sounds. No guarding, rebound, or peritoneal signs. Back: Nontender. Extremities: Nontender, 1+ pitting edema lower extremities bilaterally. Skin: Normal color, no rash. Neurologic: Alert and oriented ?3. Cranial nerves II through XII are intact. Normal strength and sensation. Psych: Normal affect. Test Results: EKG is sinus tachycardia at 101. She has ST depression in leads V3 to V6 and and T wave inversion in lead V2. However, this is unchanged from June of this year. Troponin is less than 0.015 despite greater than 2 days of constant pain. Chem-7 shows a chloride of 97, CO2 of 34, glucose 155. CBC shows a white count of 14.5 with 18 lymphocytes. Chest x-ray shows chronic changes. Emergency Department Course and Treatment: Patient had an IV placed. She was given albuterol and Atrovent aerosols. She was given Solu-Medrol IV. She is resting more comfortably. She was given a dose of Ativan IV for her anxiety. Patient reports all I need is steroids and antibiotics. She was given a dose of prednisone and doxycycline p.o. She feels well and would like to go home. Treatment Plan: Patient will be discharged with a prednisone taper and doxycycline. She given a prescription for 8 Ativan. Instructed to follow-up with her primary care physician in 1 to 2 days if not improving. Return to the emergency department for any worsening symptoms. Disposition: To home in improved and stable condition. Impression: 1. COPD exacerbation. 2. Atypical chest pain. 3. Anxiety. This note was generated with [employer] software. It may contain incorrect words, spelling, and punctuation that were not noted in review of the chart prior to signing ED Disposition - Plan for ED Patient: Instructions: ED COPD Flare Prescriptions: Lorazepam [Ativan] 1 mg PO TID PRN #10 tablet PRN Reason: Anxiety Doxycycline 100 mg PO BID #14 capsule Prednisone 10 mg PO DAILY #63 tablet Referrals: Pili Alcocer [Primary Care Provider] - 1-2 Days if not improving
[2020-01-15] MEDS: MethylPREDNISolone 125 MG/2 ML Vial IV (04:34)
[2020-01-15] MEDS: LORazepam 2 MG/ML Syringe 1 MG IV (04:35)
[2020-01-15 04:42] LABS: Absolute Lymphocyte Count 2.66 X10^3/uL (0.83-4.51); Absolute Neutrophil Count 9.7 X10^3/uL (2.0-7.7); Basophil# 0.08 X10^3/uL; Basophil% 0.6 % (0-1); Eosinophil# 0.69 X10^3/uL; Eosinophils% 4.7 % (0-5); Hematocrit 46.1 % (37-47); Hemoglobin 14.5 g/dL (12.0-15.0); Lymphocyte # 2.66 X10^3/ul (4.0); Lymphocyte % 18.3 % (19-41); Mean Corp Hgb Conc 31.5 g/dL (32-36); Mean Corpuscular Hgb 27.7 pg (27.0-32.0); Mean Platelet Vol. 10.8 fl (6.2-12.0); Monocyte# 1.34 X10^3/uL; Monocyte% 9.2 % (0-10); NRBC Flagged by Analyzer 0 % (0-5); Neutrophil # 9.72 X10^3/uL (2.7-7.7); Neutrophil % 66.9 % (47-70); Platelet Count 333 K/mm3 (150-450); RBC Distribution Width CV 13.6 % (11.6-14.6); Red Blood Count 5.24 M/mm3 (4.2-5.4); White Blood Count 14.5 K/mm3 (4.4-11.0)
[2020-01-15] MEDS: Ipratropium/Albuterol Sulfate 3 ML AMPUL.NEB INHALATION (04:45)
[2020-01-15 04:46] VITALS: PULSE 93; RESP 18
--- NOTE | 2020-01-15 04:50 | RAD_ITS ---
STUDY: X-RAY CHEST REASON FOR EXAM: Female, 64 years old. SOB THAT STARTED 2 DAYS AGO TECHNIQUE: Single AP portable view of the chest. COMPARISON: 08/10/2019. FINDINGS: The lungs are clear and expanded. There are emphysematous changes in the upper lung chan. There is no demonstrated pleural abnormality. Normal size heart. Normal mediastinum and rafia. Normal visualized pulmonary arteries. There is atherosclerotic calcification of the aortic arch. Normal visualized thoracic spine. Normal visualized ribs, clavicles, and shoulders. There is no demonstrated abnormality of the visualized soft tissue structures of the upper abdomen. RAD/Chest 1 View (Portable) IMPRESSION: COPD. No evidence for acute cardiopulmonary pathology. Electronically Signed: Jose Hawthorne MD at 5:35 EDT , Service support ,
[2020-01-15 05:01] LABS: Anion Gap 5 (5-15); BUN 16 mg/dL (7-18); BUN/Creat Ratio 20.3 RATIO (10-20); Calcium,Total 9.5 mg/dL (8.5-10.1); Chloride 97 mmol/L (98-107); Creatinine, Serum 0.79 mg/dL (0.55-1.02); EST Glomerular Filtration Rate 78 mL/min (>60); Est Glom Filt Rate - Afr Amer 95 mL/min (>60); Estimated Creatinine Clearance 57.65 ml/min; Glucose 155 mg/dL (74-106); Potassium 4.1 mmol/L (3.5-5.1); Sodium Level 136 mmol/L (136-145)
[2020-01-15 05:14] VITALS: BP 125/105; PULSE 84; RESP 13; O2SAT 99
[2020-01-15] MEDS: predniSONE 20 MG Tablet 40 MG PO (05:18)
[2020-01-15] MEDS: Doxycycline 100 MG CAPSULE PO (05:18)
[2020-01-15] MEDS: Albuterol 2.5 MG/3 ML VIAL.NEB. INHALATION (05:24)
[2020-01-15 05:25] VITALS: PULSE 85; RESP 18
[2020-01-15 05:40] VITALS: BP 136/81; PULSE 88; RESP 19; O2SAT 99
== END 2020-01-15 05:41 | disposition home or self-care (01) ==
LOC: ED 05:03
PROVIDERS: Emergency Provider Emergency Medicine; Referring Provider Nurse Practitioner Family
DX: J44.1 Chronic obstructive pulmonary disease with (acute) exacerbation (principal); R07.89 Other chest pain; F41.9 Anxiety disorder, unspecified; I11.0 Hypertensive heart disease with heart failure; I50.9 Heart failure, unspecified; I25.10 Atherosclerotic heart disease of native coronary artery without angina pectoris; R51 Headache; R00.0 Tachycardia, unspecified; F32.9 Major depressive disorder, single episode, unspecified; Z79.82 Long term (current) use of aspirin; Z79.899 Other long term (current) drug therapy; Z87.891 Personal history of nicotine dependence
CPT/HCPCS: 71045; 80048; 84484; 85025; 93005; 94640; 96374; 96375; 99285; A4216

== ENCOUNTER 2020-02-15 06:43 | Emergency (ER) | payer MEDICAID, SELFPAY ==
[2020-02-15] VITALS (7 sets, daily range): BP systolic 126–143; BP diastolic 67–119; PULSE 68–101; RESP 15–24; TEMP 36.6–36.9; O2SAT 97–99; BMI 29.5
--- NOTE | 2020-02-15 06:54 | ED.VIS.GEN ---
History of Present Illness Chief Complaint: Shortness of Breath Informant: Patient Narrative: 65-year-old female with history of CAD, sleep apnea, COPD, NM with stents, CHF presenting with shortness of breath over the last 2 weeks. She describes it as intermittent. She is not having any chest pain. She states that she gets short of breath with exertion. She does do breathing treatments at home which are not seeming to help. She denies fever but states she gets a headache and when she gets a headache she takes Tylenol. She does not have a thermometer at home. Patient complains of body aches all over intermittently as well. Denies history of DVT/PE. Patient states that she lives at home with her and son. Her son takes care of them. Nobody has had symptoms of COVID?19. She herself has no loss of taste or smell, fever, chills. She does complain of myalgias. She states that she has not been in contact with anybody that is ill. She states she does have a palliative care consult which recently came to her house, but she does not know why she is seeing palliative care. 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 Lives: Spouse/ Significant Other, With Family Smoking Status: Former smoker Alcohol: None Drugs: None - Family History Paternal Family History: Family History (Last Reviewed 08/22/19 @ 13:29 by Viviana Vasquez) Mother COPD (chronic obstructive pulmonary disease) Family History: Reports: - - Patient notes that her father took chronic narcotics for unclear etiology, denies any history in her father of heart disease, diabetes or cancer. Maternal Family History: Family History (Last Reviewed 08/22/19 @ 13:29 by Viviana Vasquez) Mother COPD (chronic obstructive pulmonary disease) Family History: Reports: Asthma, COPD Review of Systems General: Denies: Chills, Fever, Malaise Eyes: Denies: Visual changes - bilaterally, Diplopia ENT: Reports: Rhinorrhea Cardiovascular: Denies: Chest pain, Palpitations, Heart racing Respiratory: Reports: Dyspnea, Cough, Dyspnea on exertion Gastrointestinal: Denies: Abdominal pain, Nausea, Vomiting Genitourinary: Denies: Dysuria, Hematuria Musculoskeletal: Reports: Myalgias. Denies: Arthralgias, Swelling Skin: Denies: Rash, Abscess Neurological: Reports: Headache. Denies: Parasthesia, Numbness Psych: Denies: Depression, Anxiety Physical Exam Vital Signs/Narrative: Vital Signs Temp Pulse Resp BP Pulse Ox 02/15/20 06:45 98.5 F 101 H 24 H 143/119 H 99 General: Obese, No Acute Distress Eyes: Perrl, EOMI ENT: No rhinorrhea, Nasal congestion Cardiovascular: Regular rate, Regular rhythm Respiratory: Wheezing, Decreased Air Movement. Negative for: Retractions, Chest tenderness Abdomen: Soft, Nontender Back: Nontender, Normal Inspection Extremities: Nontender, No edema Skin: Normal color, No rash. Negative for: Cyanosis, Diaphoresis Neurological: Alert, Oriented x3 Psychological: Normal affect, Normal Mood Diagnostic/Tx/Re-eval Clinical Impression(s) from Imaging Studies Chest X-Ray 02/15/20 07:25 IMPRESSION: Normal x-ray examination of the chest. Electronically Signed: Marko Rosario MD at 8:15 EDT Tel , Service support , Laboratory Data 02/15/20 02/15/20 06:50 06:50 WBC 9.7 RBC 4.82 Hgb 13.7 Hct 43.8 MCV 90.9 MCH 28.4 MCHC 31.3 L RDW Std Deviation 44.2 H RDW Coeff of Ruy 13.3 Plt Count 299 MPV 10.0 Immature Gran % (Auto) 0.200 Neut % (Auto) 59.2 Lymph % (Auto) 24.7 [place] % (Auto) 9.1 Eos % (Auto) 6.1 H Baso % (Auto) 0.7 Absolute Neuts (auto) 5.8 Absolute Lymphs (auto) 2.40 Nucleated RBC % 0 Sodium 134 L Potassium 4.0 Chloride 94 L Carbon Dioxide 36.0 H Anion Gap 4 L BUN 15 Creatinine 0.70 Estim Creat Clear Calc 64.22 Est GFR (MDRD) Af Amer 108 Est GFR (MDRD) Non-Af 89 BUN/Creatinine Ratio 21.4 H Glucose 156 H Calcium 9.3 Troponin I < 0.015 - Rhythm Strip Rhythm Strip: Sinus Rhythm Rate: 70 - EKG Initial EKG Interpretation: Non-Specific ST Changes - Medical Decision Making Presents with shortness of breath which is been worsening over the last couple of weeks. On examination she is wheezing. She does complain of body aches but has not had a fever, change in taste or smell or other symptoms of COVID?19. She was given breathing treatments and Solu-Medrol and felt much improved. She is at her baseline oxygen. Her EKG is sinus rhythm with nonspecific ST changes. She is not complaining of any chest pain. Her blood work is all normal. Chest x-ray is negative. Given that she has stable vital signs on her baseline O2 and feels much improved I will discharge her home with a prednisone burst. She has breathing treatments at home. She is stable at this time for discharge. She was tested for COVID?19 and will quarantine until results come. Impression: 1. COPD exacerbation 2. Viral syndrome ED Disposition - Plan for ED Patient: Disposition: Home or Assisted Living Instructions: ED Upper Resp Infec No Abx Tx, ED COPD Flare Prescriptions: predniSONE tablet 60 mg PO DAILY #15 tab Transmission Status: Received by VANDANA BERGERON-[address] [facility] Referrals: Pili Alcocer [Primary Care Provider] -
--- NOTE | 2020-02-15 07:10 | EKG12_ITS ---
Test Reason : SOB Blood Pressure : / mmHG Vent. Rate : 070 BPM Atrial Rate : 070 BPM P-R Int : 174 ms QRS Dur : 076 ms QT Int : 382 ms P-R-T Axes : 083 -05 038 degrees QTc Int : 412 ms Normal sinus rhythm Nonspecific T wave abnormality Abnormal ECG Confirmed by CLARKE CLEMENTS, TRICE ([id number]), manuscript editor CINTHYA DIEZ ([id number]) on 02/21/2020 10:57:11 AM Referred By: DANETTE Confirmed By:BRIAN MIR MD
[2020-02-15 07:20] LABS: Absolute Neutrophil Count 5.8 X10^3/uL (2.0-7.7); Basophil# 0.07 X10^3/uL; Basophil% 0.7 % (0-1); Eosinophil# 0.59 X10^3/uL; Eosinophils% 6.1 % (0-5); Hematocrit 43.8 % (37-47); Hemoglobin 13.7 g/dL (12.0-15.0); Lymphocyte % 24.7 % (19-41); Mean Corp Hgb Conc 31.3 g/dL (32-36); Mean Corpuscular Hgb 28.4 pg (27.0-32.0); Mean Corpuscular Volume 90.9 fL (81-99); Monocyte# 0.89 X10^3/uL; Monocyte% 9.1 % (0-10); NRBC Flagged by Analyzer 0 % (0-5); Neutrophil # 5.76 X10^3/uL (2.7-7.7); Neutrophil % 59.2 % (47-70); Platelet Count 299 K/mm3 (150-450); RBC Distribution Width CV 13.3 % (11.6-14.6); RBC Distribution Width SD 44.2 fl (35.1-43.9); Red Blood Count 4.82 M/mm3 (4.2-5.4); White Blood Count 9.7 K/mm3 (4.4-11.0)
--- NOTE | 2020-02-15 07:25 | RAD_ITS ---
STUDY: X-RAY CHEST REASON FOR EXAM: Female, 65 years old. SOB X 4 DAYS MADRIGAL 4-5 DAYS TECHNIQUE: Single AP portable view of the chest. COMPARISON: 01/15/2020 FINDINGS: The lungs are clear and expanded. There is no demonstrated pleural abnormality. Normal size heart. Normal mediastinum and rafia. Normal visualized pulmonary arteries. Normal visualized aortic arch and descending thoracic aorta. Normal visualized thoracic spine. Normal visualized ribs, clavicles, and shoulders. There is no demonstrated abnormality of the visualized soft tissue structures of the upper abdomen. RAD/Chest 1 View (Portable) IMPRESSION: Normal x-ray examination of the chest. Electronically Signed: Marko Rosario MD at 8:15 EDT Tel , Service support ,
[2020-02-15] MEDS: Ipratropium/Albuterol Sulfate 3 ML AMPUL.NEB INHALATION (07:41)
[2020-02-15] MEDS: Albuterol 2.5 MG/3 ML VIAL.NEB. INHALATION (07:41)
[2020-02-15] MEDS: MethylPREDNISolone 125 MG/2 ML Vial IV (07:41)
[2020-02-15 08:09] LABS: Anion Gap 4 (5-15); BUN 15 mg/dL (7-18); BUN/Creat Ratio 21.4 RATIO (10-20); Calcium,Total 9.3 mg/dL (8.5-10.1); Chloride 94 mmol/L (98-107); EST Glomerular Filtration Rate 89 mL/min (>60); Est Glom Filt Rate - Afr Amer 108 mL/min (>60); Estimated Creatinine Clearance 64.22 ml/min; Glucose 156 mg/dL (74-106); Sodium Level 134 mmol/L (136-145)
== END 2020-02-15 09:14 | disposition home or self-care (01) ==
PROVIDERS: Emergency Provider Student in an Organized Health Care Education/Training Program
DX: J44.1 Chronic obstructive pulmonary disease with (acute) exacerbation (principal); B34.9 Viral infection, unspecified; I25.119 Atherosclerotic heart disease of native coronary artery with unspecified angina pectoris; I50.9 Heart failure, unspecified; E78.5 Hyperlipidemia, unspecified; F32.9 Major depressive disorder, single episode, unspecified; F41.9 Anxiety disorder, unspecified; G47.33 Obstructive sleep apnea (adult) (pediatric); Z79.82 Long term (current) use of aspirin; Z79.899 Other long term (current) drug therapy; I25.2 Old myocardial infarction; Z95.5 Presence of coronary angioplasty implant and graft
CPT/HCPCS: 71045; 80048; 84484; 85025; 87635; 93005; 94640; 96374; 99251; 99285; A4216; G0463; U0003

== ENCOUNTER 2020-07-18 12:39 | Outpatient (RCR) | payer MEDICAID, SELFPAY ==
[2020-02-15 06:45] VITALS: BMI 29.5
[2020-07-18] MEDS: COVID-19 VACC, MRNA(PFIZER)/PF 30 MCG/0.3 ML SYRINGE IM (14:14)
[2020-08-08] MEDS: COVID-19 VACC, MRNA(PFIZER)/PF 30 MCG/0.3 ML SYRINGE IM (13:45)
== END 2020-10-15 23:59 ==
LOC: IMMUN 12:39
PROVIDERS: Visit Provider Family Medicine
DX: Z23 Encounter for immunization (principal)
CPT/HCPCS: 0001A; 0002A; 91300